=== PATIENT | female | born 1940 | race Caucasian/White ===

== ENCOUNTER 2018-05-01 15:13 | Inpatient (IN) ==
[2018-05-01] MEDS: Sod Chloride 0.9% Inj 1,000 ML IV.SIG SCH ×2 (16:08→16:53)
[2018-05-01] MEDS ORDERED: Acetaminophen 325 MG Tablet PO ONE (16:22)
[2018-05-01] MEDS ORDERED: Piperacil/Tazo 3.375 GM Premix 50 ML IV.SIG ONE (16:22)
[2018-05-01] MEDS ORDERED: Vancomycin Inj 1,000 MG in Sodium Chlor 0.9% Inj 250 ML IV.SIG ONE (16:22)
--- NOTE | 2018-05-01 16:23 | XR ---
EXAM DATE: 05/01/2018 4:20 PM EST AGE/SEX: 77 years / Female INDICATIONS: Fever. CLINICAL DATA: This is the patient's initial encounter. Patient reports that signs and symptoms have been present for 3 days and indicates a pain score of 0/10. MEDICAL/SURGICAL HISTORY: Hypertension. Diabetes. None. COMPARISON: No prior exams available for comparison. FINDINGS: A single AP view of the chest demonstrates the lungs to be symmetrically aerated without evidence of mass, infiltrate or effusion. The cardiomediastinal contours are unremarkable. Osseous structures a re intact. CONCLUSION: No acute intrathoracic disease. Electronically signed by: Sam Simmons MD 05/01/2018 4:21 PM EST
--- NOTE | 2018-05-01 16:25 | ED ---
HPI General Chief complaint: Diabetic Stated complaint: Right Foot Pain/Poss Infection Complaint Time Seen by Provider: 05/01/18 16:15 Source: patient and RN notes reviewed Mode of arrival: ambulatory Limitations: no limitations History of Present Illness HPI narrative: 77-year-old female presents to the emergency department for evaluation of right great toe infection. She states it started about a week ago , but has been worsening. She reports fevers that started today. She has history of diabetes, hypertension. She denies any cough, congestion, other symptoms. 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 Current pain is 7/10. Moderate severity. Patient also reports pain to the right knee since a fall 1 week ago. She states the pain to her knee is improving. Onset (ago): week(s) Location: right and lower extremity Radiation: non-radiation Severity: moderate Severity scale (1-10): 7 Quality: aching Pain Consistency: constant Relieving factors: none Exacerbating factors: none Associated symptoms: Reports fever/chills; Denies confusion, chest pain, cough, diaphoresis, headaches, loss of appetite, malaise, nausea/vomiting, rash, seizure, shortness of breath, syncope and weakness Related Data Home Medications Medication Instructions Recorded Confirmed chlorthalidone 25 mg PO DAILY 05/01/18 05/01/18 insulin aspart U-100 [Novolog 1 - 10 sliding scale dose SUBCUT 05/01/18 05/01/18 U-100 Insulin aspart] TIDAC insulin detemir U-100 [Levemir 30 unit SUBCUT QPM 05/01/18 05/01/18 U-100 Insulin] insulin detemir U-100 [Levemir 45 unit SUBCUT QAM 05/01/18 05/01/18 U-100 Insulin] metoprolol tartrate 12.5 mg PO BID 05/01/18 05/01/18 rosuvastatin [Crestor] 5 mg PO DAILY 05/01/18 05/01/18 Allergies Allergy/AdvReac Type Severity Reaction Status Date / Time adhesive Allergy Unknown Rash Unverified 05/01/18 15:33 Sulfa (Sulfonamide Allergy Unknown Hives Unverified 05/01/18 15:33 Antibiotics) acetaminophen [From Lortab] Allergy Hives Verified 05/01/18 15:33 hydrocodone [From Lortab] Allergy Hives Verified 05/01/18 15:33 lovastatin, amlodipine Allergy Intermediate Hives Uncoded 05/01/18 15:33 besylate, alcohol (drinking) PEPPERS Allergy Unknown Anaphylaxis Uncoded 05/01/18 15:33 Review of Systems ROS: all other systems reviewed are negative PMFSH Medical History Medical History Aneurysm (Acute) Diabetes (Acute) Hypertension (Acute) Social History Social History Substance History: No History of Abuse Second Hand Smoke Exposure: No Smoking Status: Never smoker How Often Do You Have a Drink Containing Alcohol: Never Recent Travel in [facility] within the Last 8 Weeks: No Recent Out of Country Travel within the Last 8 Weeks: No Exam Narrative Exam Narrative: GENERAL: Well-nourished, well-developed female patient, temp of 101.4 SKIN: Focused skin assessment warm/dry. Patient has ulcer to the dorsal aspect of the right great toe with erythema to the entire great toe and the distal foot HEAD: Normocephalic. Atraumatic EYES: No scleral icterus. No injection or drainage. NECK: Supple, trachea midline. No JVD or lymphadenopathy. CARDIOVASCULAR: Regular rate and rhythm without murmurs, gallops, or rubs. Right pedal pulse is 2+ RESPIRATORY: Breath sounds equal bilaterally. No accessory muscle use. Lung sounds are clear to auscultation GASTROINTESTINAL: Abdomen soft, non-tender, nondistended. MUSCULOSKELETAL: No cyanosis, or edema. Patient has full flexion-extension of the right knee BACK: Nontender without obvious deformity. No CVA tenderness. Course Initial Documented Vital Signs Temperature 101.4 F H 05/01/18 15:25 Pulse Rate 101 H 05/01/18 15:25 Respiratory Rate 22 05/01/18 15:25 Blood Pressure 179/79 H 05/01/18 15:25 Last Documented Vital Signs Temperature 101.4 F H 05/01/18 15:25 Pulse Rate 89 05/01/18 17:14 Respiratory Rate 23 05/01/18 16:57 Blood Pressure 162/72 H 05/01/18 16:57 Pulse Oximetry 98 05/01/18 16:57 Medical Decision Making MDM Narrative Medical decision making narrative: 77-year-old female, afebrile temperature 101.4, presents to the emergency department for right great toe infection. Patient is diabetic. Sepsis workup is initiated. IV is obtained. CBC, CMP, CRP, lactic acid, blood cultures x2, UA, chest x-ray, x-ray of the right foot, x-ray of the right knee are ordered and pending. Patient is given normal saline 2 L IV bolus, vancomycin 1 g IV, Zosyn 3.375 g IV. Patient states she is not allergic to Tylenol. She is given Tylenol 650 mg p.o. for fever. CBC shows leukocytosis 19.8. CMP shows slight hyponatremia 130, BUN 25, creatinine 1.48, hyperglycemia 357. CRP is 12. Lactic acid is 2.9. Magnesium is 2.1. UA is negative. Chest x-ray shows no acute intrathoracic disease. X- ray of the right foot shows no acute fracture or joint dislocation. X-ray of the right knee shows no acute fracture. Dr. Cabral accepted admission. Medical Screen Exam Complete: Yes Emergency Medical Condition: Yes Lab Data Result diagrams: 05/01/18 16:25 05/01/18 16:25 Lab Results 05/01/18 05/01/18 05/01/18 Range/Units 16:20 16:20 16:25 WBC 19.8 H (4.0-11.0) th/mm3 RBC 4.10 (4.00-5.30) mil/mm3 Hgb 13.7 (11.6-15.3) gm/dL Hct 38.4 (35.0-46.0) % MCV 93.5 (80.0-100.0) fL MCH 33.5 (27.0-34.0) pg MCHC 35.9 (32.0-36.0) % RDW 13.5 (11.6-17.2) % Plt Count 251 (150-450) th/mm3 MPV 7.5 (7.0-11.0) fL Neut % (Auto) 85.8 H (16.0-70.0) % Lymph % (Auto) 6.0 L (9.0-44.0) % Todd % (Auto) 7.7 (0.0-8.0) % Eos % (Auto) 0.2 (0.0-4.0) % Baso % (Auto) 0.3 (0.0-2.0) % Neut # (Auto) 17.0 H (1.8-7.7) th/mm3 Lymph # (Auto) 1.2 (1.0-4.8) th/mm3 Todd # (Auto) 1.5 H (0.0-0.9) th/mm3 Eos # (Auto) 0.0 (0.0-0.4) th/mm3 Baso # (Auto) 0.1 (0.0-0.2) th/mm3 WBC Differential . Differential Comment Auto diff final Sodium (136-145) meq/L Potassium (3.5-5.1) meq/L Chloride (98-107) meq/L Carbon Dioxide (21.0-32.0) meq/L Anion Gap (5-15) meq/L BUN (7-18) mg/dL Creatinine (0.50-1.00) mg/dL Estimated GFR (>89) mL/min Random Glucose (74-106) mg/dL Lactic Acid 2.9 H (0.4-2.0) mmol/L Calcium (8.5-10.1) mg/dL Magnesium (1.5-2.5) mg/dL Total Bilirubin (0.2-1.0) mg/dL AST (15-37) U/L ALT (10-53) U/L Alkaline Phosphatase (45-117) U/L C-Reactive Protein (0.00-0.30) mg/dL Total Protein (6.4-8.2) g/dL Albumin (3.4-5.0) g/dL Urine Color Yellow (Yellw/Straw) Urine Clarity Clear (Clear) Urine pH 5.0 (5.0-8.5) Ur Specific Whipple 1.032 (1.002-1.035) Urine Protein Negative (Neg-Trace) mg/dL Urine Glucose (UA) 500 or greater (Negative) mg/dL Urine Ketones Trace H (Negative) mg/dL Urine Occult Blood Negative (Negative) Urine Nitrate Negative (Negative) Urine Bilirubin Negative (Negative) Urine Urobilinogen Less than 2 (Less than 2) mg/dL Ur Leukocyte Esterase Negative (Negative) Urine Mucus Few H (Occasional) /lpf Micro UA Comment Cath-culture not ind Ur Microscopic Review Not Reportable Urine Culture Comments Cath-cult not ind 05/01/18 05/01/18 Range/Units 16:25 16:25 WBC (4.0-11.0) th/mm3 RBC (4.00-5.30) mil/mm3 Hgb (11.6-15.3) gm/dL Hct (35.0-46.0) % MCV (80.0-100.0) fL MCH (27.0-34.0) pg MCHC (32.0-36.0) % RDW (11.6-17.2) % Plt Count (150-450) th/mm3 MPV (7.0-11.0) fL Neut % (Auto) (16.0-70.0) % Lymph % (Auto) (9.0-44.0) % Todd % (Auto) (0.0-8.0) % Eos % (Auto) (0.0-4.0) % Baso % (Auto) (0.0-2.0) % Neut # (Auto) (1.8-7.7) th/mm3 Lymph # (Auto) (1.0-4.8) th/mm3 Todd # (Auto) (0.0-0.9) th/mm3 Eos # (Auto) (0.0-0.4) th/mm3 Baso # (Auto) (0.0-0.2) th/mm3 WBC Differential Differential Comment Sodium 130 L (136-145) meq/L Potassium 4.1 (3.5-5.1) meq/L Chloride 95 L (98-107) meq/L Carbon Dioxide 25.0 (21.0-32.0) meq/L Anion Gap 10 (5-15) meq/L BUN 25 H (7-18) mg/dL Creatinine 1.48 H (0.50-1.00) mg/dL Estimated GFR 34 L (>89) mL/min Random Glucose 357 H (74-106) mg/dL Lactic Acid (0.4-2.0) mmol/L Calcium 9.4 (8.5-10.1) mg/dL Magnesium 2.1 (1.5-2.5) mg/dL Total Bilirubin 1.1 H (0.2-1.0) mg/dL AST 11 L (15-37) U/L ALT 18 (10-53) U/L Alkaline Phosphatase 100 (45-117) U/L C-Reactive Protein 12.00 H (0.00-0.30) mg/dL Total Protein 8.2 (6.4-8.2) g/dL Albumin 3.6 (3.4-5.0) g/dL Urine Color (Yellw/Straw) Urine Clarity (Clear) Urine pH (5.0-8.5) Ur Specific Whipple (1.002-1.035) Urine Protein (Neg-Trace) mg/dL Urine Glucose (UA) (Negative) mg/dL Urine Ketones (Negative) mg/dL Urine Occult Blood (Negative) Urine Nitrate (Negative) Urine Bilirubin (Negative) Urine Urobilinogen (Less than 2) mg/dL Ur Leukocyte Esterase (Negative) Urine Mucus (Occasional) /lpf Micro UA Comment Ur Microscopic Review Urine Culture Comments Imaging Data Radiologist's impression: Chest X-Ray 05/01/18 15:48 CONCLUSION: No acute intrathoracic disease. Foot X-Ray 05/01/18 15:48 CONCLUSION: No acute fracture or joint dislocation. Primary degenerative changes are noted throughout the foot. Knee X-Ray 05/01/18 16:22 CONCLUSION: Advanced arthropathy with moderate joint effusion No evidence of acute fracture. Discharge Plan Discharge Disposition Patient Disposition: 30 Still Patient Discharge Details Diagnosis: Diabetic foot infection, Sepsis Physicians Team ED Provider: Ang Booker ED Midlevel Provider: Aiyana Patterson Primary Care Provider: Jose Manuel Doyle Other Providers: Marisel Marley Rxs /Orders / Referrals /Forms Prescriptions: No Action chlorthalidone 25 mg Tablet 25 mg PO DAILY RF: 0 insulin aspart U-100 [Novolog U-100 Insulin aspart] 100 unit/mL Solution 1 - 10 sliding scale dose SUBCUT TIDAC RF: 0 rosuvastatin [Crestor] 5 mg Tablet 5 mg PO DAILY RF: 0 metoprolol tartrate 25 mg Tablet 12.5 mg PO BID RF: 0 insulin detemir U-100 [Levemir U-100 Insulin] 100 unit/mL Solution 45 unit SUBCUT QAM RF: 0 insulin detemir U-100 [Levemir U-100 Insulin] 100 unit/mL Solution 30 unit SUBCUT QPM RF: 0 Discharge Interventions Interventions: Vital Signs Last Done: 05/01/18 15:25 Status ED Status: With Doctor
[2018-05-01] MEDS ORDERED: Bisacodyl 10 MG Supp RECTAL PRN (16:42)
--- NOTE | 2018-05-01 16:43 | XR ---
EXAM DATE: 05/01/2018 4:40 PM EST AGE/SEX: 77 years / Female INDICATIONS: Right foot pain, fall. CLINICAL DATA: This is the patient's initial encounter. Patient reports that signs and symptoms have been present for 1 day and indicates a pain score of 10/10. MEDICAL/SURGICAL HISTORY: Hypertension. Diabetes. None. COMPARISON: No prior exams available for comparison. FINDINGS: Bony structures are intact and in normal alignment. There are primary degenerative changes noted thro ughout the foot including the PIP and DIP joints. There are degenerative changes involving the tarsal bones. There is a prominent heel spur. There are vascular calcifications in the soft tissues. Osseou s density is normal. Soft tissues are unremarkable. No radiopaque foreign bodies seen. CONCLUSION: No acute fracture or joint dislocation. Primary degenerative changes are noted throughout the foot. Electronically signed by: Sam Simmons MD 05/01/2018 4:41 PM EST
[2018-05-01 16:46] LABS: Baso # (Auto) 0.1 th/mm3 (0.0-0.2); Baso % (Auto) 0.3 % (0.0-2.0); Eos % (Auto) 0.2 % (0.0-4.0); Hematocrit 38.4 % (35.0-46.0); Hemoglobin 13.7 gm/dL (11.6-15.3); Lymph # (Auto) 1.2 th/mm3 (1.0-4.8); Mean Corpuscular HGB Conc 35.9 % (32.0-36.0); Mean Corpuscular Hemoglobin 33.5 pg (27.0-34.0); Mean Corpuscular Volume 93.5 fL (80.0-100.0); Mean Platelet Volume 7.5 fL (7.0-11.0); Mono # (Auto) 1.5 th/mm3 (0.0-0.9); Mono % (Auto) 7.7 % (0.0-8.0); Neut % (Auto) 85.8 % (16.0-70.0); Platelet Count 251 th/mm3 (150-450); Red Cell Distribution Width 13.5 % (11.6-17.2); White Blood Count 19.8 th/mm3 (4.0-11.0)
[2018-05-01] MEDS ORDERED: Dextrose 50% in Water 50 ML Vial IV.PUSH PRN (16:47)
[2018-05-01 16:51] LABS: Bilirubin,Urine Negative (Negative); Clarity,Urine Clear (Clear); Color,Urine Yellow (Yellw/Straw); Glucose,Urine (UA) 500 or Greater mg/dL (Negative); Leukocyte Esterase,Urine Negative (Negative); Mucus,Urine Few /lpf (Occasional); Nitrite,Urine Negative (Negative); Specific Gravity,Urine 1.032 (1.002-1.035)
[2018-05-01 16:56] LABS: Albumin 3.6 g/dL (3.4-5.0); Anion Gap 10 meq/L (5-15); Aspartate Aminotransferase 11 U/L (15-37); Blood Urea Nitrogen 25 mg/dL (7-18); Calcium 9.4 mg/dL (8.5-10.1); Chloride 95 meq/L (98-107); Glomerular Filtration Rate 34 mL/min (>89); Glucose,Random 357 mg/dL (74-106); Magnesium 2.1 mg/dL (1.5-2.5); Potassium 4.1 meq/L (3.5-5.1); Sodium 130 meq/L (136-145)
[2018-05-01 16:57] LABS: Alanine Aminotransferase 18 U/L (10-53)
[2018-05-01 17:00] LABS: Alkaline Phosphatase 100 U/L (45-117); Total Protein 8.2 g/dL (6.4-8.2)
--- NOTE | 2018-05-01 17:01 | XR ---
EXAM DATE: 05/01/2018 4:58 PM EST AGE/SEX: 77 years / Female INDICATIONS: Right knee pain, fall. CLINICAL DATA: This is the patient's initial encounter. Patient reports that signs and symptoms have been present for 4 - 6 days and indicates a pain score of 5/10. MEDICAL/SURGICAL HISTORY: Hypertension. Diabetes. None. COMPARISON: No prior exams available for comparison. FINDINGS: 3 compartment arthropathy is noted. Advanced degenerative disease is identified involving the medial joint compartment and patellofemoral joint. There is marked joint space narrowing with [id number] apposition, subchondral sclerosis, re modeling of the articulating surface and marginal spurring. Moderate sized joint effusion is noted. Bony structures are intact. CONCLUSION: Advanced arthropathy with moderate joint effusion No evidence of acute fracture. Electronically signed by: Ez Jaeger MD 05/01/2018 5:00 PM EST
[2018-05-01] MEDS: Insulin NovoLOG Aspart Correctional Sugar Inj SQ SCH ×2 (17:22→21:34)
[2018-05-01] MEDS: KCL 20 mEq/NACL 0.45% Inj 1,000 ML IV.CONT SCH (18:20)
[2018-05-01] MEDS ORDERED: Gadobutrol PF 10 MMOL/10 ML Vial (for RAD) IV.SIG ONE (20:24)
--- NOTE | 2018-05-01 20:43 | MR ---
EXAM DATE: 05/01/2018 8:29 PM EST AGE/SEX: 77 years / Female INDICATIONS: . Great toe infection. CLINICAL DATA: This is the patient's initial encounter. Patient reports that signs and symptoms have been present for 1 day and indicates a pain score of 0/10. MEDICAL/SURGICAL HISTORY: Diabetes mellitus type II. Diabetes mellitus type II. Cholecystectom y. COMPARISON: [facility] – [place], FOOT COMPLETE RIGHT 3V, 05/01/2018. . TECHNIQUE: Multiplanar, multisequence MRI examination was performed without contrast and after th e intravenous administration of 8 ml Gadavist (gadobutrol) single exam dose. FINDINGS: There is soft tissue swelling and ulceration distally of the great toe. There is marrow edema, cortic al indistinctness and patchy T1 signal abnormality essentially throughout the distal phalanx most pro nounced in the distal half of the bone. There is mild marrow edema without corresponding T1 signal ab normality of the proximal phalanx. 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 Mild osteoarthritis seen of the metatarsophalangeal and interphalangeal joints of the lesser toes. Reactive-appearing soft tissue and bony enhancement of the great toe. No drainable abscess demonstrat ed. CONCLUSION: 1. Soft tissue swelling and ulceration distally of the great toe. There is suspected osteomyelitis o f the distal phalanx, mostly the distal half of the bone. No osteomyelitis of the great toe proximal phalanx or other bones of the right foot. 2. No abscess. Electronically signed by: Siddhartha Jones MD 05/01/2018 8:42 PM EST
[2018-05-01] MEDS: Senna/Docusate Sodium 8.6/50 MG Tablet PO SCH ×2 (21:23→21:26)
[2018-05-01] MEDS: Piperacil/Tazo 3.375 GM Premix 50 ML IV.SIG SCH (21:24)
[2018-05-02] MEDS: Piperacil/Tazo 3.375 GM Premix 50 ML IV.SIG SCH ×5 (04:18→22:22)
[2018-05-02] MEDS: KCL 20 mEq/NACL 0.45% Inj 1,000 ML IV.CONT SCH ×2 (04:19→17:25)
[2018-05-02] MEDS: Vancomycin Inj 1,000 MG in Sodium Chlor 0.9% Inj 250 ML IV.SIG SCH ×2 (05:52→17:34)
[2018-05-02 06:07] LABS: Baso % (Auto) 0.3 % (0.0-2.0); Eos # (Auto) 0.3 th/mm3 (0.0-0.4); Eos % (Auto) 2.1 % (0.0-4.0); Hematocrit 32.8 % (35.0-46.0); Hemoglobin 11.7 gm/dL (11.6-15.3); Lymph # (Auto) 1.3 th/mm3 (1.0-4.8); Lymph % (Auto) 10.5 % (9.0-44.0); Mean Corpuscular HGB Conc 35.6 % (32.0-36.0); Mean Corpuscular Hemoglobin 32.9 pg (27.0-34.0); Mean Corpuscular Volume 92.3 fL (80.0-100.0); Mean Platelet Volume 7.3 fL (7.0-11.0); Mono # (Auto) 1.1 th/mm3 (0.0-0.9); Mono % (Auto) 8.9 % (0.0-8.0); Neut % (Auto) 78.2 % (16.0-70.0); Platelet Count 202 th/mm3 (150-450); Red Blood Count 3.56 mil/mm3 (4.00-5.30); Red Cell Distribution Width 13.2 % (11.6-17.2); White Blood Count 12.8 th/mm3 (4.0-11.0)
[2018-05-02] MEDS ORDERED: Metoprolol Tartrate 25 MG Tablet PO ONE (06:25)
[2018-05-02] MEDS ORDERED: Chlorhexidine Gluconate 2% 1 Pack (2 Cloths) TOPICAL ONE (06:25)
[2018-05-02 06:45] LABS: Carbon Dioxide 22.9 meq/L (21.0-32.0)
[2018-05-02] MEDS ORDERED: Sodium Chlor 0.9% Inj 500 ML IV.SIG SCH (07:00)
[2018-05-02] MEDS: Insulin NovoLOG Aspart Correctional Sugar Inj SQ SCH ×4 (09:06→20:36)
--- NOTE | 2018-05-02 10:07 | ECG ---
Date Performed: 05/02/2018 Time Performed: 09:27:26 PTAGE: 77 years EKG: Sinus rhythm NORMAL ECG Compared to prior electrocardiogram, rate has increased . PREVIOUS TRACING : 07/27/2001 17.19 DOCTOR: Martin Temple Interpretating Date/Time 05/02/2018 10:06:06
--- NOTE | 2018-05-02 10:26 | P.CONPOD ---
History of Present Illness Service: podiatry Consult date: 05/02/18 Reason for Consult: right hallux infection Primary Care Provider: Jose Manuel Doyle History of Present Illness: Patient states 3 week history of issue with right hallux. She says it has become more red, swollen, and painful over the past week. Redness began traveling up the foot and ankle from that area. She became very sick with a fever and other constitutional symptoms and came in for admission. MRI showed findings consistent with osteomyelitis to distal phalanx of hallux. She does not see a senior solutions consultant as outpatient currently. Review of Systems All other systems reviewed negative except as stated in HPI PMFSH - History History Provided By: Patient - Medical History Medical History: Medical History (Last Updated 05/01/18 @ 15:33 by Henny Carpenter) Aneurysm Diabetes Hypertension - Tobacco History Second Hand Smoke Exposure: No Tobacco Use In Past 30 Days: No Smoking Status: Never smoker - Alcohol History How Often Do You Have a Drink Containing Alcohol: Never - Substance Use History Substance History: No History of Abuse - Travel History Recent Travel in the [place] Within the Last 8 Weeks: No Recent Travel Out of the Country Within the Last 8 Weeks: No - Immunization History Tetanus Immunization: Unsure Hx Influenza Vaccine This Season: Yes Medications and Allergies Active Medications: Active Medications Al Hydroxide/Mg Hydroxide (Milk Of Magnesia Liq) 30 ml PO Q12H PRN PRN Reason: Mild Constipation Al Hydroxide/Mg Hydroxide (Milk Of Magnesia Liq) 30 ml PO Q12H PRN PRN Reason: Mild Constipation Bisacodyl (Dulcolax Supp) 10 mg RECTAL DAILY PRN PRN Reason: SEVERE CONSITIPATION Clonidine HCl (Catapres) 0.2 mg PO Q6H PRN PRN Reason: SBP>160, DBP>90 Dextrose (D50w Vial) 50 ml IV.PUSH UNSCH PRN PRN Reason: PER HYPOGLYCEMIA PROTOCOL Enalaprilat (Vasotec Inj) 1.5 mg IV.PUSH Q6H PRN PRN Reason: SYS BP GREATER THAN 160 MMHG Glucagon (Glucagon Inj) 1 mg OTHER PRN PRN PRN Reason: for Hypoglycemia Protocol Piperacillin/Tazobactam/Dextrose (Zosyn 3.375 Gm Premix) 50 mls @ 100 mls/hr IV.SIG Q6H [facility] Last Admin: 05/02/18 09:11 Dose: 100 mls/hr Vancomycin HCl 1,000 mg/ (Sodium Chloride) 250 mls @ 250 mls/hr IV.SIG Q12H [facility] Last Infusion: 05/02/18 07:58 Dose: Infused Potassium Chloride/Sodium Chloride (Potassium Chlor 20 Meq/Nacl 0.45% Inj) 1, 000 mls @ 84 mls/hr IV.CONT .[id number] [facility] Last Admin: 05/02/18 04:19 Dose: 84 mls/hr Sodium Chloride (Ns Inj) 500 mls @ 30 mls/hr IV.SIG .Q10H [facility] Lactated Ringer's (Lr 1000 Ml Inj) 1,000 mls @ 30 mls/hr IV.SIG .Q24H [facility] Stop: 05/03/18 06:29 Ibuprofen (Motrin) 600 mg PO Q6HR PRN PRN Reason: temp above 100f Insulin Aspart (Novolog Insulin Correctional Sugar Inj) 0 unit SQ ACHS [facility]; Protocol Last Admin: 05/02/18 09:06 Dose: 100 unit Lactulose (Lactulose Liq) 30 ml PO DAILY PRN PRN Reason: SEVERE CONSITIPATION Ondansetron HCl (Zofran Inj) 4 mg IV.PUSH Q6H PRN PRN Reason: NAUSEA OR VOMITING Senna/Docusate Sodium (Maribel-Colace) 1 tab PO BID [facility] Last Admin: 05/01/18 21:23 Dose: 1 tab Senna/Docusate Sodium (Maribel-Colace) 1 tab PO BID [facility] Last Admin: 05/01/18 21:26 Dose: Not Given Sennosides (Senokot) 17.2 mg PO Q12H PRN PRN Reason: Moderate Constipation Allergies Allergy/AdvReac Type Severity Reaction Status Date / Time adhesive Allergy Unknown Rash Unverified 05/01/18 15:33 Sulfa (Sulfonamide Allergy Unknown Hives Unverified 05/01/18 15:33 Antibiotics) acetaminophen [From Lortab] Allergy Hives Verified 05/01/18 15:33 hydrocodone [From Lortab] Allergy Hives Verified 05/01/18 15:33 lovastatin, amlodipine Allergy Intermediate Hives Uncoded 05/01/18 15:33 besylate, alcohol (drinking) PEPPERS Allergy Unknown Anaphylaxis Uncoded 05/01/18 15:33 Home Medications Medication Instructions Recorded Confirmed Type chlorthalidone 25 mg PO DAILY 05/01/18 05/01/18 History insulin aspart U-100 [Novolog 1 - 10 sliding scale dose SUBCUT 05/01/18 History U-100 Insulin aspart] TIDAC insulin detemir U-100 [Levemir 30 unit SUBCUT QPM 05/01/18 05/01/18 History U-100 Insulin] insulin detemir U-100 [Levemir 45 unit SUBCUT QAM 05/01/18 05/01/18 History U-100 Insulin] metoprolol tartrate 12.5 mg PO BID 05/01/18 05/01/18 History rosuvastatin [Crestor] 5 mg PO DAILY 05/01/18 05/01/18 History Physical Exam Vital signs: Vital Signs 05/01/18 15:25 05/01/18 15:33 05/01/18 16:57 Temperature 101.4 F H Pulse Rate 101 H 93 H Respiratory Rate 22 23 Blood Pressure 179/79 H 162/72 H Pulse Oximetry 98 98 05/01/18 17:14 05/01/18 18:11 05/01/18 18:46 Temperature 98.5 F 98.8 F Pulse Rate 89 85 86 Respiratory Rate 18 16 Blood Pressure 148/62 H 160/67 H Pulse Oximetry 97 05/01/18 20:00 05/02/18 00:00 05/02/18 08:00 Temperature 97.7 F 98.1 F 97.8 F Pulse Rate 85 80 79 Respiratory Rate 17 18 20 Blood Pressure 138/75 128/66 144/65 H Pulse Oximetry 96 96 96 Intake & Output 05/01/18 05/02/18 05/02/18 18:59 06:59 18:59 Intake Total 2300 / 2300 1100 / 1100 250 / 250 Output Total 2 / 2 Balance 2300 / 2300 1100 / 1100 248 / 248 Weight 82 kg 84.2 kg Intake: IV 2300 / 2300 1100 / 1100 250 / 250 Potassium Chlor 20 mEq/NACL 0. 1000 / 1000 45% Inj 1,000 ML @ 84 mls/hr IV .CONT .[id number] [facility] Rx#:[id number] Zosyn 3.375 GM Premix 50 ML @ 50 / 50 100 / 100 100 mls/hr IV.SIG Q6H [facility] Rx#: [id number] NS Inj 1,000 ML @ 2000 mls/hr 1999 / 1999 IV.SIG Q30M [facility] Rx#:[id number] Vancomycin Inj 1,000 MG In NS 250 / 250 250 / 250 Inj 250 ML @ 250 mls/hr IV.SIG Q12H [facility] Rx#:[id number] Output: Urine 2 / 2 Narrative: Right distal medial hallux with necrotic ulceration and erythema extending to dorsal foot today. Mild edema. No stefanie purulence noted coming from wound area at this time. I do not palpate pedal pulses. Skin temperature is warm bilaterally, however. Sensation absent to light touch. Results - Labs CBC & Chem 7: 05/02/18 05:47 05/02/18 05:47 Laboratory Results - last 24 hr 05/01/18 05/01/18 05/01/18 16:20 16:20 16:25 WBC 19.8 H RBC 4.10 Hgb 13.7 Hct 38.4 MCV 93.5 MCH 33.5 MCHC 35.9 RDW 13.5 Plt Count 251 MPV 7.5 Neut % (Auto) 85.8 H Lymph % (Auto) 6.0 L [place] % (Auto) 7.7 Eos % (Auto) 0.2 Baso % (Auto) 0.3 Neut # (Auto) 17.0 H Lymph # (Auto) 1.2 [place] # (Auto) 1.5 H Eos # (Auto) 0.0 Baso # (Auto) 0.1 WBC Differential . Differential Comment Auto diff final Sodium Potassium Chloride Carbon Dioxide Anion Gap BUN Creatinine Estimated GFR POC Glucose Random Glucose Lactic Acid 2.9 H Calcium Magnesium Total Bilirubin AST ALT Alkaline Phosphatase C-Reactive Protein Total Protein Albumin Urine Color Yellow Urine Clarity Clear Urine pH 5.0 Ur Specific [place] 1.032 Urine Protein Negative Urine Glucose (UA) 500 or greater Urine Ketones Trace H Urine Occult Blood Negative Urine Nitrate Negative Urine Bilirubin Negative Urine Urobilinogen Less than 2 Ur Leukocyte Esterase Negative Urine Mucus Few H Micro UA Comment Cath-culture not ind Ur Microscopic Review Not Reportable Urine Culture Comments Cath-cult not ind 05/01/18 05/01/18 05/01/18 16:25 16:25 21:25 WBC RBC Hgb Hct MCV MCH MCHC RDW Plt Count MPV Neut % (Auto) Lymph % (Auto) [place] % (Auto) Eos % (Auto) Baso % (Auto) Neut # (Auto) Lymph # (Auto) [place] # (Auto) Eos # (Auto) Baso # (Auto) WBC Differential Differential Comment Sodium 130 L Potassium 4.1 Chloride 95 L Carbon Dioxide 25.0 Anion Gap 10 BUN 25 H Creatinine 1.48 H Estimated GFR 34 L POC Glucose 243 H Random Glucose 357 H Lactic Acid Calcium 9.4 Magnesium 2.1 Total Bilirubin 1.1 H AST 11 L ALT 18 Alkaline Phosphatase 100 C-Reactive Protein 12.00 H Total Protein 8.2 Albumin 3.6 Urine Color Urine Clarity Urine pH Ur Specific [place] Urine Protein Urine Glucose (UA) Urine Ketones Urine Occult Blood Urine Nitrate Urine Bilirubin Urine Urobilinogen Ur Leukocyte Esterase Urine Mucus Micro UA Comment Ur Microscopic Review Urine Culture Comments 05/01/18 05/02/18 05/02/18 21:27 00:39 05:47 WBC 12.8 H RBC 3.56 L Hgb 11.7 D Hct 32.8 L MCV 92.3 MCH 32.9 MCHC 35.6 RDW 13.2 Plt Count 202 MPV 7.3 Neut % (Auto) 78.2 H Lymph % (Auto) 10.5 [place] % (Auto) 8.9 H Eos % (Auto) 2.1 Baso % (Auto) 0.3 Neut # (Auto) 10.0 H Lymph # (Auto) 1.3 [place] # (Auto) 1.1 H Eos # (Auto) 0.3 Baso # (Auto) 0.0 WBC Differential . Differential Comment Auto diff final Sodium Potassium Chloride Carbon Dioxide Anion Gap BUN Creatinine Estimated GFR POC Glucose 238 H Random Glucose Lactic Acid 1.5 Calcium Magnesium Total Bilirubin AST ALT Alkaline Phosphatase C-Reactive Protein Total Protein Albumin Urine Color Urine Clarity Urine pH Ur Specific [place] Urine Protein Urine Glucose (UA) Urine Ketones Urine Occult Blood Urine Nitrate Urine Bilirubin Urine Urobilinogen Ur Leukocyte Esterase Urine Mucus Micro UA Comment Ur Microscopic Review Urine Culture Comments 05/02/18 05:47 WBC RBC Hgb Hct MCV MCH MCHC RDW Plt Count MPV Neut % (Auto) Lymph % (Auto) [place] % (Auto) Eos % (Auto) Baso % (Auto) Neut # (Auto) Lymph # (Auto) [place] # (Auto) Eos # (Auto) Baso # (Auto) WBC Differential Differential Comment Sodium 138 Potassium 4.0 Chloride 105 D Carbon Dioxide 22.9 Anion Gap 10 BUN 18 Creatinine 0.96 Estimated GFR 57 L POC Glucose Random Glucose 240 H D Lactic Acid Calcium 8.0 L D Magnesium Total Bilirubin AST ALT Alkaline Phosphatase C-Reactive Protein Total Protein Albumin Urine Color Urine Clarity Urine pH Ur Specific [place] Urine Protein Urine Glucose (UA) Urine Ketones Urine Occult Blood Urine Nitrate Urine Bilirubin Urine Urobilinogen Ur Leukocyte Esterase Urine Mucus Micro UA Comment Ur Microscopic Review Urine Culture Comments Microbiology 05/01/18 16:25 Blood - Peripheral Aerobic Blood Culture - Preliminary gram positive cocci 05/01/18 16:25 Blood - Peripheral Anaerobic Blood Culture - Preliminary gram positive cocci 05/01/18 16:20 Blood - Peripheral Aerobic Blood Culture - Preliminary gram positive cocci 05/01/18 16:20 Blood - Peripheral Anaerobic Blood Culture - Preliminary gram positive cocci - Imaging Impressions Chest X-Ray 05/01/18 15:48 CONCLUSION: No acute intrathoracic disease. Foot X-Ray 05/01/18 15:48 CONCLUSION: No acute fracture or joint dislocation. Primary degenerative changes are noted throughout the foot. Knee X-Ray 05/01/18 16:22 CONCLUSION: Advanced arthropathy with moderate joint effusion No evidence of acute fracture. Foot MRI 05/01/18 18:30 CONCLUSION: 1. Soft tissue swelling and ulceration distally of the great toe. There is suspected osteomyelitis of the distal phalanx, mostly the distal half of the bone. No osteomyelitis of the great toe proximal phalanx or other bones of the right foot. 2. No abscess. Assessment and Plan - Assessment (1) Diabetic foot infection Code(s): E11.628 - Type 2 diabetes mellitus with other skin complications; L08.9 - Local infection of the skin and subcutaneous tissue, unspecified Status: Acute (2) Sepsis Code(s): A41.9 - Sepsis, unspecified organism Status: Acute - Plan Due to severity of infection with patient arriving septic, patient will be taken to OR today for I&D vs amputation right great toe NPO Discussed risks, benefits, potential complications with patient, and that I will try to salvage as much of the hallux as possible, but whether the surgical incision will heal is to be determined, and if it fails to heal, she may require revision amputation of remainder of hallux. Vascular consulted to evaluate/treat DULCE ordered (2) Sepsis Qualifiers: Sepsis type: sepsis due to unspecified organism Qualified Code(s): A41.9 - Sepsis, unspecified organism
[2018-05-02] MEDS ORDERED: Bupivacaine PF 0.25% Inj 30 ML Vial ONE (11:07)
--- NOTE | 2018-05-02 11:39 | P.HPIM ---
History of Present Illness Primary Care Physician: Jose Manuel Doyle History of Present Illness: This a 77-year-old female patient with past medical history which includes chronic kidney disease stage II, diabetes mellitus type 2 , diabetic retinopathy, depression, and hypertension. Patient presented to the ER yesterday due to nonhealing wound right great toe, with fevers and generally feeling unwell. Patient reports that she has had a nonhealing wound on the right great toe for approximately 3 weeks. She reports stepped on a piece of glass. Patient reports for the past week it is been getting progressively worse. Patient states that it has become more red, swollen, and painful over the past week. Redness began traveling up the foot and ankle from that area. She running a fever and generally feeling unwell yesterday therefore she proceeded to the emergency department for further evaluation and treatment. Patient reports she has not yet seen outpatient podiatry or PCP for treatment of the wound. Patient denies nausea vomiting diarrhea constipation shortness of breath or chest pain. MRI showed findings consistent with osteomyelitis to distal phalanx of hallux. She does not see a real estate investment analyst as outpatient currently. PMH: chronic kidney disease stage II, diabetes mellitus type 2, diabetic retinopathy , depression, and hypertension PSxH: Cataract surgery, left scopic cholecystectomy, colonoscopy, foot surgery, Iridotomy by YAG laser FMH: CAD, thyroid disorder, breast cancer, colon cancer, diabetes mellitus and hypertension Social history: patient has been approximately 5 years ago she now lives alone in Denies EtOH use Denies tobacco use now or in the past Diagnosis (1) Diabetic foot infection: Inpatient Certification Inpatient Certification: I certify that the inpatient services were ordered in accordance with Medicare regulations governing the order. This includes certification that hospital inpatient services are reasonable and necessary and in the case of services not specified as inpatient-only under 42 CFR 419.22(n), that they are appropriately provided as inpatient services in accordance to with the 2-midnight benchmark under 43 CFR 412.3(e) Estimated Total Length of Stay (Days): 3 Plans for Post Hospital Care: Not yet determined Medications and Allergies Allergies Allergy/AdvReac Type Severity Reaction Status Date / Time adhesive Allergy Unknown Rash Verified 05/05/18 12:26 Sulfa (Sulfonamide Allergy Unknown Hives Verified 05/05/18 12:26 Antibiotics) acetaminophen [From Lortab] Allergy Hives Verified 05/01/18 15:33 hydrocodone [From Lortab] Allergy Hives Verified 05/01/18 15:33 lovastatin, amlodipine Allergy Intermediate Hives Uncoded 05/01/18 15:33 besylate, alcohol (drinking) PEPPERS Allergy Unknown Anaphylaxis Uncoded 05/01/18 15:33 Home Medications Medication Instructions Recorded Confirmed Type chlorthalidone 25 mg PO DAILY 05/01/18 05/01/18 History insulin aspart U-100 [Novolog 1 - 10 sliding scale dose SUBCUT 05/01/18 History U-100 Insulin aspart] TIDAC insulin detemir U-100 [Levemir 30 unit SUBCUT QPM 05/01/18 05/01/18 History U-100 Insulin] insulin detemir U-100 [Levemir 45 unit SUBCUT QAM 05/01/18 05/01/18 History U-100 Insulin] metoprolol tartrate 12.5 mg PO BID 05/01/18 05/01/18 History rosuvastatin [Crestor] 5 mg PO DAILY 05/01/18 05/01/18 History Active Medications: Active Medications Al Hydroxide/Mg Hydroxide (Milk Of Magnesia Liq) 30 ml PO Q12H PRN PRN Reason: Mild Constipation Al Hydroxide/Mg Hydroxide (Milk Of Magnesia Liq) 30 ml PO Q12H PRN PRN Reason: Mild Constipation Bisacodyl (Dulcolax Supp) 10 mg RECTAL DAILY PRN PRN Reason: SEVERE CONSITIPATION Clonidine HCl (Catapres) 0.2 mg PO Q6H PRN PRN Reason: SBP>160, DBP>90 Dextrose (D50w Vial) 50 ml IV.PUSH UNSCH PRN PRN Reason: PER HYPOGLYCEMIA PROTOCOL Enalaprilat (Vasotec Inj) 1.5 mg IV.PUSH Q6H PRN PRN Reason: SYS BP GREATER THAN 160 MMHG Glucagon (Glucagon Inj) 1 mg OTHER PRN PRN PRN Reason: for Hypoglycemia Protocol Piperacillin/Tazobactam/Dextrose (Zosyn 3.375 Gm Premix) 50 mls @ 100 mls/hr IV.SIG Q6H [facility] Last Admin: 05/02/18 09:11 Dose: 100 mls/hr Vancomycin HCl 1,000 mg/ (Sodium Chloride) 250 mls @ 250 mls/hr IV.SIG Q12H [facility] Last Infusion: 05/02/18 07:58 Dose: Infused Potassium Chloride/Sodium Chloride (Potassium Chlor 20 Meq/Nacl 0.45% Inj) 1, 000 mls @ 84 mls/hr IV.CONT .[id number] [facility] Last Admin: 05/02/18 04:19 Dose: 84 mls/hr Sodium Chloride (Ns Inj) 500 mls @ 30 mls/hr IV.SIG .Q10H [facility] Lactated Ringer's (Lr 1000 Ml Inj) 1,000 mls @ 30 mls/hr IV.SIG .Q24H [facility] Stop: 05/03/18 06:29 Ibuprofen (Motrin) 600 mg PO Q6HR PRN PRN Reason: temp above 100f Insulin Aspart (Novolog Insulin Correctional Sugar Inj) 0 unit SQ ACHS [facility]; Protocol Last Admin: 05/02/18 09:06 Dose: 100 unit Lactulose (Lactulose Liq) 30 ml PO DAILY PRN PRN Reason: SEVERE CONSITIPATION Ondansetron HCl (Zofran Inj) 4 mg IV.PUSH Q6H PRN PRN Reason: NAUSEA OR VOMITING Senna/Docusate Sodium (Maribel-Colace) 1 tab PO BID [facility] Last Admin: 05/01/18 21:23 Dose: 1 tab Senna/Docusate Sodium (Maribel-Colace) 1 tab PO BID [facility] Last Admin: 05/01/18 21:26 Dose: Not Given Sennosides (Senokot) 17.2 mg PO Q12H PRN PRN Reason: Moderate Constipation Physical Exam Vital signs: Last Vital Signs Temp 97.8 F 05/02/18 08:00 Pulse 79 05/02/18 08:00 Resp 20 05/02/18 08:00 BP 144/65 H 05/02/18 08:00 Pulse Ox 96 05/02/18 08:00 Narrative: GENERAL: This is a obese 77-year-old female, well-developed patient, in no apparent distress. CARDIOVASCULAR: Regular rate and rhythm RESPIRATORY: Clear to auscultation. Breath sounds equal bilaterally. GASTROINTESTINAL: Abdomen soft, non-tender, nondistended. Normal active bowel sounds MUSCULOSKELETAL: Postop dressing dry and intact NEURO: Alert & Oriented. Moves all ext x4 Results Labs CBC & Chem 7: 05/06/18 06:43 05/06/18 06:43 Caprini VTE Risk Assessment Caprini VTE Risk Assessment: Moderate/High Risk (score >= 2) Caprini Risk Assessment Model: Point Value = 1 Point Value = 2 Point Value = 3 Point Value = 5 Age 41-60 Minor surgery BMI > 25 kg/m2 Swollen legs Varicose veins or History of unexplained or recurrent spontaneous Oral contraceptives or hormone replacement Sepsis (< 1 month) Serious lung disease, including pneumonia (< 1 month) Abnormal pulmonary function Acute myocardial infarction Congestive heart failure (< 1 month) History of inflammatory bowel disease Medical patient at bed rest Age 61-74 Arthroscopic surgery Major open surgery (> 45 min) Laparoscopic surgery (> 45 min) Malignancy Confined to bed (> 72 hours) Immobilizing plaster cast Central venous access Age >= 75 History of VTE Family history of VTE Factor V Leiden Prothrombin [id number] Lupus anticoagulant Anticardiolipin antibodies Elevated serum homocysteine Heparin-induced thrombocytopenia Other congenital or acquired thrombophilia Stroke (< 1 month) Elective arthroplasty Hip, pelvis, or leg fracture Acute spinal cord injury (< 1 month) Prophylaxis Regimen: Total Risk Factor Score Risk Level Prophylaxis Regimen 0-1 Low Early ambulation 2 Moderate Order ONE of the following: *Sequential Compression Device (SCD) *Heparin 5000 units SQ BID 3-4 Higher Order ONE of the following medications: *Heparin 5000 units SQ TID *Enoxaparin/Lovenox 40 mg SQ daily (WT < 150 kg, CrCl > 30 mL/min) *Enoxaparin/Lovenox 30 mg SQ daily (WT < 150 kg, CrCl > 10-29 mL/min) *Enoxaparin/Lovenox 30 mg SQ BID (WT < 150 kg, CrCl > 30 mL/min) AND/OR *Sequential Compression Device (SCD) 5 or more Highest Order ONE of the following medications: *Heparin 5000 units SQ TID (Preferred with Epidurals) *Enoxaparin/Lovenox 40 mg SQ daily (WT < 150 kg, CrCl > 30 mL/min) *Enoxaparin/Lovenox 30 mg SQ daily (WT < 150 kg, CrCl > 10-29 mL/min) *Enoxaparin/Lovenox 30 mg SQ BID (WT < 150 kg, CrCl > 30 mL/min) AND *Sequential Compression Device (SCD) Assessment and Plan Assessment (1) Diabetic foot infection: Code(s): E11.628 - Type 2 diabetes mellitus with other skin complications; L08.9 - Local infection of the skin and subcutaneous tissue, unspecified Status: Acute Plan This a 77-year-old female patient with past medical history which includes chronic kidney disease stage II, diabetes mellitus type 2, diabetic retinopathy , depression, and hypertension. Patient presented to the ER yesterday due to nonhealing wound right great toe, with fevers and generally feeling unwell. Patient reports that she has had a nonhealing wound on the right great toe for approximately 3 weeks. She stepped on a piece of glass. Patient reports for the past week it is been getting progressively worse. Patient states that it has become more red, swollen, and painful over the past week. Redness began traveling up the foot and ankle from that area. She running a fever and generally feeling unwell yesterday therefore she proceeded to the emergency department for further evaluation and treatment. Patient reports she has not yet seen outpatient podiatry or PCP for treatment of the wound. Patient denies nausea vomiting diarrhea constipation shortness of breath or chest pain. MRI showed findings consistent with osteomyelitis to distal phalanx of hallux. She does not see a real estate investment analyst as outpatient currently. Diabetic foot infection Osteomyelitis Chest X-Ray 05/01/18No acute intrathoracic disease. Foot X-Ray 05/01/18No acute fracture or joint dislocation. Primary degenerative changes are noted throughout the foot. Knee X-Ray 05/01/18 Advanced arthropathy with moderate joint effusion No evidence of acute fracture. Foot MRI 05/01/18 1. Soft tissue swelling and ulceration distally of the great toe. There is suspected osteomyelitis of the distal phalanx, mostly the distal half of the bone. No osteomyelitis of the great toe proximal phalanx or other bones of the right foot. 2. No abscess. -blood cultures growing gram positive cocci -consult ID -Patient started on Zosyn and vancomycin - patient allergic to acetomorphine - ibuprofen and Roxicodone as needed for pain -Consultation to podiatry, appreciate input Patient is status post Amputation distal right hallux with debridement of necrotic bone and soft tissue 05/02/[address] Agee Diabetes mellitus type 2 At home patient takes Levemir 45 mg subcu every morning and Levemir 30 mg subcu every afternoon Accu-Cheks AC at bedtime with sliding scale insulin coverage Start diabetic diet postoperatively Start Levemir 15 units BID Hypertension Continue patient's home metoprolol 12.5 mg p.o. twice daily Hyperlipidemia Continue patient's home Crestor 5 mg p.o. daily Chronic kidney disease stage II Avoid nephrotoxic agents monitor renal function DVT prophylaxis with SCDs Attending Attestation The exam, history, and the medical decision-making described in the above note were completed with the assistance of the mid-level provider. I reviewed and agree with the findings presented. I attest that I had a [id number] encounter with the patient on the same day, and personally performed and documented my assessment and findings in the medical record. Patient examined. Assessment and plan formulated with Marge Choudhary PA-C. I agree with the above. H&P: Quality VTE Deep Vein Thrombosis/Pulmonary Embolism Present on Admission: No
[2018-05-02] MEDS ORDERED: fentaNYL Citrate Inj 100 MCG/2 ML Ampul ONE (11:44)
--- NOTE | 2018-05-02 11:50 | P.BOP ---
- Preoperative Diagnosis (1) Osteomyelitis of toe of right foot (2) Diabetic foot infection - Postoperative Diagnosis (1) Diabetic foot infection (2) Osteomyelitis of toe of right foot Date of procedure: 05/02/18 Procedure: 1. Amputation distal right hallux with debridement of necrotic bone and soft tissue Right distal medial hallux with necrotic tissue plantar medial aspect. No stefanie purulence, but necrotic tissue did communicate directly to bone of distal phalanx with necrosis noted of bone in the area. plantar fat pad necrosis to digit noted and debrided excisionally with #15 blade and rongeur down to bleeding tissue and minimal bleeding noted. Culture taken. Distal right hallux sent to pathology. Irrigation with normal saline and attempt at primary closure with 2-0 nylon suture. No tourniquet utilized. 10mL 0.25% marcaine plain No complications. Disposition: Await culture results. Vascular consult pending. Continue IV antibiotics. Will continue to monitor to see if more proximal amputation/debridement required. At this time, appears as though all infectious tissue was removed entirely, but viability of toe still in question due to minimal bleeding intraoperatively. Weightbearing as tolerated in surgical shoe right foot. Anesthesia: MAC, local (10mL 0.25% marcaine plain) Surgeon: Marisel Marley DPM Kayak Maker: staff Estimated blood loss (mL): 5 Pathology: other (1. culture right hallux, 2. right distal hallux to pathology) Condition: stable Disposition: PACU
--- NOTE | 2018-05-02 12:19 | XR ---
EXAM DATE: 05/02/2018 12:14 PM EST AGE/SEX: 77 years / Female INDICATIONS: Post op distal 1st digit amputation. CLINICAL DATA: This is the patient's initial encounter. Patient reports that signs and symptoms have been present for 1 day and indicates a pain score of 0/10. MEDICAL/SURGICAL HISTORY: . Hypertension. Diabetes. None. COMPARISON: [facility] [place], MR FOOT RIGHT W & W/O CONTRAST, 05/01/2018. . FINDINGS: The patient is status post amputation of the first digit distal to the proximal phalanx. There is sub cutaneous air and soft tissue swelling at the stump. There is osteoarthritis of the first MTP joint. Vascular calcifications are seen. Plantar and posterior calcaneal enthesophytes.. CONCLUSION: Post surgical changes are identified first digit. Electronically signed by: Toby Gordon MD 05/02/2018 12:18 PM EST
[2018-05-02] MEDS: Senna/Docusate Sodium 8.6/50 MG Tablet PO SCH ×4 (13:38→20:36)
[2018-05-02] MEDS: Ibuprofen 600 MG Tablet PO PRN (15:21)
[2018-05-02] MEDS ORDERED: ALPRAZolam 0.25 MG Tablet PO PRN (16:23)
[2018-05-02] MEDS ORDERED: Ibuprofen 200 MG Tablet PO PRN (16:29)
[2018-05-02] MEDS: Ibuprofen 600 MG Tablet PO SCH ×2 (18:05→23:23)
[2018-05-02] MEDS: Metoprolol Tartrate 25 MG Tablet PO SCH (20:26)
[2018-05-02] MEDS: Insulin Detemir Inj 1,000 UNIT/10 ML Vial SQ SCH (20:36)
[2018-05-03] MEDS: KCL 20 mEq/NACL 0.45% Inj 1,000 ML IV.CONT SCH ×2 (03:11→04:28)
[2018-05-03] MEDS: Piperacil/Tazo 3.375 GM Premix 50 ML IV.SIG SCH ×5 (04:27→21:56)
[2018-05-03] MEDS: Ibuprofen 600 MG Tablet PO SCH ×4 (05:29→23:24)
[2018-05-03] MEDS: Vancomycin Inj 1,000 MG in Sodium Chlor 0.9% Inj 250 ML IV.SIG SCH ×2 (06:16→17:48)
[2018-05-03] MEDS: Senna/Docusate Sodium 8.6/50 MG Tablet PO SCH ×4 (08:25→20:40)
[2018-05-03] MEDS: Metoprolol Tartrate 25 MG Tablet PO SCH ×2 (08:25→20:37)
[2018-05-03] MEDS: Insulin Detemir Inj 1,000 UNIT/10 ML Vial SQ SCH ×2 (08:26→20:39)
[2018-05-03] MEDS: Insulin NovoLOG Aspart Correctional Sugar Inj SQ SCH ×4 (08:26→20:39)
--- NOTE | 2018-05-03 08:57 | P.CONVS ---
History of Present Illness Service: Vascular Surgery Consult date: 05/03/18 Requesting Physician: Marisel Marley Reason for Consult: PAD Primary Care Provider: Jose Manuel Doyle Chief Complaint: 77 yo female with R hallux osteo, s/p amputation History of Present Illness: 77 yo female with DM and R foot TL, POD#1 s/p amputation for acute osteo with streaking erythema and leukocytosis, resolving. Pt notes wound on foot started weeks ago and worsened over past 10 days, presented with acute osteo + hyperglycemia, + chills Review of Systems Constitutional: Reports chills PMFSH - History History Provided By: Patient - Medical History Medical History: Medical History (Last Reviewed 05/03/18 @ 08:53 by Bhargav Ames MD) Amputated toe of right foot Aneurysm Diabetes Hypertension - Social History I have reviewed the patient's Social History: Yes - Tobacco History Second Hand Smoke Exposure: No Tobacco Use In Past 30 Days: No Smoking Status: Never smoker - Alcohol History How Often Do You Have a Drink Containing Alcohol: Never - Substance Use History Substance History: No History of Abuse - Travel History Recent Travel in the [place] Within the Last 8 Weeks: No Recent Travel Out of the Country Within the Last 8 Weeks: No - Immunization History Tetanus Immunization: Unsure Hx Influenza Vaccine This Season: Yes Medications and Allergies Active Medications: Active Medications Al Hydroxide/Mg Hydroxide (Milk Of Magnesia Liq) 30 ml PO Q12H PRN PRN Reason: Mild Constipation Al Hydroxide/Mg Hydroxide (Milk Of Magnesia Liq) 30 ml PO Q12H PRN PRN Reason: Mild Constipation Alprazolam (Xanax) 0.25 mg PO Q8H PRN PRN Reason: ANXIETY AND/OR AGITATION Atorvastatin Calcium (Lipitor) 10 mg PO DAILY [facility] Last Admin: 05/03/18 08:25 Dose: 10 mg Bisacodyl (Dulcolax Supp) 10 mg RECTAL DAILY PRN PRN Reason: SEVERE CONSITIPATION Clonidine HCl (Catapres) 0.2 mg PO Q6H PRN PRN Reason: SBP>160, DBP>90 Dextrose (D50w Vial) 50 ml IV.PUSH UNSCH PRN PRN Reason: PER HYPOGLYCEMIA PROTOCOL Enalaprilat (Vasotec Inj) 1.5 mg IV.PUSH Q6H PRN PRN Reason: SYS BP GREATER THAN 160 MMHG Glucagon (Glucagon Inj) 1 mg OTHER PRN PRN PRN Reason: for Hypoglycemia Protocol Piperacillin/Tazobactam/Dextrose (Zosyn 3.375 Gm Premix) 50 mls @ 100 mls/hr IV.SIG Q6H [facility] Last Infusion: 05/03/18 05:00 Dose: Infused Vancomycin HCl 1,000 mg/ (Sodium Chloride) 250 mls @ 250 mls/hr IV.SIG Q12H [facility] Last Infusion: 05/03/18 07:28 Dose: Infused Sodium Chloride (Ns Inj) 500 mls @ 30 mls/hr IV.SIG .Q10H [facility] Last Admin: 05/02/18 13:38 Dose: Not Given Ibuprofen (Motrin) 600 mg PO Q6HR PRN PRN Reason: temp above 100f Last Admin: 05/02/18 15:21 Dose: 600 mg Ibuprofen (Motrin) 600 mg PO Q6HR [facility] Last Admin: 05/03/18 05:29 Dose: 600 mg Insulin Aspart (Novolog Insulin Correctional Sugar Inj) 0 unit SQ ACHS [facility]; Protocol Last Admin: 05/03/18 08:26 Dose: 7 unit Insulin Detemir (Levemir Inj) 15 unit SQ BID [facility] Last Admin: 05/03/18 08:26 Dose: 15 unit Lactulose (Lactulose Liq) 30 ml PO DAILY PRN PRN Reason: SEVERE CONSITIPATION Metoprolol Tartrate (Lopressor) 12.5 mg PO BID [facility] Last Admin: 05/03/18 08:25 Dose: 12.5 mg Miscellaneous Information (Misc Nursing Information) 0 each OTHER UNSCH PRN PRN Reason: SEE LABEL COMMENTS Stop: 05/03/18 11:37 Ondansetron HCl (Zofran Inj) 4 mg IV.PUSH Q6H PRN PRN Reason: NAUSEA OR VOMITING Oxycodone HCl (Roxicodone) 5 mg PO Q6H PRN PRN Reason: pain scale 6-10, (Chlorthalidone [ Chlorthalidone] 25 Mg) 1 each PO DAILY [facility] Senna/Docusate Sodium (Maribel-Colace) 1 tab PO BID [facility] Last Admin: 05/03/18 08:25 Dose: 1 tab Senna/Docusate Sodium (Maribel-Colace) 1 tab PO BID [facility] Last Admin: 05/03/18 08:26 Dose: Not Given Sennosides (Senokot) 17.2 mg PO Q12H PRN PRN Reason: Moderate Constipation Allergies Allergy/AdvReac Type Severity Reaction Status Date / Time adhesive Allergy Unknown Rash Unverified 05/01/18 15:33 Sulfa (Sulfonamide Allergy Unknown Hives Unverified 05/01/18 15:33 Antibiotics) acetaminophen [From Lortab] Allergy Hives Verified 05/01/18 15:33 hydrocodone [From Lortab] Allergy Hives Verified 05/01/18 15:33 lovastatin, amlodipine Allergy Intermediate Hives Uncoded 05/01/18 15:33 besylate, alcohol (drinking) PEPPERS Allergy Unknown Anaphylaxis Uncoded 05/01/18 15:33 Home Medications Medication Instructions Recorded Confirmed Type chlorthalidone 25 mg PO DAILY 05/01/18 05/01/18 History insulin aspart U-100 [Novolog 1 - 10 sliding scale dose SUBCUT 05/01/18 History U-100 Insulin aspart] TIDAC insulin detemir U-100 [Levemir 30 unit SUBCUT QPM 05/01/18 05/01/18 History U-100 Insulin] insulin detemir U-100 [Levemir 45 unit SUBCUT QAM 05/01/18 05/01/18 History U-100 Insulin] metoprolol tartrate 12.5 mg PO BID 05/01/18 05/01/18 History rosuvastatin [Crestor] 5 mg PO DAILY 05/01/18 05/01/18 History Physical Exam Vital Signs / I&O: Vital Signs 05/02/18 11:35 05/02/18 11:45 05/02/18 12:00 Temperature 97.6 F 97.7 F Pulse Rate 77 74 80 Respiratory Rate 14 15 20 Blood Pressure 117/53 L 111/60 138/65 Pulse Oximetry 94 L 100 97 05/02/18 12:38 05/02/18 16:00 05/02/18 20:00 Temperature 97.8 F 98.1 F 98.3 F Pulse Rate 83 89 81 Respiratory Rate 20 20 18 Blood Pressure 161/73 H 148/67 H 120/58 L Pulse Oximetry 97 98 95 05/02/18 23:59 05/03/18 00:00 05/03/18 04:00 Temperature 97.9 F 98.2 F Pulse Rate 73 64 Respiratory Rate 20 17 16 Blood Pressure 111/59 L 122/60 Pulse Oximetry 97 96 05/03/18 06:16 Temperature Pulse Rate Respiratory Rate 20 Blood Pressure Pulse Oximetry Intake & Output 05/02/18 05/03/18 05/03/18 18:59 06:59 18:59 Intake Total 350 / 350 650 / 650 250 / 250 Output Total 3 / 3 Balance 347 / 347 650 / 650 250 / 250 Weight 82.6 kg Intake: IV 350 / 350 350 / 350 250 / 250 Zosyn 3.375 GM Premix 50 ML @ 100 / 100 100 / 100 100 mls/hr IV.SIG Q6H [facility] Rx#: [id number] Vancomycin Inj 1,000 MG In NS 250 / 250 250 / 250 250 / 250 Inj 250 ML @ 250 mls/hr IV.SIG Q12H [facility]ACHEL[facility] Rx#:[id number] Oral 300 / 300 Output: Urine 3 / 3 Other: # Voids 2 # Bowel Movements 1 Neuro: alert, acts younger than stated age SEPULVEDA HEENT: NC/AT Neck: no JVD Heart: reg rate Lungs: nonlabored breathing Vascular: nonpalpable femoral , popliteal R pedal pulses Laboratory Results - last 24 hr 05/02/18 05/02/18 05/02/18 11:46 17:28 20:34 POC Glucose 235 H 354 H 269 H 05/03/18 05/03/18 03:17 08:21 POC Glucose 246 H 231 H Microbiology 05/01/18 16:20 Aerobic Blood Culture - Preliminary Blood - Peripheral Group B beta Strep Anaerobic Blood Culture - Preliminary gram positive cocci 05/01/18 16:25 Aerobic Blood Culture - Preliminary Blood - Peripheral gram positive cocci Anaerobic Blood Culture - Preliminary gram positive cocci Impressions Chest X-Ray 05/01/18 15:48 CONCLUSION: No acute intrathoracic disease. Foot X-Ray 05/01/18 15:48 CONCLUSION: No acute fracture or joint dislocation. Primary degenerative changes are noted throughout the foot. Knee X-Ray 05/01/18 16:22 CONCLUSION: Advanced arthropathy with moderate joint effusion No evidence of acute fracture. Foot MRI 05/01/18 18:30 CONCLUSION: 1. Soft tissue swelling and ulceration distally of the great toe. There is suspected osteomyelitis of the distal phalanx, mostly the distal half of the bone. No osteomyelitis of the great toe proximal phalanx or other bones of the right foot. 2. No abscess. Foot X-Ray 05/02/18 00:00 CONCLUSION: Post surgical changes are identified first digit. Assessment and Plan - Assessment (1) Osteomyelitis of toe of right foot Code(s): M86.9 - Osteomyelitis, unspecified Status: Acute - Plan R LE PAD and tissue loss, now s/p toe amputation 1. Because of lack of appreciated femoral pulses, I suspect aorto-iliac disease and have ordered CTA runoff 2. ABIs pending 3. Needs ASA if ok from medical service - no contraindication from vascular standpoint even w anticipated procedures 4. On statin 5. A1c pending will follow closely. Bhargav Ames MD FASC FSVS RPVI welfare interviewer [facility] - Heart and Vascular Surgery at [facility] [phone]
[2018-05-03] MEDS ORDERED: CHLORTHALIDONE 25 MG PO SCH (09:00)
[2018-05-03 13:15] LABS: Hemoglobin A1c 10.2 % (4.3-6.0)
--- NOTE | 2018-05-03 13:18 | CT ---
EXAM DATE: 05/03/2018 1:01 PM EST AGE/SEX: 77 years / Female INDICATIONS: Peripheral artery disease CLINICAL DATA: This is the patient's initial encounter. Patient reports that signs and symptoms have been present for 2 days and indicates a pain score of 3/10. MEDICAL/SURGICAL HISTORY: Hypertension. Diabetes. . Amputated Right Toe RADIATION DOSE: 5.15 CTDI (mGy) COMPARISON: No prior exams available for comparison. TECHNIQUE: Volumetric scanning was performed using a multi-row detector CT scanner during bolus infu apurva of 100ML ml Omnipaque 350 (iohexol) nonionic water-soluble contrast as a single exam dose. Th e data was post processed with a variety of visualization algorithms including full volume maximum in tensity projection, multi-planar sliding thin slab reformation, curved planar reformation, and surfac e rendering techniques. Using automated exposure control and adjustment of the mA and/or kV accordin g to patient size, radiation dose was kept as low as reasonably achievable to obtain optimal diagnost ic quality images. DICOM format image data is available electronically for review and comparison. FINDINGS: Lung bases demonstrate minimal atelectasis and scarring. Mild fatty liver. Spleen, adrenals, kidneys unremarkable. Fatty pancreas. Previous cholecystectomy. N o bowel obstruction or free air. Markedly atherosclerotic abdominal aorta without aneurysm or dissection. Celiac, superior mesenteric and renal arteries appear patent. On the left side the external and internal iliac arteries are patent proximally. There is previous st ent placement in the proximal superficial femoral artery. Multiple mild stenoses present in the popliteal artery and irregular atherosclerotic narrowing presen t below the trifurcation with relatively poor 1-2 vessel runoff on the left side. On the right side the external and internal iliac artery are patent and common femoral artery is biggs nt. There is previous stent placement in the proximal superficial femoral artery on the right. Poplit eal artery is irregularly atherosclerotic with multiple mild stenoses. There is atherosclerotic disea se below the trifurcation multiple mild irregular stenoses and relatively poor 1-2 vessel runoff on t he right as well. CONCLUSION: 1. Previous stent placement in the proximal superficial femoral arteries bilaterally. No focal discr ete high-grade stenosis. Poor to moderate 1-2 vessel runoff bilaterally. See above discussion. No ane urysm or dissection. Electronically signed by: Brandon Parson MD 05/03/2018 1:16 PM EST
--- NOTE | 2018-05-03 14:09 | P.PNIM ---
Subjective Interval history: Pt with NO new clinical complaints. Pain is controlled. Pt is tolerating PO intake without n/v/d. Physical Exam Vital signs: Last Vital Signs Temp 97.6 F 05/03/18 12:00 Pulse 66 05/03/18 12:00 Resp 20 05/03/18 12:00 BP 117/61 05/03/18 12:00 Pulse Ox 93 L 05/03/18 12:00 Narrative: GENERAL: This is a obese 77-year-old female, well-developed patient, in no apparent distress. CARDIOVASCULAR: Regular rate and rhythm RESPIRATORY: Clear to auscultation. Breath sounds equal bilaterally. GASTROINTESTINAL: Abdomen soft, non-tender, nondistended. Normal active bowel sounds MUSCULOSKELETAL: Postop dressing dry and intact NEURO: Alert & Oriented. Moves all ext x4 EXT: RLE is bandaged, C/D/I Results Labs CBC & Chem 7: 05/06/18 06:43 05/06/18 06:43 Assessment and Plan Assessment (1) Osteomyelitis of toe of right foot: Code(s): M86.9 - Osteomyelitis, unspecified Status: Acute Plan This a 77-year-old female patient with past medical history which includes chronic kidney disease stage II, diabetes mellitus type 2, diabetic retinopathy , depression, and hypertension. Patient presented to the ER yesterday due to nonhealing wound right great toe, with fevers and generally feeling unwell. Patient reports that she has had a nonhealing wound on the right great toe for approximately 3 weeks. She stepped on a piece of glass. Patient reports for the past week it is been getting progressively worse. Patient states that it has become more red, swollen, and painful over the past week. Redness began traveling up the foot and ankle from that area. She running a fever and generally feeling unwell yesterday therefore she proceeded to the emergency department for further evaluation and treatment. Patient reports she has not yet seen outpatient podiatry or PCP for treatment of the wound. Patient denies nausea vomiting diarrhea constipation shortness of breath or chest pain. MRI showed findings consistent with osteomyelitis to distal phalanx of hallux. She does not see a jig box operator as outpatient currently. Diabetic foot infection Osteomyelitis Chest X-Ray 05/01/18No acute intrathoracic disease. Foot X-Ray 05/01/18No acute fracture or joint dislocation. Primary degenerative changes are noted throughout the foot. Knee X-Ray 05/01/18 Advanced arthropathy with moderate joint effusion No evidence of acute fracture. Foot MRI 05/01/18 1. Soft tissue swelling and ulceration distally of the great toe. There is suspected osteomyelitis of the distal phalanx, mostly the distal half of the bone. No osteomyelitis of the great toe proximal phalanx or other bones of the right foot. 2. No abscess. CTA with runoff (05/03/18) Previous stent placement in the proximal superficial femoral arteries bilaterally. No focal discrete high-grade stenosis. Poor to moderate 1-2 vessel runoff bilaterally. See above discussion. No aneurysm or dissection.Electronically signed by: Brandon Parson MD 05/03/2018 1:16 PM EST - Case d/w Vascular Surgery, Dr. Ames (05/03). Likely angioplasty 05/05/18 - Pt underwent Amputation distal right hallux with debridement of necrotic bone and soft tissue performed by Dr. Wooten (05/02/18) - pathology (05/02) pending - blood cultures (05/01/18) --> group B strep - intraoperative culture (05/02) --> group B strep, Gram negative rods - await ID consult - Zosyn (05/01 - present) - Vancomycin (05/02 - present) - ibuprofen and Roxicodone as needed for pain. Pt allergic to tylenol(?) - DVT prophylaxis - supportive care Diabetes mellitus type 2 At home patient takes Levemir 45 mg subcu every morning and Levemir 30 mg subcu every afternoon Accu-Cheks AC at bedtime with sliding scale insulin coverage - HgA1C 10.2 (05/02) which is c/w prior outpt measurements - start amaryl 2mg BID - start metformin 500mg soon & titrate. Pt had contrast study 05/02 and now with likely angioplasty. - continue Levemir 15 units BID Hypertension Continue patient's home metoprolol 12.5 mg p.o. twice daily Hyperlipidemia Continue patient's home Crestor 5 mg p.o. daily Chronic kidney disease stage II Avoid nephrotoxic agents monitor renal function Ds Progress Note: Quality VTE Deep Vein Thrombosis/Pulmonary Embolism Present on Admission: No
[2018-05-03] MEDS: Aspirin 325 MG Tablet PO SCH (15:26)
--- NOTE | 2018-05-03 17:28 | P.CONID ---
History of Present Illness Service: Infectious Disease Consult date: 05/03/18 Requesting Physician: Dario Cabral Reason for Consult: Evaluation and Mment of Right great toe osteomyelitis Primary Care Provider: Jose Manuel Doyle Chief Complaint: 77 yo female with R hallux osteo, s/p amputation History of Present Illness: Ms. Cisneros is a 77-year-old female with past medical history significant for chronic kidney disease stage II, diabetes type 2, diabetic retinopathy, depression and hypertension. Patient reports that she is fairly independent of activities of daily living and lives by herself at home. It was very difficult to obtain proper chronological history from the patient as she kept interrupting every sentence I spoke. I was able to confirm facts when patient would let me. Patient presented to the emergency room yesterday due to a nonhealing wound in the right great toe with fevers and generalized feeling of unwellness. Patient reports that she has a non-healing wound on the great toe for approximately 3 weeks when she initially stepped on a piece of glass. Patient reports that she loves to decorate her inside and outside of her home and may have stepped on a piece of glass. Patient reports that this became more red swollen and painful over the past week. The redness began to travel up the foot and ankle from that area. This a 77-year-old female patient with past medical history which includes chronic kidney disease stage II, diabetes mellitus type 2, diabetic retinopathy , depression, and hypertension. Patient presented to the ER yesterday due to nonhealing wound right great toe, with fevers and generally feeling unwell. Patient reports that she has had a nonhealing wound on the right great toe for approximately 3 weeks. She reports stepped on a piece of glass. Patient reports for the past week it is been getting progressively worse. Patient states that it has become more red, swollen, and painful over the past week. Redness began traveling up the foot and ankle from that area. She running a fever and generally feeling unwell yesterday therefore she proceeded to the emergency department for further evaluation and treatment. Patient reports she has not yet seen outpatient podiatry or PCP for treatment of the wound. Patient denies nausea vomiting diarrhea constipation shortness of breath or chest pain. MRI showed findings consistent with osteomyelitis to distal phalanx of hallux. She does not see a patient care associate as outpatient currently. PMH: chronic kidney disease stage II, diabetes mellitus type 2, diabetic retinopathy , depression, and hypertension PSxH: Cataract surgery, left scopic cholecystectomy, colonoscopy, foot surgery, Iridotomy by YAG laser FMH: CAD, thyroid disorder, breast cancer, colon cancer, diabetes mellitus and hypertension Social history: patient has been approximately 5 years ago she now lives alone in Denies EtOH use Denies tobacco use now or in the past [facility] - History History Provided By: Patient - Medical History Medical History: Medical History (Last Reviewed 05/03/18 @ 08:53 by Bhargav Ames MD) Amputated toe of right foot Aneurysm Diabetes Hypertension - Tobacco History Second Hand Smoke Exposure: No Tobacco Use In Past 30 Days: No Smoking Status: Never smoker - Alcohol History How Often Do You Have a Drink Containing Alcohol: Never - Substance Use History Substance History: No History of Abuse - Travel History Recent Travel in the [place] Within the Last 8 Weeks: No Recent Travel Out of the Country Within the Last 8 Weeks: No - Immunization History Tetanus Immunization: Unsure Hx Influenza Vaccine This Season: Yes Medications and Allergies Active Medications: Active Medications Al Hydroxide/Mg Hydroxide (Milk Of Magnesia Liq) 30 ml PO Q12H PRN PRN Reason: Mild Constipation Al Hydroxide/Mg Hydroxide (Milk Of Magnesia Liq) 30 ml PO Q12H PRN PRN Reason: Mild Constipation Alprazolam (Xanax) 0.25 mg PO Q8H PRN PRN Reason: ANXIETY AND/OR AGITATION Aspirin (Aspirin) 325 mg PO DAILY [facility] Last Admin: 05/03/18 15:26 Dose: 325 mg Atorvastatin Calcium (Lipitor) 10 mg PO DAILY [facility] Last Admin: 05/03/18 08:25 Dose: 10 mg Bisacodyl (Dulcolax Supp) 10 mg RECTAL DAILY PRN PRN Reason: SEVERE CONSITIPATION Clonidine HCl (Catapres) 0.2 mg PO Q6H PRN PRN Reason: SBP>160, DBP>90 Dextrose (D50w Vial) 50 ml IV.PUSH UNSCH PRN PRN Reason: PER HYPOGLYCEMIA PROTOCOL Enalaprilat (Vasotec Inj) 1.5 mg IV.PUSH Q6H PRN PRN Reason: SYS BP GREATER THAN 160 MMHG Glimepiride (Amaryl) 2 mg PO BIDAC [facility] Glucagon (Glucagon Inj) 1 mg OTHER PRN PRN PRN Reason: for Hypoglycemia Protocol Piperacillin/Tazobactam/Dextrose (Zosyn 3.375 Gm Premix) 50 mls @ 100 mls/hr IV.SIG Q6H [facility] Last Admin: 05/03/18 15:26 Dose: 100 mls/hr Vancomycin HCl 1,000 mg/ (Sodium Chloride) 250 mls @ 250 mls/hr IV.SIG Q12H [facility] Last Infusion: 05/03/18 07:28 Dose: Infused Sodium Chloride (Ns Inj) 500 mls @ 30 mls/hr IV.SIG .Q10H [facility] Last Admin: 05/02/18 13:38 Dose: Not Given Ibuprofen (Motrin) 600 mg PO Q6HR PRN PRN Reason: temp above 100f Last Admin: 05/02/18 15:21 Dose: 600 mg Ibuprofen (Motrin) 600 mg PO Q6HR [facility] Last Admin: 05/03/18 11:07 Dose: 600 mg Insulin Aspart (Novolog Insulin Correctional Sugar Inj) 0 unit SQ ACHS [facility]; Protocol Last Admin: 05/03/18 11:55 Dose: Not Given Insulin Detemir (Levemir Inj) 15 unit SQ BID [facility] Last Admin: 05/03/18 08:26 Dose: 15 unit Lactulose (Lactulose Liq) 30 ml PO DAILY PRN PRN Reason: SEVERE CONSITIPATION Metoprolol Tartrate (Lopressor) 12.5 mg PO BID [facility] Last Admin: 05/03/18 08:25 Dose: 12.5 mg Ondansetron HCl (Zofran Inj) 4 mg IV.PUSH Q6H PRN PRN Reason: NAUSEA OR VOMITING Oxycodone HCl (Roxicodone) 5 mg PO Q6H PRN PRN Reason: pain scale 6-10, (Chlorthalidone [ Chlorthalidone] 25 Mg) 1 each PO DAILY [facility] Senna/Docusate Sodium (Maribel-Colace) 1 tab PO BID [facility] Last Admin: 05/03/18 08:25 Dose: 1 tab Senna/Docusate Sodium (Maribel-Colace) 1 tab PO BID [facility] Last Admin: 05/03/18 08:26 Dose: Not Given Sennosides (Senokot) 17.2 mg PO Q12H PRN PRN Reason: Moderate Constipation Allergies Allergy/AdvReac Type Severity Reaction Status Date / Time adhesive Allergy Unknown Rash Unverified 05/01/18 15:33 Sulfa (Sulfonamide Allergy Unknown Hives Unverified 05/01/18 15:33 Antibiotics) acetaminophen [From Lortab] Allergy Hives Verified 05/01/18 15:33 hydrocodone [From Lortab] Allergy Hives Verified 05/01/18 15:33 lovastatin, amlodipine Allergy Intermediate Hives Uncoded 05/01/18 15:33 besylate, alcohol (drinking) PEPPERS Allergy Unknown Anaphylaxis Uncoded 05/01/18 15:33 Home Medications Medication Instructions Recorded Confirmed Type chlorthalidone 25 mg PO DAILY 05/01/18 05/01/18 History insulin aspart U-100 [Novolog 1 - 10 sliding scale dose SUBCUT 05/01/18 History U-100 Insulin aspart] TIDAC insulin detemir U-100 [Levemir 30 unit SUBCUT QPM 05/01/18 05/01/18 History U-100 Insulin] insulin detemir U-100 [Levemir 45 unit SUBCUT QAM 05/01/18 05/01/18 History U-100 Insulin] metoprolol tartrate 12.5 mg PO BID 05/01/18 05/01/18 History rosuvastatin [Crestor] 5 mg PO DAILY 05/01/18 05/01/18 History Exam Vital signs: Vital Signs 05/02/18 20:00 05/02/18 23:59 05/03/18 00:00 Temperature 98.3 F 97.9 F Pulse Rate 81 73 Respiratory Rate 18 20 17 Blood Pressure 120/58 L 111/59 L Pulse Oximetry 95 97 05/03/18 04:00 05/03/18 06:16 05/03/18 08:00 Temperature 98.2 F 97.6 F Pulse Rate 64 66 Respiratory Rate 16 20 20 Blood Pressure 122/60 152/66 H Pulse Oximetry 96 98 05/03/18 12:00 05/03/18 15:51 Temperature 97.6 F 97.8 F Pulse Rate 66 75 Respiratory Rate 20 20 Blood Pressure 117/61 139/71 Pulse Oximetry 93 L 99 Intake & Output 05/02/18 05/03/18 05/03/18 18:59 06:59 18:59 Intake Total 350 / 350 650 / 650 1006 / 1006 Output Total 3 / 3 Balance 347 / 347 650 / 650 1006 / 1006 Weight 82.6 kg Intake: IV 350 / 350 350 / 350 1006 / 1006 Potassium Chlor 20 mEq/NACL 0. 706 / 706 45% Inj 1,000 ML @ 84 mls/hr IV .CONT .[id number] [facility] Rx#:[id number] Zosyn 3.375 GM Premix 50 ML @ 100 / 100 100 / 100 50 / 50 100 mls/hr IV.SIG Q6H [facility] Rx#: [id number] Vancomycin Inj 1,000 MG In NS 250 / 250 250 / 250 250 / 250 Inj 250 ML @ 250 mls/hr IV.SIG Q12H [facility] Rx#:[id number] Oral 300 / 300 Output: Urine 3 / 3 Other: # Voids 2 Date of Last Bowel Movement 05/02/18 # Bowel Movements 1 Narrative: GENERAL: Well-nourished well-developed, not in acute distress SKIN: Cool and dry, no generalized rash HEAD: Atraumatic. Normocephalic. No temporal or scalp tenderness. EYES: Pupils equal round and reactive. Scleral icterus. No injection or drainage. No petechia ENT: Nothing abnormal detected NECK: Trachea midline. Supple, nontender, no meningeal signs. CARDIOVASCULAR: HS audible. RESPIRATORY: Clear to auscultation bilaterally. GASTROINTESTINAL: Abdomen soft nontender. MUSCULOSKELETAL: Right foot in post op dressing. NEUROLOGICAL: Alert oriented 3. Nonfocal. Psych cooperative IV line sites ok. Results - Labs CBC & Chem 7: 05/02/18 05:47 05/02/18 05:47 Labs: Laboratory Results - last 24 hr 05/02/18 05/02/18 05/03/18 17:28 20:34 03:17 POC Glucose 354 H 269 H 246 H Hemoglobin A1c 05/03/18 05/03/18 08:21 11:43 POC Glucose 231 H Hemoglobin A1c 10.2 H - Imaging Impressions Aorta w/Runoff CTA 05/03/18 00:00 CONCLUSION: 1. Previous stent placement in the proximal superficial femoral arteries bilaterally. No focal discrete high-grade stenosis. Poor to moderate 1-2 vessel runoff bilaterally. See above discussion. No aneurysm or dissection. Assessment and Plan - Plan Sepsis present on admission (fever, leucocytosis and foot infection) Gram positive bacteremia (Strep Grp B) likely secondary to foot infection. Right great toe osteomyelitis atleast 3 weeks duration. DM2 with DM retinopathy. PVD Recs: Continue Zosyn IV Continue Vanco IV (target 15-20) to cover possible resistant strep. Follow cultures Follow clinical course Would recommend repeating blood culture if negative at 72 hours ok to proceed with Vascular procedure. saul Kirby. saul patient.
[2018-05-03] MEDS ORDERED: Vancomycin Consult Pharmacy OTHER PRN (17:42)
[2018-05-03] MEDS ORDERED: Vancomycin Consult Pharmacy 1 EACH OTHER SCH (17:45)
[2018-05-03] MEDS: Glimepiride 2 MG Tablet PO SCH (18:51)
--- NOTE | 2018-05-03 20:35 | P.PNPOD ---
Subjective Interval history: s/p distal amputation/debridement of bone right distal hallux 05/02/18 Dr Marley Physical Exam Vital signs: Vital Signs 05/02/18 23:59 05/03/18 00:00 05/03/18 04:00 Temperature 97.9 F 98.2 F Pulse Rate 73 64 Respiratory Rate 20 17 16 Blood Pressure 111/59 L 122/60 Pulse Oximetry 97 96 05/03/18 06:16 05/03/18 08:00 05/03/18 12:00 Temperature 97.6 F 97.6 F Pulse Rate 66 66 Respiratory Rate 20 20 20 Blood Pressure 152/66 H 117/61 Pulse Oximetry 98 93 L 05/03/18 15:51 05/03/18 20:00 Temperature 97.8 F 98.2 F Pulse Rate 75 80 Respiratory Rate 20 18 Blood Pressure 139/71 143/64 H Pulse Oximetry 99 96 Intake & Output 05/03/18 05/03/18 05/04/18 06:59 18:59 06:59 Intake Total 650 / 650 1306 / 1306 Balance 650 / 650 1306 / 1306 Weight 82.6 kg Intake: IV 350 / 350 1306 / 1306 Potassium Chlor 20 mEq/NACL 0. 706 / 706 45% Inj 1,000 ML @ 84 mls/hr IV .CONT .[id number] [facility] Rx#:[id number] Zosyn 3.375 GM Premix 50 ML @ 100 / 100 100 / 100 100 mls/hr IV.SIG Q6H [facility] Rx#: [id number] Vancomycin Inj 1,000 MG In NS 250 / 250 500 / 500 Inj 250 ML @ 250 mls/hr IV.SIG Q12H [facility] Rx#:[id number] Oral 300 / 300 Other: # Voids 2 Date of Last Bowel Movement 05/02/18 # Bowel Movements 1 Narrative: dressing clean, dry, intact right foot. surgical shoe is bedside. pain controlled Medications and Allergies Active Medications: Active Medications Al Hydroxide/Mg Hydroxide (Milk Of Magnesia Liq) 30 ml PO Q12H PRN PRN Reason: Mild Constipation Al Hydroxide/Mg Hydroxide (Milk Of Magnesia Liq) 30 ml PO Q12H PRN PRN Reason: Mild Constipation Alprazolam (Xanax) 0.25 mg PO Q8H PRN PRN Reason: ANXIETY AND/OR AGITATION Aspirin (Aspirin) 325 mg PO DAILY [facility] Last Admin: 05/03/18 15:26 Dose: 325 mg Atorvastatin Calcium (Lipitor) 10 mg PO DAILY [facility] Last Admin: 05/03/18 08:25 Dose: 10 mg Bisacodyl (Dulcolax Supp) 10 mg RECTAL DAILY PRN PRN Reason: SEVERE CONSITIPATION Clonidine HCl (Catapres) 0.2 mg PO Q6H PRN PRN Reason: SBP>160, DBP>90 Dextrose (D50w Vial) 50 ml IV.PUSH UNSCH PRN PRN Reason: PER HYPOGLYCEMIA PROTOCOL Enalaprilat (Vasotec Inj) 1.5 mg IV.PUSH Q6H PRN PRN Reason: SYS BP GREATER THAN 160 MMHG Glimepiride (Amaryl) 2 mg PO BIDAC [facility] Last Admin: 05/03/18 18:51 Dose: Not Given Glucagon (Glucagon Inj) 1 mg OTHER PRN PRN PRN Reason: for Hypoglycemia Protocol Piperacillin/Tazobactam/Dextrose (Zosyn 3.375 Gm Premix) 50 mls @ 100 mls/hr IV.SIG Q6H [facility] Last Infusion: 05/03/18 18:52 Dose: Infused Vancomycin HCl 1,000 mg/ (Sodium Chloride) 250 mls @ 250 mls/hr IV.SIG Q12H [facility] Last Infusion: 05/03/18 18:52 Dose: Infused Sodium Chloride (Ns Inj) 500 mls @ 30 mls/hr IV.SIG .Q10H [facility] Last Admin: 05/02/18 13:38 Dose: Not Given Pharmacy Profile Note (Vancomycin Consult Pharmacy) 0 mls @ 0 mls/hr OTHER UNSCH [facility] Ibuprofen (Motrin) 600 mg PO Q6HR PRN PRN Reason: temp above 100f Last Admin: 05/02/18 15:21 Dose: 600 mg Ibuprofen (Motrin) 600 mg PO Q6HR [facility] Last Admin: 05/03/18 17:56 Dose: 600 mg Insulin Aspart (Novolog Insulin Correctional Sugar Inj) 0 unit SQ ACHS [facility]; Protocol Last Admin: 05/03/18 17:56 Dose: 4 unit Insulin Detemir (Levemir Inj) 15 unit SQ BID [facility] Last Admin: 05/03/18 08:26 Dose: 15 unit Lactulose (Lactulose Liq) 30 ml PO DAILY PRN PRN Reason: SEVERE CONSITIPATION Metoprolol Tartrate (Lopressor) 12.5 mg PO BID [facility] Last Admin: 05/03/18 08:25 Dose: 12.5 mg Miscellaneous Information ([facility] Ordered Lab Info) 1 each OTHER ONCE [facility] Ondansetron HCl (Zofran Inj) 4 mg IV.PUSH Q6H PRN PRN Reason: NAUSEA OR VOMITING Oxycodone HCl (Roxicodone) 5 mg PO Q6H PRN PRN Reason: pain scale 6-10, (Chlorthalidone [ Chlorthalidone] 25 Mg) 1 each PO DAILY [facility] Senna/Docusate Sodium (Maribel-Colace) 1 tab PO BID [facility] Last Admin: 05/03/18 08:25 Dose: 1 tab Senna/Docusate Sodium (Maribel-Colace) 1 tab PO BID [facility] Last Admin: 05/03/18 08:26 Dose: Not Given Sennosides (Senokot) 17.2 mg PO Q12H PRN PRN Reason: Moderate Constipation Allergies Allergy/AdvReac Type Severity Reaction Status Date / Time adhesive Allergy Unknown Rash Unverified 05/01/18 15:33 Sulfa (Sulfonamide Allergy Unknown Hives Unverified 05/01/18 15:33 Antibiotics) acetaminophen [From Lortab] Allergy Hives Verified 05/01/18 15:33 hydrocodone [From Lortab] Allergy Hives Verified 05/01/18 15:33 lovastatin, amlodipine Allergy Intermediate Hives Uncoded 05/01/18 15:33 besylate, alcohol (drinking) [place]PP[place] Allergy Unknown Anaphylaxis Uncoded 05/01/18 15:33 Home Medications Medication Instructions Recorded Confirmed Type chlorthalidone 25 mg PO DAILY 05/01/18 05/01/18 History insulin aspart U-100 [Novolog 1 - 10 sliding scale dose SUBCUT 05/01/18 History U-100 Insulin aspart] TIDAC insulin detemir U-100 [Levemir 30 unit SUBCUT QPM 05/01/18 05/01/18 History U-100 Insulin] insulin detemir U-100 [Levemir 45 unit SUBCUT QAM 05/01/18 05/01/18 History U-100 Insulin] metoprolol tartrate 12.5 mg PO BID 05/01/18 05/01/18 History rosuvastatin [Crestor] 5 mg PO DAILY 05/01/18 05/01/18 History Results - Labs CBC & Chem 7: 05/02/18 05:47 05/02/18 05:47 Laboratory Results - last 24 hr 05/02/18 05/03/18 05/03/18 20:34 03:17 08:21 POC Glucose 269 H 246 H 231 H Hemoglobin A1c 05/03/18 05/03/18 11:43 17:44 POC Glucose 245 H Hemoglobin A1c 10.2 H Microbiology 05/02/18 11:15 Tissue - Toe Gram Stain - Final 05/02/18 11:15 Tissue - Toe Wound Culture - Preliminary Group B beta Strep gram negative rods 05/01/18 16:25 Blood - Peripheral Aerobic Blood Culture - Preliminary Group B beta Strep 05/01/18 16:25 Blood - Peripheral Anaerobic Blood Culture - Preliminary Group B beta Strep 05/01/18 16:20 Blood - Peripheral Aerobic Blood Culture - Preliminary Group B beta Strep 05/01/18 16:20 Blood - Peripheral Anaerobic Blood Culture - Preliminary Group B beta Strep 05/02/18 11:15 Tissue - Toe Fungal Smear - Final No fungal elements seen - Imaging Impressions Aorta w/Runoff CTA 05/03/18 00:00 CONCLUSION: 1. Previous stent placement in the proximal superficial femoral arteries bilaterally. No focal discrete high-grade stenosis. Poor to moderate 1-2 vessel runoff bilaterally. See above discussion. No aneurysm or dissection. Assessment and Plan - Assessment (1) Diabetic foot infection Code(s): E11.628 - Type 2 diabetes mellitus with other skin complications; L08.9 - Local infection of the skin and subcutaneous tissue, unspecified Status: Acute (2) Sepsis Code(s): A41.9 - Sepsis, unspecified organism Status: Acute - Plan Continue weightbearing as tolerated in surgical shoe. Will change bandage in the next few days. Await culture results. I feel like all infected tissue was removed intraoperatively, but due to the severity of her presentation when she arrived to hospital, I would prefer patient be on 2 weeks IV antibiotics at least, to assist with healing Continue with vascular workup/plan per Dr Ames (2) Sepsis Qualifiers: Sepsis type: sepsis due to unspecified organism Qualified Code(s): A41.9 - Sepsis, unspecified organism
[2018-05-04] MEDS: Piperacil/Tazo 3.375 GM Premix 50 ML IV.SIG SCH ×4 (04:50→21:32)
[2018-05-04] MEDS ORDERED: Pharmacy Ordered Lab Info OTHER SCH (05:30)
[2018-05-04] MEDS: Vancomycin Inj 1,000 MG in Sodium Chlor 0.9% Inj 250 ML IV.SIG SCH (05:35)
[2018-05-04] MEDS: Ibuprofen 600 MG Tablet PO SCH ×3 (05:35→17:43)
[2018-05-04] MEDS: Insulin NovoLOG Aspart Correctional Sugar Inj SQ SCH ×4 (07:42→21:42)
[2018-05-04] MEDS: Insulin Detemir Inj 1,000 UNIT/10 ML Vial SQ SCH ×2 (08:49→21:42)
[2018-05-04] MEDS: Metoprolol Tartrate 25 MG Tablet PO SCH ×2 (08:49→21:27)
[2018-05-04] MEDS: Aspirin 325 MG Tablet PO SCH (08:50)
[2018-05-04] MEDS: Glimepiride 2 MG Tablet PO SCH ×2 (08:50→16:17)
[2018-05-04] MEDS: Senna/Docusate Sodium 8.6/50 MG Tablet PO SCH ×4 (08:53→21:29)
--- NOTE | 2018-05-04 10:40 | P.PNVS ---
- Pre-operative Note Planned Procedure: R LE angiogram and potential endovascular intervention Interval History: Pt has been feeling well, understands surgery and ready to proceed. Labs: WBC 12.8 th/mm3 (4.0-11.0) H 05/02/18 05:47 RBC 3.56 mil/mm3 (4.00-5.30) L 05/02/18 05:47 Hgb 11.7 gm/dL (11.6-15.3) D 05/02/18 05:47 Hct 32.8 % (35.0-46.0) L 05/02/18 05:47 MCV 92.3 fL (80.0-100.0) 05/02/18 05:47 MCH 32.9 pg (27.0-34.0) 05/02/18 05:47 MCHC 35.6 % (32.0-36.0) 05/02/18 05:47 RDW 13.2 % (11.6-17.2) 05/02/18 05:47 Plt Count 202 th/mm3 (150-450) 05/02/18 05:47 MPV 7.3 fL (7.0-11.0) 05/02/18 05:47 Sodium 138 meq/L (136-145) 05/02/18 05:47 Potassium 4.0 meq/L (3.5-5.1) 05/02/18 05:47 Chloride 105 meq/L (98-107) D 05/02/18 05:47 Carbon Dioxide 22.9 meq/L (21.0-32.0) 05/02/18 05:47 Anion Gap 10 meq/L (5-15) 05/02/18 05:47 BUN 18 mg/dL (7-18) 05/02/18 05:47 Random Glucose 240 mg/dL (74-106) H D 05/02/18 05:47 Calcium 8.0 mg/dL (8.5-10.1) L D 05/02/18 05:47 Blood: none needed Imaging: ITS Impressions Chest X-Ray 05/01/18 15:48 CONCLUSION: No acute intrathoracic disease. Knee X-Ray 05/01/18 16:22 CONCLUSION: Advanced arthropathy with moderate joint effusion No evidence of acute fracture. Foot MRI 05/01/18 18:30 CONCLUSION: 1. Soft tissue swelling and ulceration distally of the great toe. There is suspected osteomyelitis of the distal phalanx, mostly the distal half of the bone. No osteomyelitis of the great toe proximal phalanx or other bones of the right foot. 2. No abscess. Foot X-Ray 05/02/18 00:00 CONCLUSION: Post surgical changes are identified first digit. Aorta w/Runoff CTA 05/03/18 00:00 CONCLUSION: 1. Previous stent placement in the proximal superficial femoral arteries bilaterally. No focal discrete high-grade stenosis. Poor to moderate 1-2 vessel runoff bilaterally. See above discussion. No aneurysm or dissection. Orders: NPO after MN Post-operative Destination: DOCU then back to 1723 Operative site marked: No Consent: Informed consent has been obtained from Margarita Cisenros. I have explained the procedure in detail and discussed the risks, benefits, and potential complications. All questions have been answered.
--- NOTE | 2018-05-04 11:08 | ECHRPT ---
EXAM DATE: 05/04/2018 11:01 AM EST AGE/SEX: 77 years / Female INDICATIONS: right diabetic foot infection CLINICAL DATA: This is the patient's initial encounter. Patient reports that signs and symptoms have been present for 2 weeks and indicates a pain score of 10/10. MEDICAL/SURGICAL HISTORY: . aneurysm, diabetes, hypertension . amputated toe right foot COMPARISON: No prior exams available for comparison. TECHNIQUE: Four-cuff ankle and brachial pressures were obtained. Pulse cuff waveform tracings of the ankles were recorded, and ankle-brachial indices were calculated. PRESSURES (mmHg): Brachial (arm) : RIGHT: IV SITE, LEFT: 106 Ankle : RIGHT: 57, LEFT: 182 DULCE : RIGHT: 0.54, LEFT: 1.72 TBI : RIGHT: 0.00, LEFT: 0.51 FINDINGS: Pulsed-Cuff Waveform: Biphasic wave forms the ankles bilaterally.. Other: None. CONCLUSION: 1. Significantly reduced DULCE on the right with super normal DULCE on the left. The elevation of the le ft DULCE likely relates to a heavily calcified atherosclerotic plaque involving the left lower leg whic h artifactually elevates the DULCE. Electronically signed by: Alton Rowan MD 05/04/2018 11:07 AM EST
--- NOTE | 2018-05-04 15:50 | P.PNPOD ---
Subjective Interval history: 77-year-old female seen bedside. States she is having little bit of a sore throat which concerns her since she is having surgery with Dr. Ames tomorrow. Denies any calf pain at this time. Denies any nausea vomiting fevers or chills. Physical Exam Vital signs: Vital Signs 05/03/18 15:51 05/03/18 20:00 05/04/18 00:00 Temperature 97.8 F 98.2 F 98.5 F Pulse Rate 75 80 67 Respiratory Rate 20 18 20 Blood Pressure 139/71 143/64 H 116/68 Pulse Oximetry 99 96 94 L 05/04/18 03:47 05/04/18 08:00 05/04/18 11:00 Temperature 97.7 F 98 F Pulse Rate 76 73 Respiratory Rate 20 19 19 Blood Pressure 156/70 H 154/69 H Pulse Oximetry 99 97 Intake & Output 05/03/18 05/04/18 05/04/18 18:59 06:59 18:59 Intake Total 2306 / 2306 680 / 680 300 / 300 Balance 2306 / 2306 680 / 680 300 / 300 Weight 82.6 kg Intake: IV 2306 / 2306 100 / 100 300 / 300 Potassium Chlor 20 mEq/NACL 0. 706 / 706 45% Inj 1,000 ML @ 84 mls/hr IV .CONT .[id number] [facility]AC[facility] Rx#:[id number] Zosyn 3.375 GM Premix 50 ML @ 100 / 100 100 / 100 50 / 50 100 mls/hr IV.SIG Q6H RACHELLE Rx#: [id number] Vancomycin Inj 1,000 MG In NS 500 / 500 250 / 250 Inj 250 ML @ 250 mls/hr IV.SIG Q12H [facility]HEL[facility] Rx#:[id number] Oral 580 / 580 Other: # Voids 4 1 Date of Last Bowel Movement 05/02/18 05/04/18 # Bowel Movements 1 1 Narrative: Sutures intact with skin well coapted to right hallux amputation stump. Erythema noted. Nonpalpable DP PT pulses. Capillary refill time within normal limits to digits present and hallux amputation stump. Edema noted to right foot. Sanguinous drainage noted to amputation site. Medications and Allergies Active Medications: Active Medications Al Hydroxide/Mg Hydroxide (Milk Of Magnesia Liq) 30 ml PO Q12H PRN PRN Reason: Mild Constipation Al Hydroxide/Mg Hydroxide (Milk Of Izzy Proctor) 30 ml PO Q12H PRN PRN Reason: Mild Constipation Alprazolam (Xanax) 0.25 mg PO Q8H PRN PRN Reason: ANXIETY AND/OR AGITATION Aspirin (Aspirin) 325 mg PO DAILY [facility] Last Admin: 05/04/18 08:50 Dose: 325 mg Atorvastatin Calcium (Lipitor) 10 mg PO DAILY [facility] Last Admin: 05/04/18 08:50 Dose: 10 mg Bisacodyl (Dulcolax Supp) 10 mg RECTAL DAILY PRN PRN Reason: SEVERE CONSITIPATION Clonidine HCl (Catapres) 0.2 mg PO Q6H PRN PRN Reason: SBP>160, DBP>90 Dextrose (D50w Vial) 50 ml IV.PUSH UNSCH PRN PRN Reason: PER HYPOGLYCEMIA PROTOCOL Enalaprilat (Vasotec Inj) 1.5 mg IV.PUSH Q6H PRN PRN Reason: SYS BP GREATER THAN 160 MMHG Glimepiride (Amaryl) 2 mg PO BIDAC [facility] Last Admin: 05/04/18 08:50 Dose: Not Given Glucagon (Glucagon Inj) 1 mg OTHER PRN PRN PRN Reason: for Hypoglycemia Protocol Piperacillin/Tazobactam/Dextrose (Zosyn 3.375 Gm Premix) 50 mls @ 100 mls/hr IV.SIG Q6H [facility] Last Infusion: 05/04/18 11:08 Dose: Infused Sodium Chloride (Ns Inj) 500 mls @ 30 mls/hr IV.SIG .Q10H [facility] Last Admin: 05/02/18 13:38 Dose: Not Given Pharmacy Profile Note (Vancomycin Consult Pharmacy) 0 mls @ 0 mls/hr OTHER UNSCH [facility] Vancomycin HCl 1,500 mg/ (Sodium Chloride) 515 mls @ 257.5 mls/hr IV.SIG Q24H [facility] Ibuprofen (Motrin) 600 mg PO Q6HR PRN PRN Reason: temp above 100f Last Admin: 05/02/18 15:21 Dose: 600 mg Ibuprofen (Motrin) 600 mg PO Q6HR [facility] Last Admin: 05/04/18 12:41 Dose: 600 mg Insulin Aspart (Novolog Insulin Correctional Sugar Inj) 0 unit SQ ACHS [facility]; Protocol Last Admin: 05/04/18 12:41 Dose: 10 unit Insulin Detemir (Levemir Inj) 15 unit SQ BID [facility] Last Admin: 05/04/18 08:49 Dose: 15 unit Lactulose (Lactulose Liq) 30 ml PO DAILY PRN PRN Reason: SEVERE CONSITIPATION Metoprolol Tartrate (Lopressor) 12.5 mg PO BID [facility] Last Admin: 05/04/18 08:49 Dose: 12.5 mg Miscellaneous Information ([facility] Ordered Lab Info) 0 each OTHER ONCE ONE Stop: 05/06/18 20:46 Ondansetron HCl (Zofran Inj) 4 mg IV.PUSH Q6H PRN PRN Reason: NAUSEA OR VOMITING Oxycodone HCl (Roxicodone) 5 mg PO Q6H PRN PRN Reason: pain scale 6-10, (Chlorthalidone [ Chlorthalidone] 25 Mg) 1 each PO DAILY [facility] Senna/Docusate Sodium (Maribel-Colace) 1 tab PO BID [facility] Last Admin: 05/04/18 08:53 Dose: Not Given Senna/Docusate Sodium (Maribel-Colace) 1 tab PO BID [facility] Last Admin: 05/04/18 08:53 Dose: Not Given Sennosides (Senokot) 17.2 mg PO Q12H PRN PRN Reason: Moderate Constipation Allergies Allergy/AdvReac Type Severity Reaction Status Date / Time adhesive Allergy Unknown Rash Unverified 05/01/18 15:33 Sulfa (Sulfonamide Allergy Unknown Hives Unverified 05/01/18 15:33 Antibiotics) acetaminophen [From Lortab] Allergy Hives Verified 05/01/18 15:33 hydrocodone [From Lortab] Allergy Hives Verified 05/01/18 15:33 lovastatin, amlodipine Allergy Intermediate Hives Uncoded 05/01/18 15:33 besylate, alcohol (drinking) PEPPERS Allergy Unknown Anaphylaxis Uncoded 05/01/18 15:33 Home Medications Medication Instructions Recorded Confirmed Type chlorthalidone 25 mg PO DAILY 05/01/18 05/01/18 History insulin aspart U-100 [Novolog 1 - 10 sliding scale dose SUBCUT 05/01/18 History U-100 Insulin aspart] TIDAC insulin detemir U-100 [Levemir 30 unit SUBCUT QPM 05/01/18 05/01/18 History U-100 Insulin] insulin detemir U-100 [Levemir 45 unit SUBCUT QAM 05/01/18 05/01/18 History U-100 Insulin] metoprolol tartrate 12.5 mg PO BID 05/01/18 05/01/18 History rosuvastatin [Crestor] 5 mg PO DAILY 05/01/18 05/01/18 History Results - Labs CBC & Chem 7: 05/02/18 05:47 05/02/18 05:47 Laboratory Results - last 24 hr 05/03/18 05/03/18 05/04/18 17:44 20:37 04:30 POC Glucose 245 H 276 H Vancomycin Trough 11.1 H 05/04/18 05/04/18 07:37 12:21 POC Glucose 140 H 323 H Vancomycin Trough Microbiology 05/02/18 11:15 Tissue - Toe Gram Stain - Final 05/02/18 11:15 Tissue - Toe Wound Culture - Final Group B beta Strep Proteus mirabilis 05/01/18 16:25 Blood - Peripheral Aerobic Blood Culture - Final Group B beta Strep 05/01/18 16:25 Blood - Peripheral Anaerobic Blood Culture - Final Group B beta Strep 05/01/18 16:20 Blood - Peripheral Aerobic Blood Culture - Final Group B beta Strep 05/01/18 16:20 Blood - Peripheral Anaerobic Blood Culture - Final Group B beta Strep - Imaging Impressions Extremity Arterial Study 05/02/18 00:00 CONCLUSION: 1. Significantly reduced DULCE on the right with super normal DULCE on the left. The elevation of the left DULCE likely relates to a heavily calcified atherosclerotic plaque involving the left lower leg which artifactually elevates the DULCE. Assessment and Plan - Assessment (1) Diabetic foot infection Code(s): E11.628 - Type 2 diabetes mellitus with other skin complications; L08.9 - Local infection of the skin and subcutaneous tissue, unspecified Status: Acute Plan: 77-year-old female status post distal amputation/debridement of bone right distal hallux 05/02/18 Dr Marley Continue weightbearing as tolerated in surgical shoe. Dressing to right lower extremity change Per Dr. Marley; await culture results. I feel like all infected tissue was removed intraoperatively, but due to the severity of her presentation when she arrived to hospital, I would prefer patient be on 2 weeks IV antibiotics at least, to assist with healing Continue with vascular workup/plan per Dr Ames To OR with Dr. Ames tomorrow We will reevaluate patient prior to discharge (2) Sepsis Code(s): A41.9 - Sepsis, unspecified organism Status: Acute (2) Sepsis Qualifiers: Sepsis type: sepsis due to unspecified organism Qualified Code(s): A41.9 - Sepsis, unspecified organism
--- NOTE | 2018-05-04 16:27 | P.PNIM ---
Subjective Interval history: Follow up: OM right great toe patient c/o sinus drainage/post nasal drip requesting singular Physical Exam Vital signs: Last Vital Signs Temp 98 F 05/04/18 11:00 Pulse 73 05/04/18 11:00 Resp 19 05/04/18 11:00 BP 154/69 H 05/04/18 11:00 Pulse Ox 97 05/04/18 11:00 Narrative: GENERAL: This is a obese 77-year-old female, well-developed patient, in no apparent distress. SKIN: RLE is bandaged, C/D/I CARDIOVASCULAR: Regular rate and rhythm RESPIRATORY: Clear to auscultation. Breath sounds equal bilaterally. GASTROINTESTINAL: Abdomen soft, non-tender, nondistended. Normal active bowel sounds MUSCULOSKELETAL: Postop dressing dry and intact NEURO: Alert & Oriented. Moves all ext x4 Results Labs CBC & Chem 7: 05/06/18 06:43 05/06/18 06:43 Assessment and Plan Assessment (1) Diabetic foot infection: Code(s): E11.628 - Type 2 diabetes mellitus with other skin complications; L08.9 - Local infection of the skin and subcutaneous tissue, unspecified Status: Acute (2) Sepsis: Code(s): A41.9 - Sepsis, unspecified organism Status: Acute Plan This a 77-year-old female patient with past medical history which includes chronic kidney disease stage II, diabetes mellitus type 2, diabetic retinopathy , depression, and hypertension. Patient presented to the ER yesterday due to nonhealing wound right great toe, with fevers and generally feeling unwell. Patient reports that she has had a nonhealing wound on the right great toe for approximately 3 weeks. She stepped on a piece of glass. Patient reports for the past week it is been getting progressively worse. Patient states that it has become more red, swollen, and painful over the past week. Redness began traveling up the foot and ankle from that area. She running a fever and generally feeling unwell yesterday therefore she proceeded to the emergency department for further evaluation and treatment. Patient reports she has not yet seen outpatient podiatry or PCP for treatment of the wound. Patient denies nausea vomiting diarrhea constipation shortness of breath or chest pain. MRI showed findings consistent with osteomyelitis to distal phalanx of hallux. She does not see a fulfillment mail clerk as outpatient currently. Diabetic foot infection Osteomyelitis Chest X-Ray 05/01/18No acute intrathoracic disease. Foot X-Ray 05/01/18No acute fracture or joint dislocation. Primary degenerative changes are noted throughout the foot. Knee X-Ray 05/01/18 Advanced arthropathy with moderate joint effusion No evidence of acute fracture. Foot MRI 05/01/18 1. Soft tissue swelling and ulceration distally of the great toe. There is suspected osteomyelitis of the distal phalanx, mostly the distal half of the bone. No osteomyelitis of the great toe proximal phalanx or other bones of the right foot. 2. No abscess. CTA with runoff (05/03/18) Previous stent placement in the proximal superficial femoral arteries bilaterally. No focal discrete high-grade stenosis. Poor to moderate 1-2 vessel runoff bilaterally. See above discussion. No aneurysm or dissection.Electronically signed by: Brandon Parson MD 05/03/2018 1:16 PM EST - Case d/w Vascular Surgery 05/02, Dr. Ames (05/03). Likely angioplasty - aspirin started - Pt underwent Amputation distal right hallux with debridement of necrotic bone and soft tissue performed by Dr. Wooten (05/02/18) - pathology (05/02) pending - blood cultures (05/01/18) --> group B strep - intraoperative culture (05/02) --> group B strep, Gram negative rods - consult ID, appreciate assistacnce - ID recommendations: Continue Zosyn IV Continue Vanco IV (target 15-20) to cover possible resistant strep. Follow cultures Follow clinical course Would recommend repeating blood culture if negative at 72 hours ok to proceed with Vascular procedure. - Zosyn (05/01 - present) - Vancomycin (05/02 - present) - ibuprofen and Roxicodone as needed for pain. Pt allergic to tylenol(?) - DVT prophylaxis - supportive care - Vascular surgery Dr. Ames planning R LE angiogram and potential endovascular intervention tomorrow - podiatry Dr. Mckeon: 05/04 Continue weightbearing as tolerated in surgical shoe. Diabetes mellitus type 2 At home patient takes Levemir 45 mg subcu every morning and Levemir 30 mg subcu every afternoon Accu-Cheks AC at bedtime with sliding scale insulin coverage - HgA1C 10.2 (05/02) which is c/w prior outpt measurements - C peptide pending - start amaryl 2mg BID- patient refusing - start metformin 500mg soon & titrate. Pt had contrast study 05/02 and now with likely angioplasty. - continue Levemir 15 units BID - 05/04 blood glucose ranging from 140-323, patient will be NPO after midnight for procedure in AM Hypertension Continue patient's home metoprolol 12.5 mg p.o. twice daily Hyperlipidemia Continue patient's home Crestor 5 mg p.o. daily Chronic kidney disease stage II Avoid nephrotoxic agents monitor renal function Post nasal drip/congestion start singular Attending Attestation The exam, history, and the medical decision-making described in the above note were completed with the assistance of the mid-level provider. I reviewed and agree with the findings presented. I attest that I had a [id number] encounter with the patient on the same day, and personally performed and documented my assessment and findings in the medical record. Patient examined. Assessment and plan formulated with Marge Choudhary PA-C. I agree with the above. Progress Note: Quality VTE Deep Vein Thrombosis/Pulmonary Embolism Present on Admission: No _ (1) Sepsis Qualifiers: Sepsis type: sepsis due to unspecified organism Qualified Code(s): A41.9 - Sepsis, unspecified organism
[2018-05-04] MEDS: Montelukast 10 MG Tablet PO SCH (21:27)
[2018-05-04] MEDS: Vancomycin Inj 1,500 MG in Sodium Chlor 0.9% Inj 500 ML IV.SIG SCH (21:32)
[2018-05-04] MEDS: Phenol 1.4% 180 ML Spray Bottle OROPHARYNG PRN (21:41)
[2018-05-05] MEDS: Ibuprofen 600 MG Tablet PO SCH ×5 (00:14→23:31)
[2018-05-05] MEDS: Phenol 1.4% 180 ML Spray Bottle OROPHARYNG PRN ×2 (00:15→05:28)
[2018-05-05] MEDS: Piperacil/Tazo 3.375 GM Premix 50 ML IV.SIG SCH ×4 (05:28→23:31)
[2018-05-05] MEDS ORDERED: Chlorhexidine Gluconate 2% 1 Pack (2 Cloths) TOPICAL ONE (07:17)
[2018-05-05] MEDS: Glimepiride 2 MG Tablet PO SCH ×2 (09:58→18:04)
[2018-05-05] MEDS: Insulin NovoLOG Aspart Correctional Sugar Inj SQ SCH ×4 (09:58→21:12)
[2018-05-05] MEDS: Insulin Detemir Inj 1,000 UNIT/10 ML Vial SQ SCH ×2 (10:00→21:13)
[2018-05-05] MEDS: Aspirin 325 MG Tablet PO SCH (10:35)
[2018-05-05] MEDS: Metoprolol Tartrate 25 MG Tablet PO SCH ×2 (10:36→21:13)
[2018-05-05] MEDS ORDERED: fentaNYL Citrate Inj 100 MCG/2 ML Ampul ONE (10:59)
[2018-05-05] MEDS ORDERED: Heparin/NS PF Inj 1,000 ML ONE (10:59)
[2018-05-05] MEDS ORDERED: Heparin 10,000 UNITS/10 ML Vial (for IV use) ONE (10:59)
[2018-05-05] MEDS ORDERED: Lidocaine PF 1% Inj 30 ML Vial ONE (11:05)
--- NOTE | 2018-05-05 12:01 | P.OP ---
- Preoperative Diagnosis (1) PAD (peripheral artery disease) - Postoperative Diagnosis (1) PAD (peripheral artery disease) Date of procedure: 05/05/18 Procedure: 1. Aortogram w/ R LE angiogram 2. R TPT and peroneal CORPSMAN (2.5-3.0 taperered balloon) 3. L [employer]GER Angioseal Implants: L [employer] SALES MANAGER Angioseal Anesthesia: [facility] [place] Surgeon: Bhargav Ames MD Estimated blood loss (mL): 5 Pathology: none sent Operation and Findings: 1. Patent aorto-iliac disease; patent [employer] SALES MANAGER/PFA and SFA 2. Patent popliteal artery with BK pop stenosis 3. Occluded AT and PT 4. Proximal peroneal occlusion, able to recanalize and CORPSMAN with good runoff to ankle, then collaterals to foot
--- NOTE | 2018-05-05 12:02 | CATHPROC ---
[employer] HIS Report Study Information Study Number Admission Scheduled Start Study Start [id number] May 01 2018 5:38PM 05/05/2018 May 05 2018 10:43AM [place] [facility] Cath Endovascular Study Admit Source Facility Department Emergency department [facility] Physician and Clinical Staff Initial MD Ames, Bhargav Pony Cylinder Press Operator Jemima Rucker RN Recorder Sonya Davidson,LORRAINE TECH2 Scrub Hosterman, Otis,RT(R) Procedures Performed Procedure Location (Site) Vessel Name Abdominal Angiogram PELVIS Angiogram (manual) Fem Sup. (right) Femoral Art Angiogram (manual) Peroneal (right) Popliteal Angiogram (manual) Popliteal R (R10) Popliteal Angiogram (manual) Tib, Ant. (right) Popliteal Angiogram (manual) Tib, Post (right) Popliteal LICENSED PSYCHOLOGIST Peroneal (right) Popliteal Wire insertion Fem Art (left) Femoral Art Wire insertion Fem Art (right) Femoral Art Equipment Time Control And Recovery Combat Rescue Description Size Mfg Part Number Used/Scraped [id number] 11:07 ANGIO-DYNAMICS OMNI FLUSH 65CM CATHETER FR 5 Used *[id number] INTRODUCER SET, 10:45 [employer]. FR 5 [id number] *[id number] Used MICROPUNCTURE STIFF CXI-4.0-35-135- 11:28 COOK/BETSEY CATHETER, FR4 CXI SUPPORT FR 4 Used P-NS-0 *[id number] CATHETER, CXI SUPPORT 2.6FR 11:42 COOK/BETSEY [id number] Used 0.18 KCFW-6.0-38-90- 11:27 COOK/BETSEY SHEATH, FR6 RAABE 90CM FR 6 Used RB *[id number] WIRE, GUIDE APPROACH PLUNGER MACHINE OPERATOR [id number] 11:28 COOK/BETSEY 300CM Used MICROWIRE *[id number] WIRE, STORQ STANDARD MOD J [id number] 11:36 CORDIS/ BETSEY 300CM Used 300CM *[id number] 11:36 DAIG/[employer] MEDICAL ANGIOSEAL, FR6 VIP FR 6 Used *[id number] ENDOVASCULAR BALLOON, NANOCROSS 3.0 X [id number] 11:45 3 X 210 Used COMPANY 210MM 150CM *[id number] 10:45 [employer]craft BLANKET,WARM AIR CCL * Used *[id number] 10:45 MEDLINE [employer] PACK, CCL CUSTOM * Used *[id number] 11:43 LinPrim 30 JULIEN INDEFLATOR Used *[id number] 9095-33 11:28 LinPrim WIRE, BARNES 260CM .035 260CM Used *[id number] TUBING, 72" PRESSURE [id number] 11:05 NAM Used INJECTION (HYDROMETEOROLOGIST) 0476 TUBING, 72" PRESSURE [id number] 10:45 NAMIC Used INJECTION (HYDROMETEOROLOGIST) 0476 10:45 NYCOMED OMNIPAQUE, 300 MG, 150ML 150ML [id number] Used 10:45 NYCOMED OMNIPAQUE, 300 MG, 50ML 50ML [id number] Used 10:57 NYCOMED OMNIPAQUE, 300 MG, 50ML 50ML [id number] Used 10:57 NYCOMED OMNIPAQUE, 300 MG, 50ML 50ML [id number] Used [id number] 11:18 TERUMO MEDICAL SHEATH, FR5 TERUMO (10CM) FR 5 Used *[id number] 11:22 TERUMO MEDICAL/BETSEY CATHETER, FR5 ANGLED 100CM FR 5 [id number] *[id number] Used WIRE, ANGLED GLIDE .035 [id number] 10:45 TERUMO MEDICAL/BETSEY 260CM Used 260CM *[id number] Equipment Model, Serial, Lot Number and Expiration Data Description Model Number Serial Number Lot Number Expiration Date ANGIOSEAL, FR6 VIP [id number] 10-20-2018 CATHETER, FR4 CXI SUPPORT [id number] 10-28-2020 SHEATH, FR6 RAABE 90CM [id number] 02-06-2021 WIRE, GUIDE APPROACH PLUNGER MACHINE OPERATOR [id number] 02-19-2022 MICROWIRE History: Current Medications Medication Dosage/Unit Route Frequency Last Date/Time Taken ASA LIPITOR Xanax VASOTEC CLONIDINE Insulin LOPRESSOR CRESTOR History: Allergies Allergy Reaction Sulfa (Sulfonamide Antibiotics) Hives hydrocodone Hives acetaminophen Hives adhesive Rash PEPPERS Anaphylaxis lovastatin, amlodipine besylate, Hives alcohol (drinking) History: Risk Factors Hypertension Yes Peripheral Artery On Dialysis Diabetes Disease History: Other Disease Selection Items Depression Renal Failure/Insufficiency Labs Hgb (g/dl) Hct (%) WBC (l/cumm) Platelets (thousands) 11.60-17.00 35.00-51.00 4.00-11.00 150.00-450.00 11.7 32.8 12.8 202 Glucose (mg/dl) BUN (mg/dl) Creatinine (mg/dl) BUN:Creatinine (1:x) 74.00-106.00 7.00-18.00 0.50-1.30 10.00-20.00 204 18 0.9 20 Na (meq/l) K (meq/l) 136.00-145.00 3.50-5.10 138 4 Medication Medication Total Dose (Bolus/Oral) Medication Total Dosage/Unit 1% XYLOCAINE 20 mL FENTANYL 50 mcg HEPARIN 5000 units OXYGEN 2 l/min VERSED 2 mg Medications (Bolus/Oral) Medication Time Given Dosage/Unit Administered By Reason 05/05/2018 11:13:03 VERSED 1 mg Jemima Rucker AM 1 mg VERSED given in lab by Jemima Rucker RN in Left Hand via Peripheral IV. Ordered by Mary Ames. 05/05/2018 11:14:46 FENTANYL 25 mcg Jemima Rucker AM 25 mcg FENTANYL given in lab by Jemima Rucker RN in Left Hand via Peripheral IV. Ordered by Bhargav Ames. 05/05/2018 11:14:52 1% XYLOCAINE 20 mL Bhargav Ames AM 20 mL 1% XYLOCAINE given in lab by Bhargav Ames in Left Groin via Subcutaneous. Ordered by Bhargav Ames. 05/05/2018 11:28:24 HEPARIN 5000 units Bhargav Ames AM 5000 units HEPARIN given in lab by Bhargav Ames in Left Hand via Peripheral IV. Ordered by Bhargav Ames. 05/05/2018 11:38:14 VERSED 1 mg Jemima Rucker AM 1 mg VERSED given in lab by Jemima Rucker RN in Left Hand via Peripheral IV. Ordered by Mary Ames. 05/05/2018 11:39:33 FENTANYL 25 mcg Jemima Rucker AM 25 mcg FENTANYL given in lab by Jemima Rucker RN in Left Hand via Peripheral IV. Ordered by Bhargav Ames. 05/05/2018 11:43:03 OXYGEN 2 l/min Jemima Rucker AM 2 l/min OXYGEN given in lab by Jemima Rucker RN via Nasal. Ordered by Bhargav Ames. Medication (Drip) Medication Time Given Dosage/Unit Concentration/Unit Diluent (ml) Solution 05/05/2018 11:03:25 IV Solutions 0 mL (IV) 500 NaCl .9 AM Patient arrived on IV Solutions in Left Hand via Peripheral IV. Pump/Drip Flow = 20 ml/hr using NaCl .9. Initial Case Assessment Cardiovascular HR Rhythm NIBP Chest Pain 84 sr 153/74 0 Circulatory - Right Pulses Femoral 1 Scale (0,1,2,3,4,d) Circulatory - Left Pulses Femoral 1 Scale (0,1,2,3,4,d) Neurological State Oriented to time-place- Alert Moves all extremities person Respiration - General Respiration Rate SpO2 (%) (B/min) 10 98 Final Case Assessment Cardiovascular HR Rhythm NIBP Chest Pain 68 sr 138/70 0 Neurological State Oriented to time-place- Alert Moves all extremities person Respiration - General Respiration Rate SpO2 (%) (B/min) 20 96 Chronological Log Time Study Chronological Log 10:50:17 Patient arrived via Bed. 10:50:17 Patient Name, D.O.B, / Armband Verified By R.N. 10:53:29 MD arrived. Vitals capture started with the following parameters, Patient=Adult, Interval=5 min, Initial Pr kqdwue=583 mmHg, 10:55:12 Deflation Rate=5 mmHg, Cuff placed on Left Arm 10:56:31 JOGW=727/97 mmhg, SpO2=99.0 % 11:00:58 HR=84 bpm, XQTF=201/73 mmhg, SpO2=98.0 %, Resp=9 B/min, Pain=0, Osborn=2 Assessment: Initial Case, HR=84 BPM, Rhythm=sr, WSXM=820/74 mmhg, Chest Pain=0 Right Pulses: Femoral=1 11:01:28 Left Pulses: Femoral=1 Neurological: State=Alert, Ox3, SEPULVEDA Respiration: Resp=10 B/min, SpO2=98 % 11:03:00 Consent signed by the physician and the patient and verified by the [facility] staff. 11:03:01 Pre-op and post- op instructions given; patient acknowledges understanding of instructions. 11:03:02 Verbal Stimulation=2 Physical Stimulation=2 Airway=2 Respiration=2 TOTAL=8. (0=absent, 1=li mited, 2=present) 11:03:16 Presedation assessment performed by [facility] RN. 11:03:18 Patient has been NPO for More than 6Hrs. 11:03:19 Skin Breakdown-bandage to right foot post right toe amputation. 11:03:23 [place] Prominences Protected 11:03:24 A # 20 IV was noted in the Hand (left). Grade = 0 11:03:25 Patient arrived on IV Solutions in Left Hand via Peripheral IV. Pump/Drip Flow = 20 ml/hr u sing NaCl .9. 11:03:26 History and physical on the chart or being dictated. Time Out. Correct patient, correct procedure, correct physician, labs, allergies, and equipment verified with warehouse laborer 11:05:36 team present. Fire risk assesment completed (see hard stop sheet for coding). Time Out Conc urred by MD and individual staff in procedure. 11:05:57 HR=69 bpm, HDZN=851/72 mmhg, SpO2=99.0 %, Resp=11 B/min 11:07:32 Bilateral groins prepped with 2% chlorhexidine, and draped after a 3 minute waiting time. 11:10:54 HR=66 bpm, KIJD=786/78 mmhg, SpO2=97.0 %, Resp=11 B/min 11:13:03 1 mg VERSED given in lab by Jemima Rucker RN in Left Hand via Peripheral IV. Ordered by Bhargav Ames. 11:14:46 25 mcg FENTANYL given in lab by Jemima Rucker RN in Left Hand via Peripheral IV. Ordered by Bhargav Ames. 11:14:51 Case Start 11:14:52 20 mL 1% XYLOCAINE given in lab by Bhargav Ames in Left Groin via Subcutaneous. Ordered b Bhargav Damon. 11:15:57 HR=81 bpm, IAMA=215/72 mmhg, SpO2=94.0 %, Resp=18 B/min 11:16:58 Access site was Left Femoral Artery. A INTRODUCER SET, MICROPUNCTURE STIFF FR 5 was advanced into the Fem Art (left) using the Juan Carlos tom 11:17:06 technique. 11:17:22 A WIRE, ANGLED GLIDE .035 260CM 260CM was inserted via Fem Art (right). A SHEATH, FR5 TERUMO (10CM) FR 5 was exchanged in the Fem Art (left). This was necessary in ord er to 11:17:38 accomodate a larger catheter. A OMNI FLUSH 65CM CATHETER FR 5 was advanced over a wire. OMNIPAQUE, 300 MG, 50ML 50ML was used for 11:18:28 injections. 11:18:30 Wire removed 11:19:47 Through a OMNI FLUSH 65CM CATHETER FR 5, The Abdominal Aorta was injected with 20 cc's of c ontrast. 11:20:30 A WIRE, ANGLED GLIDE .035 260CM 260CM was inserted via Fem Art (left). Advanced up and over to the right iliac 11:20:56 HR=63 bpm, FXWJ=742/62 mmhg, SpO2=93.0 %, Resp=15 B/min After removing the current catheter a CATHETER, FR5 ANGLED 100CM FR 5 was advanced over a WIRE, ANGLED 11:21:30 GLIDE .035 260CM 260CM. 11:22:37 Fem Sup. (right) angiogram, manually injected. 11:23:44 Popliteal R (R10) angiogram, manually injected. 11:23:50 Peroneal (right) angiogram, manually injected. 11:23:57 Tib, Post (right) angiogram, manually injected. 11:25:34 Tib, Ant. (right) angiogram, manually injected. 11:25:55 HR=61 bpm, DKUH=839/58 mmhg, SpO2=92.0 %, Resp=14 B/min 11:28:24 5000 units HEPARIN given in lab by Bhargav Ames in Left Hand via Peripheral IV. Ordered b Bhargav Dmaon. 11:30:54 HR=64 bpm, IUZR=142/62 mmhg, SpO2=95.0 %, Resp=19 B/min 11:32:40 Reference ECG taken After removing the current catheter a OMNI FLUSH 65CM CATHETER FR 5 was advanced over a WIRE, A NGLED GLIDE 11:33:17 .035 260CM 260CM. 11:34:21 Omni flush Catheter was removed w/o difficulty A CATHETER, FR5 ANGLED 100CM FR 5 was advanced over a wire. OMNIPAQUE, 300 MG, 150ML 150ML was used for 11:34:42 injections. 11:35:03 [place] Wire removed 11:35:26 A WIRE, STORQ STANDARD MOD J 300CM 300CM was inserted via Fem Art (left). 11:35:47 [place] Catheter was removed w/o difficulty 11:35:53 HR=66 bpm, FRQP=353/66 mmhg, SpO2=98.0 %, Resp=20 B/min A SHEATH, FR6 RAABE 90CM FR 6 was exchanged in the Fem Art (left). This was necessary in order to accomodate a 11:36:09 larger catheter. Advanced up and over to the right A CATHETER, FR4 CXI SUPPORT FR 4 was advanced over a wire. OMNIPAQUE, 300 MG, 150ML 150ML was u sed for 11:37:29 injections. 11:38:14 1 mg VERSED given in lab by Jemima Rucker, PRINCESS in Left Hand via Peripheral IV. Ordered by Bhargav Ames. 11:38:39 The previous wire was exchanged for a WIRE, GUIDE APPROACH PLUNGER MACHINE OPERATOR MICROWIRE 300CM. 11:39:33 25 mcg FENTANYL given in lab by Jemima Rucker, PRINCESS in Left Hand via Peripheral IV. Ordered by Bhargav Ames. 11:40:54 HR=68 bpm, BMOP=455/67 mmhg, SpO2=95.0 %, Resp=13 B/min A CATHETER, CXI SUPPORT 2.6FR 0.18 was advanced over a wire. OMNIPAQUE, 300 MG, 150ML 150ML was used for 11:41:12 injections. 11:43:03 2 l/min OXYGEN given in lab by Jemima Rucker, PRINCESS via Nasal. Ordered by Bhargav Ames. 11:44:37 CXI Catheters removed w/o difficulty A BALLOON, NANOCROSS 3.0 X 210MM 150CM 3 X 210 was inserted over WIRE, GUIDE APPROACH PLUNGER MACHINE OPERATOR MICRO WIRE 11:44:55 300CM via the Fem Art (left). 11:45:59 HR=67 bpm, DQRE=344/58 mmhg, SpO2=97.0 %, Resp=15 B/min 11:46:41 In the Peroneal (right) a BALLOON, NANOCROSS 3.0 X 210MM 150CM 3 X 210 was inflated to 8 at ms for 120 seconds. 11:48:23 Balloon Removed. 11:49:21 Peroneal (right) angiogram, manually injected. 11:49:49 Tib, Post (right) angiogram, manually injected. 11:50:03 Tib, Post (right) angiogram, manually injected. 11:50:56 HR=68 bpm, KSFV=767/59 mmhg, SpO2=98.0 %, Resp=13 B/min 11:51:07 Wire removed 11:51:09 A WIRE, BARNES 260CM .035 260CM was inserted via Fem Art (left). 11:51:47 6FR sheath pulled back to abdominal AO. 11:52:36 ANGIOSEAL, FR6 VIP FR 6 placement in the Fem Art (left) 11:53:24 Case End (Physician broke scrub) 11:56:32 HR=69 bpm, NDUC=628/70 mmhg, SpO2=99.0 %, Resp=15 B/min 11:58:20 Sterile dressing applied to site 11:58:21 No case complications noted. 11:58:22 Cine recording checked. 11:58:24 Bedside Report will be given. 11:58:27 Implantable Device card placed in patient's chart. Assessment: Final Case, HR=68 BPM, Rhythm=sr, HCQC=850/70 mmhg, Chest Pain=0 11:58:29 Neurological: State=Alert, Ox3, SEPULVEDA Respiration: Resp=20 B/min, SpO2=96 % 11:59:17 Vitals capture stopped. 12:02:25 Patient moved to bed 12:03:33 Patient transported to DOCU. End Study - Contrast Media Used In Study Contrast Total Opened (mL) Total Used (mL) Total Wasted (mL) Omnipaque 300 60 60 0 End Study - Maximum Contrast Load Max Contrast Load (mL) 1011.1 End Study - Radiation Exposure Fluoro Time Fluoro Dose (mGy) Cine Dose (uGym2) (minutes) 12.9 259 5700 End Study - Sheaths Sheaths Pulled By Sheath Hold Time (min) Bhargav Aems End Study - Patient Disposition Complications Transferred To Interventional Outcome No Telemetry Bed successful
--- NOTE | 2018-05-05 12:45 | MP ---
cc: Bhargav Ames MD DATE OF OPERATION: 05/05/2018 PREOPERATIVE DIAGNOSIS: Right lower extremity tissue loss, PAD. POSTOPERATIVE DIAGNOSIS: Right lower extremity tissue loss, PAD. PROCEDURE PERFORMED: 1. Aortogram with right lower extremity angiogram. 2. Right TP trunk and peroneal artery angioplasty with a 2.5-3 mm tapered balloon. 3. Left common femoral to Angio-Seal. ATTENDING SURGEON: Bhargav Ames MD ANESTHESIA: Local with sedation. INDICATIONS FOR PROCEDURE: The patient is a 77-year-old lady with right lower extremity tissue loss. She has a nonpalpable pedal pulse and she was taken to the operating room for angiographic evaluation and potential treatment. There was no prior catheter based imaging for my review. DESCRIPTION OF PROCEDURE: Informed consent was obtained from the patient. She was taken to the operating room and placed supine on the operating table. An appropriate timeout was taken to ensure the patient's identity, the operative site and the procedure. Antibiotics are not necessary since this is a clean procedure without planned implantation of the foreign object. Everyone in the room agreed with the timeout and we proceeded. Her bilateral groins were prepped and draped. The left groin was anesthetized with 1% lidocaine. A 21-gauge micropuncture needle was used to access the left common femoral artery. This was exchanged using Seldinger technique for a micropuncture sheath through which a 0.05 Glidewire was introduced and the micropuncture sheath were exchanged for a 5-Lao sheath. A VCF catheter was placed over the wire and through the sheath and an aortogram and pelvic arteriogram was obtained. The Glidewire was navigated in through the right common femoral artery and the VCF catheter exchanged for a glide catheter, which was navigated down to the right common femoral artery and right lower extremity arteriogram was obtained. The patient was heparinized with 5000 units of IV heparin. A 0.035 Glidewire was advanced through the glide catheter down to the mid SFA and a glide catheter was advanced, and then the Glidewire was exchanged for a STORQ wire. The glide catheter and 5-Lao sheath were removed, and a 6-Lao 90 cm sheath was then advanced to the distal SFA. A CXI catheter was placed over the STORQ, the STORQ was exchanged for a COMBATANT DIVER QUALIFIED wire. The COMBATANT DIVER QUALIFIED was used to recanalize the proximal peroneal artery, and then an 0.18 CXI was placed through the 0.35 CXI and a curve on the COMBATANT DIVER QUALIFIED wire was used to navigate into the peroneal artery and the entire area was angioplastied with a tapered 2.5 and 3 mm balloon. The completion angiogram showed excellent result without extravasation. The wire, catheter and sheath were removed and the groin was closed with an Angioseal. There were no complications. I was present and scrubbed for the entire procedure. INTERPRETATION IMAGES: The patient has a patent terminal aorta, common iliac arteries, external carotid and hypogastric arteries bilaterally. The right common femoral artery is patent. The SFA and profunda are patent. The popliteal artery was patent, below-knee popliteal artery had the stenosis and the anterior tibial and posterior tibial artery are occluded. Collaterals give rise to the peroneal artery in the midcalf. After recanalizing and angioplasty, there was inline flow to the peroneal artery and all the way down to the ankle, at which point collaterals give rise to the pedal vessels. MD SNOW Jackson/jalen , 12:05 PM , 12:13 PM MTDD
--- NOTE | 2018-05-05 13:45 | P.PNIM ---
Subjective Interval history: Pt has NO new clinical complaints. ] Pain is controlled. Physical Exam Vital signs: Last Vital Signs Temp 97.8 F 05/05/18 08:00 Pulse 77 05/05/18 09:22 Resp 18 05/05/18 08:00 BP 160/70 H 05/05/18 09:22 Pulse Ox 99 05/05/18 12:18 Narrative: GENERAL: This is a obese 77-year-old female, well-developed patient, in no apparent distress. SKIN: RLE is bandaged, C/D/I CARDIOVASCULAR: Regular rate and rhythm RESPIRATORY: Clear to auscultation. Breath sounds equal bilaterally. GASTROINTESTINAL: Abdomen soft, non-tender, nondistended. Normal active bowel sounds MUSCULOSKELETAL: Postop dressing dry and intact NEURO: Alert & Oriented. Moves all ext x4 Results Labs CBC & Chem 7: 05/06/18 06:43 05/06/18 06:43 Assessment and Plan Assessment (1) Diabetic foot infection: Code(s): E11.628 - Type 2 diabetes mellitus with other skin complications; L08.9 - Local infection of the skin and subcutaneous tissue, unspecified Status: Acute (2) Sepsis: Code(s): A41.9 - Sepsis, unspecified organism Status: Acute Plan This a 77-year-old female patient with past medical history which includes chronic kidney disease stage II, diabetes mellitus type 2, diabetic retinopathy , depression, and hypertension. Patient presented to the ER yesterday due to nonhealing wound right great toe, with fevers and generally feeling unwell. Patient reports that she has had a nonhealing wound on the right great toe for approximately 3 weeks. She stepped on a piece of glass. Patient reports for the past week it is been getting progressively worse. Patient states that it has become more red, swollen, and painful over the past week. Redness began traveling up the foot and ankle from that area. She running a fever and generally feeling unwell yesterday therefore she proceeded to the emergency department for further evaluation and treatment. Patient reports she has not yet seen outpatient podiatry or PCP for treatment of the wound. Patient denies nausea vomiting diarrhea constipation shortness of breath or chest pain. MRI showed findings consistent with osteomyelitis to distal phalanx of hallux. She does not see a scourer as outpatient currently. Diabetic foot infection Osteomyelitis Chest X-Ray 05/01/18No acute intrathoracic disease. Foot X-Ray 05/01/18No acute fracture or joint dislocation. Primary degenerative changes are noted throughout the foot. Knee X-Ray 05/01/18 Advanced arthropathy with moderate joint effusion No evidence of acute fracture. Foot MRI 05/01/18 1. Soft tissue swelling and ulceration distally of the great toe. There is suspected osteomyelitis of the distal phalanx, mostly the distal half of the bone. No osteomyelitis of the great toe proximal phalanx or other bones of the right foot. 2. No abscess. CTA with runoff (05/03/18) Previous stent placement in the proximal superficial femoral arteries bilaterally. No focal discrete high-grade stenosis. Poor to moderate 1-2 vessel runoff bilaterally. See above discussion. No aneurysm or dissection.Electronically signed by: Brandon Parson MD 05/03/2018 1:16 PM EST - Case d/w Vascular Surgery 05/02, Dr. Ames (05/03). Likely angioplasty - aspirin started - Pt underwent Amputation distal right hallux with debridement of necrotic bone and soft tissue performed by Dr. Wooten (05/02/18) - pathology (05/02) pending - blood cultures (05/01/18) --> group B strep - intraoperative culture (05/02) --> group B strep, Gram negative rods - consult ID, appreciate assistacnce - Zosyn (05/01 - present) - Vancomycin (05/02 - present) - ibuprofen and Roxicodone as needed for pain. Pt allergic to tylenol(?) - Pt underwent RLE revascularization with Dr. Ames (05/05/18) 1. Aortogram w/ R LE angiogram 2. R TPT and peroneal CEMENT HANDLER (2.5-3.0 taperered balloon) 3. L CLINIC OFFICE MANAGER Angioseal - DVT prophylaxis - supportive care - podiatry Dr. Mckeon: 05/04 Continue weightbearing as tolerated in surgical shoe. Diabetes mellitus type 2 At home patient takes Levemir 45 mg subcu every morning and Levemir 30 mg subcu every afternoon Accu-Cheks AC at bedtime with sliding scale insulin coverage - HgA1C 10.2 (05/02) which is c/w prior outpt measurements - C peptide pending - start amaryl 2mg BID- patient refusing - start metformin 500mg soon & titrate. Pt had contrast study 05/02 and now with likely angioplasty. - continue Levemir 15 units BID - 05/04 blood glucose ranging from 140-323, patient will be NPO after midnight for procedure in AM Hypertension Continue patient's home metoprolol 12.5 mg p.o. twice daily Hyperlipidemia Continue patient's home Crestor 5 mg p.o. daily Chronic kidney disease stage II Avoid nephrotoxic agents monitor renal function Post nasal drip/congestion start singular Progress Note: Quality VTE Deep Vein Thrombosis/Pulmonary Embolism Present on Admission: No _ (1) Sepsis Qualifiers: Sepsis type: sepsis due to unspecified organism Qualified Code(s): A41.9 - Sepsis, unspecified organism
[2018-05-05] MEDS: Senna/Docusate Sodium 8.6/50 MG Tablet PO SCH ×4 (13:55→21:14)
[2018-05-05] MEDS ORDERED: Iohexol 350 MG/ML 100 ML Vial (for Cath Lab) IVCONTRAST ONE (17:02)
[2018-05-05] MEDS: Montelukast 10 MG Tablet PO SCH (21:15)
[2018-05-05] MEDS: Vancomycin Inj 1,500 MG in Sodium Chlor 0.9% Inj 500 ML IV.SIG SCH (21:15)
[2018-05-06] MEDS: Piperacil/Tazo 3.375 GM Premix 50 ML IV.SIG SCH ×4 (05:45→21:05)
[2018-05-06] MEDS: Ibuprofen 600 MG Tablet PO SCH ×3 (05:45→18:04)
[2018-05-06 07:17] LABS: Baso # (Auto) 0.1 th/mm3 (0.0-0.2); Baso % (Auto) 0.7 % (0.0-2.0); Eos # (Auto) 0.4 th/mm3 (0.0-0.4); Eos % (Auto) 4.5 % (0.0-4.0); Hemoglobin 11.7 gm/dL (11.6-15.3); Lymph # (Auto) 1.5 th/mm3 (1.0-4.8); Mean Corpuscular HGB Conc 35.6 % (32.0-36.0); Mean Corpuscular Hemoglobin 32.8 pg (27.0-34.0); Mean Corpuscular Volume 92.3 fL (80.0-100.0); Mean Platelet Volume 6.9 fL (7.0-11.0); Mono # (Auto) 0.8 th/mm3 (0.0-0.9); Neut # (Auto) 6.2 th/mm3 (1.8-7.7); Neut % (Auto) 68.8 % (16.0-70.0); Platelet Count 257 th/mm3 (150-450); Red Blood Count 3.58 mil/mm3 (4.00-5.30); Red Cell Distribution Width 13.1 % (11.6-17.2)
[2018-05-06 07:36] LABS: Calcium 8.3 mg/dL (8.5-10.1); Carbon Dioxide 22.6 meq/L (21.0-32.0); Magnesium 2.1 mg/dL (1.5-2.5); Potassium 3.6 meq/L (3.5-5.1)
--- NOTE | 2018-05-06 07:55 | P.PNVS ---
Subjective Subjective/Hospital Course: POD#1 s/p R TPT IN [employer] looks great; foot warm no LEFT groin pain Objective Vital Signs / I&O: Vital Signs 05/05/18 08:00 05/05/18 09:22 05/05/18 12:18 Temperature 97.8 F Pulse Rate 77 77 Respiratory Rate 18 Blood Pressure 176/78 H 160/70 H Pulse Oximetry 97 99 05/05/18 16:00 05/05/18 20:00 05/06/18 00:00 Temperature 97.9 F 98.1 F 98 F Pulse Rate 63 71 67 Respiratory Rate 18 17 17 Blood Pressure 133/71 167/67 H 167/69 H Pulse Oximetry 98 97 99 05/06/18 04:12 Temperature 97.8 F Pulse Rate 71 Respiratory Rate 17 Blood Pressure 162/72 H Pulse Oximetry 99 Intake & Output 05/05/18 05/06/18 05/06/18 18:59 06:59 18:59 Intake Total 100 / 100 1095 / 1095 Balance 100 / 100 1095 / 1095 Weight 83.8 kg Intake: IV 100 / 100 615 / 615 Zosyn 3.375 GM Premix 50 ML @ 100 / 100 100 / 100 100 mls/hr IV.SIG Q6H RACHELLE Rx#: [id number] Vancomycin Inj 1,500 MG In NS 515 / 515 Inj 500 ML @ 257.5 mls/hr IV. SIG Q24H RACHELLE Rx#:[id number] Oral 480 / 480 Other: # Voids 2 3 Date of Last Bowel Movement 05/04/18 # Bowel Movements 1 2 Physical Exam: L groin soft R foot wrapped per podiatry Laboratory Results - last 24 hr 05/05/18 05/05/18 05/06/18 17:34 21:08 06:43 WBC RBC Hgb Hct MCV MCH MCHC RDW Plt Count MPV Neut % (Auto) Lymph % (Auto) Dixie % (Auto) Eos % (Auto) Baso % (Auto) Neut # (Auto) Lymph # (Auto) Dixie # (Auto) Eos # (Auto) Baso # (Auto) WBC Differential Differential Comment Sodium 143 Potassium 3.6 Chloride 111 H Carbon Dioxide 22.6 Anion Gap 9 BUN 8 Creatinine 0.86 Estimated GFR 64 L POC Glucose 276 H 297 H Random Glucose 95 Calcium 8.3 L Magnesium 2.1 05/06/18 05/06/18 06:43 07:31 WBC 9.0 RBC 3.58 L Hgb 11.7 Hct 33.0 L MCV 92.3 MCH 32.8 MCHC 35.6 RDW 13.1 Plt Count 257 MPV 6.9 L Neut % (Auto) 68.8 Lymph % (Auto) 17.0 Dixie % (Auto) 9.0 H Eos % (Auto) 4.5 H Baso % (Auto) 0.7 Neut # (Auto) 6.2 Lymph # (Auto) 1.5 Dixie # (Auto) 0.8 Eos # (Auto) 0.4 Baso # (Auto) 0.1 WBC Differential . Differential Comment Auto diff final Sodium Potassium Chloride Carbon Dioxide Anion Gap BUN Creatinine Estimated GFR POC Glucose 107 Random Glucose Calcium Magnesium Microbiology 05/04/18 04:09 Aerobic Blood Culture - Preliminary Blood - Peripheral No growth in 1 day Anaerobic Blood Culture - Preliminary No growth in 1 day 05/04/18 04:00 Aerobic Blood Culture - Preliminary Blood - Peripheral No growth in 1 day Anaerobic Blood Culture - Preliminary No growth in 1 day Impressions Extremity Arterial Study 05/02/18 00:00 CONCLUSION: 1. Significantly reduced DULCE on the right with super normal DULCE on the left. The elevation of the left DULCE likely relates to a heavily calcified atherosclerotic plaque involving the left lower leg which artifactually elevates the DULCE. Assessment and Plan - Assessment (1) Osteomyelitis of toe of right foot Code(s): M86.9 - Osteomyelitis, unspecified Status: Acute - Plan POD#1 s/p R infrapopliteal IN [employer] 1. Plavix daily 2. Wound care per podiatry 3. Clear for discharge from vascular surgery standpoint 4. Will arrange f/u in 1 week with [facility] Discharge Planning: anytime from a vascular surgery standpoint
[2018-05-06] MEDS: Insulin Detemir Inj 1,000 UNIT/10 ML Vial SQ SCH ×2 (08:45→21:03)
[2018-05-06] MEDS: Aspirin 325 MG Tablet PO SCH (08:47)
[2018-05-06] MEDS: Metoprolol Tartrate 25 MG Tablet PO SCH ×2 (08:48→21:04)
[2018-05-06] MEDS: Insulin NovoLOG Aspart Correctional Sugar Inj SQ SCH ×4 (10:57→21:02)
[2018-05-06] MEDS: Glimepiride 2 MG Tablet PO SCH ×2 (10:57→17:20)
[2018-05-06] MEDS: Senna/Docusate Sodium 8.6/50 MG Tablet PO SCH ×4 (10:58→21:04)
--- NOTE | 2018-05-06 17:14 | P.PNIM ---
Subjective Interval history: No new complaints. Physical Exam Vital signs: Last Vital Signs Temp 97.3 F L 05/06/18 16:00 Pulse 71 05/06/18 16:00 Resp 18 05/06/18 16:00 BP 157/82 H 05/06/18 16:00 Pulse Ox 97 05/06/18 16:00 Narrative: GENERAL: This is a obese 77-year-old female, well-developed patient, in no apparent distress. SKIN: RLE is bandaged, C/D/I CARDIOVASCULAR: Regular rate and rhythm RESPIRATORY: Clear to auscultation. Breath sounds equal bilaterally. GASTROINTESTINAL: Abdomen soft, non-tender, nondistended. Normal active bowel sounds MUSCULOSKELETAL: Postop dressing dry and intact NEURO: Alert & Oriented. Moves all ext x4 Results Labs CBC & Chem 7: 05/06/18 06:43 05/06/18 06:43 Assessment and Plan Assessment (1) Diabetic foot infection: Code(s): E11.628 - Type 2 diabetes mellitus with other skin complications; L08.9 - Local infection of the skin and subcutaneous tissue, unspecified Status: Acute (2) Sepsis: Code(s): A41.9 - Sepsis, unspecified organism Status: Acute Plan This a 77-year-old female patient with past medical history which includes chronic kidney disease stage II, diabetes mellitus type 2, diabetic retinopathy , depression, and hypertension. Patient presented to the ER yesterday due to nonhealing wound right great toe, with fevers and generally feeling unwell. Patient reports that she has had a nonhealing wound on the right great toe for approximately 3 weeks. She stepped on a piece of glass. Patient reports for the past week it is been getting progressively worse. Patient states that it has become more red, swollen, and painful over the past week. Redness began traveling up the foot and ankle from that area. She running a fever and generally feeling unwell yesterday therefore she proceeded to the emergency department for further evaluation and treatment. Patient reports she has not yet seen outpatient podiatry or PCP for treatment of the wound. Patient denies nausea vomiting diarrhea constipation shortness of breath or chest pain. MRI showed findings consistent with osteomyelitis to distal phalanx of hallux. She does not see a engineering surveyor as outpatient currently. Diabetic foot infection Osteomyelitis Chest X-Ray 05/01/18No acute intrathoracic disease. Foot X-Ray 05/01/18No acute fracture or joint dislocation. Primary degenerative changes are noted throughout the foot. Knee X-Ray 05/01/18 Advanced arthropathy with moderate joint effusion No evidence of acute fracture. Foot MRI 05/01/18 1. Soft tissue swelling and ulceration distally of the great toe. There is suspected osteomyelitis of the distal phalanx, mostly the distal half of the bone. No osteomyelitis of the great toe proximal phalanx or other bones of the right foot. 2. No abscess. CTA with runoff (05/03/18) Previous stent placement in the proximal superficial femoral arteries bilaterally. No focal discrete high-grade stenosis. Poor to moderate 1-2 vessel runoff bilaterally. See above discussion. No aneurysm or dissection.Electronically signed by: Brandon Parson MD 05/03/2018 1:16 PM EST - Case d/w Vascular Surgery 05/02, Dr. Ames (05/03). Likely angioplasty - aspirin started - Pt underwent Amputation distal right hallux with debridement of necrotic bone and soft tissue performed by Dr. Wooten (05/02/18) - pathology (05/02) pending - blood cultures (05/01/18) --> group B strep - intraoperative culture (05/02) --> group B strep, Gram negative rods - consult ID, appreciate assistacnce - Zosyn (05/01 - present) - Vancomycin (05/02 - present) - ibuprofen and Roxicodone as needed for pain. Pt allergic to tylenol(?) - Pt underwent RLE revascularization with Dr. Ames (05/05/18) 1. Aortogram w/ R LE angiogram 2. R TPT and peroneal NEUROPSYCHIATRIST (2.5-3.0 taperered balloon) 3. L CREMATOR Angioseal - DVT prophylaxis - supportive care - podiatry Dr. Mckeon: 05/04 Continue weightbearing as tolerated in surgical shoe. - pathology pending - case d/w ID, Dr. Benz (05/06/18). Await pathology for final antibiotic recommendations. - DVT prophylaxis - supporitve care Diabetes mellitus type 2 At home patient takes Levemir 45 mg subcu every morning and Levemir 30 mg subcu every afternoon Accu-Cheks AC at bedtime with sliding scale insulin coverage - HgA1C 10.2 (05/02) which is c/w prior outpt measurements - C peptide pending - start amaryl 2mg BID- patient refusing - continue Levemir - increase to 20units qAM - continue 15 units qPM - observe Hypertension Continue patient's home metoprolol 12.5 mg p.o. twice daily Hyperlipidemia Continue patient's home Crestor 5 mg p.o. daily Chronic kidney disease stage II Avoid nephrotoxic agents monitor renal function Post nasal drip/congestion start singular Progress Note: Quality VTE Deep Vein Thrombosis/Pulmonary Embolism Present on Admission: No _ (1) Sepsis Qualifiers: Sepsis type: sepsis due to unspecified organism Qualified Code(s): A41.9 - Sepsis, unspecified organism
--- NOTE | 2018-05-06 19:13 | MP ---
cc: Marisel Marley ROMA DATE OF OPERATION: 05/02/2018 INDICATIONS: The patient presented initially with a chronic ulceration to the right plantar medial aspect of the great toe. She was noted to have an ulceration with necrotic tissue to that area with no real purulence, but some erythema that was extending to the first metatarsophalangeal joint area. I discussed with the patient, after her MRI findings were consistent with osteomyelitis, that she would benefit from a distal amputation of the right hallux. She agreed to move forward with surgery. She was seen in preop holding by myself, nursing staff and anesthesia, where the correct patient, side, and site were all confirmed to be correct in the right foot. Also discussed with the patient that since she had criteria for sepsis that she would benefit from undergoing the surgery first and then a vascular consultation following the surgery, in order to get a handle on the infection and so she could improve clinically sooner. She was taken to surgical suite in supine position. The right foot was prepped and draped in normal sterile fashion. Following timeout as per facility protocol, the right foot was addressed and the distal medial hallux was noted to have necrotic tissue to the plantar medial aspects. There was no stefanie purulence noted, but the necrotic tissue did communicate directly to the bone of the distal phalanx in that area with noted necrosis of bone just under that area of necrotic tissue. There was also noted to be plantar fat pad necrosis in the digit to the surrounding area, which was noted and excisionally debrided with a #15 blade and rongeur down to bleeding tissue and minimal bleeding was noted within the surgical site. Two semi-elliptical incisions were made in order to remove the distal phalanx and distal aspect of the digit and was sent to pathology. A culture was taken prior to irrigation with normal saline and an attempt at primary closure with 2-0 nylon suture. The patient tolerated the procedure and anesthesia well without complications and was taken back to PACU with vital signs stable and vascular status intact to the remainder of the right foot. She will be weightbearing as tolerated to the right foot in surgical shoe. No tourniquet was utilized. We will await the culture results and will order a vascular consultation for further evaluation and treatment. Continue IV antibiotics and we will continue to monitor the soft tissues to see if more proximal debridement will be required at that time. It appeared as though all infectious material was removed, but the viability of the toe is still in question, to be determined by vascular surgery. SHORT OPERATIVE NOTE SURGEON: Marisel Marley DPM GRADUATE NURSE: Staff. PREOPERATIVE DIAGNOSES: Osteomyelitis of right great toe distal phalanx. POSTOPERATIVE DIAGNOSIS: Osteomyelitis of right great toe distal phalanx. PROCEDURE: Amputation, distal right hallux with debridement of necrotic bone and soft tissue, right hallux. PROPHYLAXIS: On IV antibiotics. SPECIMENS: 1. Culture right hallux. 2. Right distal hallux to pathology. ANESTHESIA: General endotracheal anesthesia, plus local consisting of 10 mL of 0.25% Marcaine plain. ESTIMATED BLOOD LOSS: Minimal. No tourniquet utilized. COMPLICATIONS: None. DISPOSITION: Weightbearing as tolerated, right foot in surgical shoe. We will continue to monitor tissues. Vascular consult to determine if further treatment is required. ROMA Ruff/yaya , 05:17 PM , 05:25 PM
[2018-05-06] MEDS ORDERED: Pharmacy Ordered Lab Info OTHER ONE (20:45)
[2018-05-06] MEDS: Montelukast 10 MG Tablet PO SCH (21:05)
[2018-05-06] MEDS: Vancomycin Inj 1,500 MG in Sodium Chlor 0.9% Inj 500 ML IV.SIG SCH (21:45)
[2018-05-07] MEDS: Ibuprofen 600 MG Tablet PO SCH ×4 (00:51→17:41)
[2018-05-07] MEDS: Piperacil/Tazo 3.375 GM Premix 50 ML IV.SIG SCH ×2 (03:50→10:39)
[2018-05-07 08:42] LABS: Baso # (Auto) 0.1 th/mm3 (0.0-0.2); Baso % (Auto) 0.9 % (0.0-2.0); Eos # (Auto) 0.6 th/mm3 (0.0-0.4); Eos % (Auto) 7.1 % (0.0-4.0); Hematocrit 33.1 % (35.0-46.0); Hemoglobin 11.7 gm/dL (11.6-15.3); Lymph # (Auto) 1.7 th/mm3 (1.0-4.8); Lymph % (Auto) 18.8 % (9.0-44.0); Mean Corpuscular HGB Conc 35.4 % (32.0-36.0); Mean Corpuscular Hemoglobin 33.2 pg (27.0-34.0); Mean Corpuscular Volume 93.6 fL (80.0-100.0); Mean Platelet Volume 7.1 fL (7.0-11.0); Mono # (Auto) 0.9 th/mm3 (0.0-0.9); Mono % (Auto) 9.7 % (0.0-8.0); Neut # (Auto) 5.7 th/mm3 (1.8-7.7); Neut % (Auto) 63.5 % (16.0-70.0); Platelet Count 258 th/mm3 (150-450); Red Blood Count 3.54 mil/mm3 (4.00-5.30); Red Cell Distribution Width 13.7 % (11.6-17.2); White Blood Count 8.9 th/mm3 (4.0-11.0)
[2018-05-07 08:50] LABS: Calcium 8.4 mg/dL (8.5-10.1); Carbon Dioxide 22.7 meq/L (21.0-32.0); Potassium 3.8 meq/L (3.5-5.1)
[2018-05-07] MEDS: Glimepiride 2 MG Tablet PO SCH ×2 (09:16→17:43)
[2018-05-07] MEDS: Ibuprofen 600 MG Tablet PO PRN (09:18)
[2018-05-07] MEDS: Aspirin 325 MG Tablet PO SCH (09:19)
[2018-05-07] MEDS: Metoprolol Tartrate 25 MG Tablet PO SCH ×2 (09:20→20:19)
[2018-05-07] MEDS: Senna/Docusate Sodium 8.6/50 MG Tablet PO SCH ×2 (09:20→20:22)
[2018-05-07] MEDS: Insulin NovoLOG Aspart Correctional Sugar Inj SQ SCH ×4 (09:21→20:22)
[2018-05-07] MEDS: Insulin Detemir Inj 1,000 UNIT/10 ML Vial SQ SCH ×2 (09:21→20:21)
--- NOTE | 2018-05-07 10:38 | P.PNIM ---
Subjective Interval history: No new complaints. Overall pt is feeling well today She slept much better last night than the night before. Physical Exam Vital signs: Last Vital Signs Temp 97.8 F 05/07/18 08:00 Pulse 61 05/07/18 08:00 Resp 20 05/07/18 08:00 BP 151/68 H 05/07/18 08:00 Pulse Ox 99 05/07/18 08:00 Narrative: GENERAL: This is a obese 77-year-old female, well-developed patient, in no apparent distress. SKIN: RLE is bandaged, C/D/I CARDIO: Regular RESP: CTA bilaterally. ABD: +BS, soft, non-tender, nondistended. Normal active bowel sounds EXT: Postop dressing dry and intact Results Labs CBC & Chem 7: 05/07/18 06:57 05/07/18 06:57 Imaging Chest X-Ray 05/01/18 15:48 CONCLUSION: No acute intrathoracic disease. Foot X-Ray 05/01/18 15:48 CONCLUSION: No acute fracture or joint dislocation. Primary degenerative changes are noted throughout the foot. Knee X-Ray 05/01/18 16:22 CONCLUSION: Advanced arthropathy with moderate joint effusion No evidence of acute fracture. Foot MRI 05/01/18 18:30 CONCLUSION: 1. Soft tissue swelling and ulceration distally of the great toe. There is suspected osteomyelitis of the distal phalanx, mostly the distal half of the bone. No osteomyelitis of the great toe proximal phalanx or other bones of the right foot. 2. No abscess. Extremity Arterial Study 05/02/18 00:00 CONCLUSION: 1. Significantly reduced DULCE on the right with super normal DULCE on the left. The elevation of the left DULCE likely relates to a heavily calcified atherosclerotic plaque involving the left lower leg which artifactually elevates the DULCE. Foot X-Ray 05/02/18 00:00 CONCLUSION: Post surgical changes are identified first digit. Aorta w/Runoff CTA 05/03/18 00:00 CONCLUSION: 1. Previous stent placement in the proximal superficial femoral arteries bilaterally. No focal discrete high-grade stenosis. Poor to moderate 1-2 vessel runoff bilaterally. See above discussion. No aneurysm or dissection. Assessment and Plan Assessment (1) Diabetic foot infection: Code(s): E11.628 - Type 2 diabetes mellitus with other skin complications; L08.9 - Local infection of the skin and subcutaneous tissue, unspecified Status: Acute (2) Sepsis: Code(s): A41.9 - Sepsis, unspecified organism Status: Acute Plan Diabetic foot infection Osteomyelitis - This a 77-year-old female patient with past medical history which includes chronic kidney disease stage II, diabetes mellitus type 2, diabetic retinopathy , depression, and hypertension. Patient presented to the ER on 05/01/18 due to nonhealing wound right great toe, with fevers and generally feeling unwell. Patient reports that she has had a nonhealing wound on the right great toe for approximately 3 weeks. She stepped on a piece of glass. Patient reports for the past week it is been getting progressively worse. Patient states that it has become more red, swollen, and painful over the past week. Redness began traveling up the foot and ankle from that area. She running a fever and generally feeling unwell yesterday therefore she proceeded to the emergency department for further evaluation and treatment. - Chest X-Ray (05/01/18) -->No acute intrathoracic disease. - X-Ray 05/01/18 --> No acute fracture or joint dislocation. Primary degenerative changes are noted throughout the foot. - Knee X-Ray 05/01/18 --> Advanced arthropathy with moderate joint effusion. No evidence of acute fracture. - Foot MRI (05/01/18) 1. Soft tissue swelling and ulceration distally of the great toe. There is suspected osteomyelitis of the distal phalanx, mostly the distal half of the bone. No osteomyelitis of the great toe proximal phalanx or other bones of the right foot. 2. No abscess. - CTA with runoff (05/03/18) Previous stent placement in the proximal superficial femoral arteries bilaterally. No focal discrete high-grade stenosis. Poor to moderate 1-2 vessel runoff bilaterally. See above discussion. No aneurysm or dissection.Electronically signed by: Brandon Parson MD 05/03/2018 1:16 PM EST - Pt was started on aspirin - Pt underwent Amputation distal right hallux with debridement of necrotic bone and soft tissue performed by Dr. Wooten (05/02/18) - Pathology (05/02): DIGIT, RIGHT DISTAL HALLUX, AMPUTATION: -EPIDERMAL NECROSIS, SOFT TISSUE SUPPURATION WITH ABSCESS, AND ACUTE OSTEOMYELITIS OF UNDERLYING BONE. -ACUTE OSTEOMYELITIS EXTENDS TO THE ARTICULAR END, HOWEVER DOES NOT INVOLVE THE INKED RESECTION MARGIN - Blood cultures (05/01/18) --> group B strep - Intraoperative culture (05/02) --> group B strep, proteus - Repeat blood cultures (05/04/18) --> NGTD - Appreciate consult from ID - Zosyn (05/01 - present) - Vancomycin (05/02 - present) - ibuprofen and Roxicodone as needed for pain. Pt now states that she is NOT allergic to Tylenol - Pt underwent RLE revascularization with Dr. Ames (05/05/18) 1. Aortogram w/ R LE angiogram 2. Right TP trunk and peroneal artery angioplasty with a 2.5-3 mm tapered balloon. 3. Left common femoral to Angio-Seal - Per podiatry Dr. Mckeon: 05/04 Continue weightbearing as tolerated in surgical shoe. - Await final antibiotic recommendations per ID now that pathology has resulted. - DVT prophylaxis - supportive care Diabetes mellitus type 2 - At home patient takes Levemir 45 mg subcu every morning and Levemir 30 mg subcu every afternoon - Accu-Cheks AC at bedtime with sliding scale insulin coverage - HgA1C 10.2 (05/02) which is c/w prior outpt measurements - amaryl 2mg BID ordered but patient refusing - continue Levemir - increase to 20units qAM - continue 15 units qPM - observe Hypertension - Continue patient's home metoprolol 12.5 mg p.o. twice daily Hyperlipidemia - Continue patient's home Crestor 5 mg p.o. daily Chronic kidney disease stage II - Avoid nephrotoxic agents monitor renal function Attending Attestation Patient examined. Assessment and plan formulated with Jemima Gracia PA-C. I agree with the above. Progress Note: Quality VTE Deep Vein Thrombosis/Pulmonary Embolism Present on Admission: No _ (1) Sepsis Qualifiers: Sepsis type: sepsis due to unspecified organism Qualified Code(s): A41.9 - Sepsis, unspecified organism
--- NOTE | 2018-05-07 14:25 | P.PNID ---
Subjective Remarks: Ms. Cisneros is a 77-year-old female with past medical history significant for chronic kidney disease stage II, diabetes type 2, diabetic retinopathy, depression and hypertension. Patient reports that she is fairly independent of activities of daily living and lives by herself at home. It was very difficult to obtain proper chronological history from the patient as she kept interrupting every sentence I spoke. I was able to confirm facts when patient would let me. Patient presented to the emergency room yesterday due to a nonhealing wound in the right great toe with fevers and generalized feeling of unwellness. Patient reports that she has a non-healing wound on the great toe for approximately 3 weeks when she initially stepped on a piece of glass. Patient reports that she loves to decorate her inside and outside of her home and may have stepped on a piece of glass. Patient reports that this became more red swollen and painful over the past week. The redness began to travel up the foot and ankle from that area. This a 77-year-old female patient with past medical history which includes chronic kidney disease stage II, diabetes mellitus type 2, diabetic retinopathy , depression, and hypertension. Patient presented to the ER yesterday due to nonhealing wound right great toe, with fevers and generally feeling unwell. Patient reports that she has had a nonhealing wound on the right great toe for approximately 3 weeks. She reports stepped on a piece of glass. Patient reports for the past week it is been getting progressively worse. Patient states that it has become more red, swollen, and painful over the past week. Redness began traveling up the foot and ankle from that area. She running a fever and generally feeling unwell yesterday therefore she proceeded to the emergency department for further evaluation and treatment. Patient reports she has not yet seen outpatient podiatry or PCP for treatment of the wound. Patient denies nausea vomiting diarrhea constipation shortness of breath or chest pain. MRI showed findings consistent with osteomyelitis to distal phalanx of hallux. She does not see a psych assistant as outpatient currently. Overnight events reviewed. No fever No rash No diarrhea S/b podiatry and cleared for discharge. Antibiotics: Zosyn IV Vanco IV Lines: Line sites with no e.o infection Past Medical History: reviewed Allergies/Adverse Reactions: Allergies adhesive Allergy (Unknown, Verified 05/05/18 12:26) Rash Sulfa (Sulfonamide Antibiotics) Allergy (Unknown, Verified 05/05/18 12:26) Hives acetaminophen [From Lortab] Allergy (Verified 05/01/18 15:33) Hives hydrocodone [From Lortab] Allergy (Verified 05/01/18 15:33) Hives lovastatin, amlodipine besylate, alcohol (drinking) Allergy (Intermediate, Uncoded 05/01/18 15:33) Hives PEPPERS Allergy (Unknown, Uncoded 05/01/18 15:33) Anaphylaxis Objective Vital Signs 05/06/18 16:00 05/06/18 17:44 05/06/18 20:00 Temperature 97.3 F L 98.3 F Pulse Rate 71 69 Respiratory Rate 18 19 Blood Pressure 157/82 H 113/61 Pulse Oximetry 97 97 96 05/06/18 23:55 05/07/18 08:00 05/07/18 11:58 Temperature 97.7 F 97.8 F 97.7 F Pulse Rate 56 L 61 56 L Respiratory Rate 20 20 20 Blood Pressure 145/67 H 151/68 H 165/74 H Pulse Oximetry 96 99 100 Intake & Output 05/06/18 05/07/18 05/07/18 18:59 06:59 18:59 Intake Total 100 / 100 1515 / 1515 50 / 50 Output Total 700 / 700 Balance 100 / 100 1515 / 1515 -650 / -650 Weight 83.8 kg Intake: IV 100 / 100 615 / 615 50 / 50 Zosyn 3.375 GM Premix 50 ML @ 100 / 100 100 / 100 50 / 50 100 mls/hr IV.SIG Q6H [facility] Rx#: [id number] Vancomycin Inj 1,500 MG In NS 515 / 515 Inj 500 ML @ 257.5 mls/hr IV. SIG Q24H [facility] Rx#:[id number] Oral 900 / 900 Output: Urine 700 / 700 Other: # Voids 4 1 # Incontinent Voids 0 Date of Last Bowel Movement 05/04/18 05/07/18 # Bowel Movements 4 1 05/04/18 04:09 Blood - Peripheral Aerobic Blood Culture - Preliminary No growth in 3 days 05/04/18 04:09 Blood - Peripheral Anaerobic Blood Culture - Preliminary No growth in 3 days 05/04/18 04:00 Blood - Peripheral Aerobic Blood Culture - Preliminary No growth in 3 days 05/04/18 04:00 Blood - Peripheral Anaerobic Blood Culture - Preliminary No growth in 3 days 05/02/18 11:15 Tissue - Toe Acid Fast Bacilli Smear - Final No acid fast bacilli seen 05/02/18 11:15 Tissue - Toe Mycobacterial Culture - Pending 05/02/18 11:15 Tissue - Toe Gram Stain - Final 05/02/18 11:15 Tissue - Toe Wound Culture - Final Group B beta Strep Proteus mirabilis 05/01/18 16:25 Blood - Peripheral Aerobic Blood Culture - Final Group B beta Strep 05/01/18 16:25 Blood - Peripheral Anaerobic Blood Culture - Final Group B beta Strep 05/01/18 16:20 Blood - Peripheral Aerobic Blood Culture - Final Group B beta Strep 05/01/18 16:20 Blood - Peripheral Anaerobic Blood Culture - Final Group B beta Strep Lab - Hematology Results 05/06/18 05/07/18 06:43 06:57 WBC 9.0 8.9 RBC 3.58 L 3.54 L Hgb 11.7 11.7 Hct 33.0 L 33.1 L MCV 92.3 93.6 MCH 32.8 33.2 MCHC 35.6 35.4 RDW 13.1 13.7 Plt Count 257 258 MPV 6.9 L 7.1 Neut % (Auto) 68.8 63.5 Lymph % (Auto) 17.0 18.8 [place] % (Auto) 9.0 H 9.7 H Eos % (Auto) 4.5 H 7.1 H Baso % (Auto) 0.7 0.9 Neut # (Auto) 6.2 5.7 Lymph # (Auto) 1.5 1.7 [place] # (Auto) 0.8 0.9 Eos # (Auto) 0.4 0.6 H Baso # (Auto) 0.1 0.1 WBC Differential . . Differential Comment Auto diff final Auto diff final Lab - Chemistry Results 05/03/18 05/05/18 05/05/18 19:11 17:34 21:08 Sodium Potassium Chloride Carbon Dioxide Anion Gap BUN Creatinine Estimated GFR POC Glucose 276 H 297 H Random Glucose C-Peptide 0.78 L Calcium Magnesium 05/06/18 05/06/18 05/06/18 06:43 07:31 11:53 Sodium 143 Potassium 3.6 Chloride 111 H Carbon Dioxide 22.6 Anion Gap 9 BUN 8 Creatinine 0.86 Estimated GFR 64 L POC Glucose 107 243 H Random Glucose 95 C-Peptide Calcium 8.3 L Magnesium 2.1 05/06/18 05/06/18 05/07/18 16:16 19:29 06:57 Sodium 142 Potassium 3.8 Chloride 110 H Carbon Dioxide 22.7 Anion Gap 9 BUN 10 Creatinine 1.02 H Estimated GFR 53 L POC Glucose 270 H 242 H Random Glucose 156 H C-Peptide Calcium 8.4 L Magnesium 2.0 05/07/18 05/07/18 07:48 11:48 Sodium Potassium Chloride Carbon Dioxide Anion Gap BUN Creatinine Estimated GFR POC Glucose 161 H 252 H Random Glucose C-Peptide Calcium Magnesium Imaging: ITS Impressions Chest X-Ray 05/01/18 15:48 CONCLUSION: No acute intrathoracic disease. Knee X-Ray 05/01/18 16:22 CONCLUSION: Advanced arthropathy with moderate joint effusion No evidence of acute fracture. Foot MRI 05/01/18 18:30 CONCLUSION: 1. Soft tissue swelling and ulceration distally of the great toe. There is suspected osteomyelitis of the distal phalanx, mostly the distal half of the bone. No osteomyelitis of the great toe proximal phalanx or other bones of the right foot. 2. No abscess. Extremity Arterial Study 05/02/18 00:00 CONCLUSION: 1. Significantly reduced DULCE on the right with super normal DULCE on the left. The elevation of the left DULCE likely relates to a heavily calcified atherosclerotic plaque involving the left lower leg which artifactually elevates the DULCE. Foot X-Ray 05/02/18 00:00 CONCLUSION: Post surgical changes are identified first digit. Aorta w/Runoff CTA 05/03/18 00:00 CONCLUSION: 1. Previous stent placement in the proximal superficial femoral arteries bilaterally. No focal discrete high-grade stenosis. Poor to moderate 1-2 vessel runoff bilaterally. See above discussion. No aneurysm or dissection. Physical Exam: GENERAL: Well-nourished well-developed, not in acute distress SKIN: Cool and dry, no generalized rash HEAD: Atraumatic. Normocephalic. No temporal or scalp tenderness. EYES: Pupils equal round and reactive. Scleral icterus. No injection or drainage. No petechia ENT: Nothing abnormal detected NECK: Trachea midline. Supple, nontender, no meningeal signs. CARDIOVASCULAR: HS audible. RESPIRATORY: Clear to auscultation bilaterally. GASTROINTESTINAL: Abdomen soft nontender. MUSCULOSKELETAL: Right foot in post op dressing. NEUROLOGICAL: Alert oriented 3. Nonfocal. Psych cooperative IV line sites ok. Assessment and Plan - Plan Sepsis present on admission (fever, leucocytosis and foot infection) Gram positive bacteremia (Strep Grp B) likely secondary to foot infection. Right great toe osteomyelitis atleast 3 weeks duration. DM2 with DM retinopathy. PVD Recs: DC Zosyn IV DC Vanco IV Start Ceftriaxone IV Post hospital infusion orders in chart. PICC order placed. Morgan OSBORNE for [facility] dw patient. Will sign off please call back if any change in clinical condition or questions.
[2018-05-07 14:36] VITALS: RESP 18
--- NOTE | 2018-05-07 14:39 | P.DCO ---
Post Hospital Infusion Therapy - Infusion Therapy Location of Infusion Therapy: Home Health Care IV Infusion Order Appointment Date: 05/07/18 - Patient Information Patient Weight: 83.8 kg - Diagnosis (1) Streptococcus group B infection Code(s): A49.1 - Streptococcal infection, unspecified site (2) Streptococcal bacteremia Code(s): R78.81 - Bacteremia; B95.5 - Unspecified streptococcus as the cause of diseases classified elsewhere (3) Diabetic foot infection Code(s): E11.628 - Type 2 diabetes mellitus with other skin complications; L08.9 - Local infection of the skin and subcutaneous tissue, unspecified - Administer Medication Ceftriaxone Dose: 2 grams IV Directions: q 24 hours Start Treatment: 05/07/18 Stop Treatment: 05/22/18 - Additional Information Venous Access: PICC Line (Ok to place Midline if appropriate.) Additional Instructions: [x] Peripheral flush and dressing changes per protocol [x] 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 [] May leave port accessed during therapy. [] May leave peripheral site accessed for duration of therapy. [x] If patient has SOB or respiratory distress, check oxygen saturation. If less than 90% or clinical signs of respiratory distress, administer oxygen at 2 L/min. via nasal cannula and notify physician. [x] Anaphylaxis/Reaction orders: * Stop infusion. * Keep IV line open with saline flush. * Notify physician. * Monitor vital signs every 15 minutes until symptoms resolve. * Check Oxygen saturation; Oxygen at 2 L/min. via nasal cannula if less than 90% or clinical signs of respiratory distress. * Administer diphenhydramine (Benadryl) 25 mg IV STAT, (unless patient has received as pre-med). May repeat once, if necessary. * Solu-Cortef 250 mg IVP over 30-60 seconds, use 100 mg vials for each dissolution. * Epinephrine (1mg/1 ml) 0.3 mg subcutaneously or IVP now with any signs of respiratory distress. * Check with physician for new additional pre-med orders if patient is re- challenged or re-treated. [x] May remove PICC line when treatment complete, after confirming with Physician. [x] If the patient is admitted to the hospital, the ED, or transferred via [facility] , complete transfer form including medication reconciliation order sheet. Weekly Labs: CBC w/diff, Creatinine, CRP, LFTs (Hepatic Function Test) Additional Information: Please draw weekly labs and fax to Dr.Mitchell Crowder at [facility]. Please call with abnormal lab values or change in clinical condition to her as well. - Case Management Consult Case Management Consult-IVF: Yes - Patient Information Allergies adhesive Allergy (Unknown, Verified 05/05/18 12:26) Rash Sulfa (Sulfonamide Antibiotics) Allergy (Unknown, Verified 05/05/18 12:26) Hives acetaminophen [From Lortab] Allergy (Verified 05/01/18 15:33) Hives hydrocodone [From Lortab] Allergy (Verified 05/01/18 15:33) Hives lovastatin, amlodipine besylate, alcohol (drinking) Allergy (Intermediate, Uncoded 05/01/18 15:33) Hives PEPPERS Allergy (Unknown, Uncoded 05/01/18 15:33) Anaphylaxis
--- NOTE | 2018-05-07 15:04 | P.DCO ---
Diagnosis (1) Streptococcus group B infection: Status: Acute (2) Streptococcal bacteremia: Status: Acute (3) Diabetic foot infection: Status: Acute Home Health Nursing Order: Medical education, Wound care and dressing changes and IV medication administration Case Management Consult Case Management Consult-Home Health: Yes I have seen patient Margarita Cisneros on 05/07/18. My clinical findings support the need for the requested home health care services because: I certify that my clinical findings support that this patient is homebound because:
[2018-05-07] MEDS: Montelukast 10 MG Tablet PO SCH (20:20)
--- NOTE | 2018-05-07 20:58 | P.PNPOD ---
Subjective Interval history: s/p right hallux amputation. DOs 05/02/18 Dr Marley. doing well and seen at bedside this pm. Physical Exam Vital signs: Vital Signs 05/06/18 23:55 05/07/18 08:00 05/07/18 11:58 Temperature 97.7 F 97.8 F 97.7 F Pulse Rate 56 L 61 56 L Respiratory Rate 20 20 20 Blood Pressure 145/67 H 151/68 H 165/74 H Pulse Oximetry 96 99 100 05/07/18 14:35 05/07/18 20:00 Temperature 98.1 F 98.3 F Pulse Rate 62 63 Respiratory Rate 18 18 Blood Pressure 161/92 H 132/62 Pulse Oximetry 100 96 Intake & Output 05/07/18 05/07/18 05/08/18 06:59 18:59 06:59 Intake Total 1515 / 1515 50 / 50 Output Total 700 / 700 Balance 1515 / 1515 -650 / -650 Weight 83.8 kg 83.8 kg Intake: IV 615 / 615 50 / 50 Zosyn 3.375 GM Premix 50 ML @ 100 / 100 50 / 50 100 mls/hr IV.SIG Q6H [facility] Rx#: [id number] Vancomycin Inj 1,500 MG In NS 515 / 515 Inj 500 ML @ 257.5 mls/hr IV. SIG Q24H [facility] Rx#:[id number] Oral 900 / 900 Output: Urine 700 / 700 Other: # Voids 4 1 # Incontinent Voids 0 Date of Last Bowel Movement 05/07/18 # Bowel Movements 4 1 Narrative: RLE: Intact dressing and no strikethrough. Medications and Allergies Active Medications: Active Medications Al Hydroxide/Mg Hydroxide (Milk Of Magnesia Liq) 30 ml PO Q12H PRN PRN Reason: Mild Constipation Alprazolam (Xanax) 0.25 mg PO Q8H PRN PRN Reason: ANXIETY AND/OR AGITATION Aspirin (Aspirin) 325 mg PO DAILY [facility] Last Admin: 05/07/18 09:19 Dose: 325 mg Atorvastatin Calcium (Lipitor) 10 mg PO DAILY [facility] Last Admin: 05/07/18 09:18 Dose: 10 mg Bisacodyl (Dulcolax Supp) 10 mg RECTAL DAILY PRN PRN Reason: SEVERE CONSITIPATION Clonidine HCl (Catapres) 0.2 mg PO Q6H PRN PRN Reason: SBP>160, DBP>90 Last Admin: 05/07/18 14:39 Dose: 0.2 mg Clopidogrel Bisulfate (Plavix) 75 mg PO DAILY [facility] Last Admin: 05/07/18 09:19 Dose: 75 mg Dextrose (D50w Vial) 50 ml IV.PUSH UNSCH PRN PRN Reason: PER HYPOGLYCEMIA PROTOCOL Enalaprilat (Vasotec Inj) 1.5 mg IV.PUSH Q6H PRN PRN Reason: SYS BP GREATER THAN 160 MMHG Glimepiride (Amaryl) 2 mg PO BIDAC [facility] Last Admin: 05/07/18 17:43 Dose: Not Given Glucagon (Glucagon Inj) 1 mg OTHER PRN PRN PRN Reason: for Hypoglycemia Protocol Sodium Chloride (Ns Inj) 500 mls @ 30 mls/hr IV.SIG .Q10H [facility] Last Admin: 05/02/18 13:38 Dose: Not Given Ceftriaxone Sodium 2,000 mg/ (Sodium Chloride) 100 mls @ 200 mls/hr IV.SIG Q24H [facility] Last Admin: 05/07/18 14:39 Dose: 100 mls/hr Ibuprofen (Motrin) 600 mg PO Q6HR PRN PRN Reason: temp above 100f Last Admin: 05/07/18 09:18 Dose: 600 mg Ibuprofen (Motrin) 600 mg PO Q6HR [facility] Last Admin: 05/07/18 17:41 Dose: 600 mg Insulin Aspart (Novolog Insulin [place] Sugar Inj) 0 unit SQ [facility]; Protocol Last Admin: 05/07/18 20:22 Dose: 4 unit Insulin Detemir (Levemir Inj) 15 unit SQ BID [facility] Last Admin: 05/07/18 20:21 Dose: 15 unit Lactulose (Lactulose Liq) 30 ml PO DAILY PRN PRN Reason: SEVERE CONSITIPATION Metoprolol Tartrate (Lopressor) 12.5 mg PO BID [facility] Last Admin: 05/07/18 20:19 Dose: 12.5 mg Miscellaneous Information ([facility] Ordered Lab Info) 0 each OTHER ONCE ONE Stop: 05/10/18 20:46 Montelukast Sodium (Singulair) 10 mg PO HS [facility] Last Admin: 05/07/18 20:20 Dose: 10 mg Ondansetron HCl (Zofran Inj) 4 mg IV.PUSH Q6H PRN PRN Reason: NAUSEA OR VOMITING Oxycodone HCl (Roxicodone) 5 mg PO Q6H PRN PRN Reason: pain scale 6-10, (Chlorthalidone [ Chlorthalidone] 25 Mg) 1 each PO DAILY [facility] Senna/Docusate Sodium (Maribel-Colace) 1 tab PO BID [facility] Last Admin: 05/07/18 20:22 Dose: Not Given Sennosides (Senokot) 17.2 mg PO Q12H PRN PRN Reason: Moderate Constipation Sodium Chloride (Ns Flush) 2 ml IV.FLUSH BID [facility] Last Admin: 05/07/18 20:23 Dose: 2 ml Sodium Chloride (Ns Flush) 2 ml IV.FLUSH PRN PRN PRN Reason: FLUSH AFTER USING IV ACCESS Last Admin: 05/06/18 16:11 Dose: 2 ml Throat Lozenges (Chloraseptic [place]) 2 spray OROPHARYNG Q2H PRN PRN Reason: SORE THROAT Last Admin: 05/05/18 05:28 Dose: 2 spray Allergies Allergy/AdvReac Type Severity Reaction Status Date / Time adhesive Allergy Unknown Rash Verified 05/05/18 12:26 Sulfa (Sulfonamide Allergy Unknown Hives Verified 05/05/18 12:26 Antibiotics) acetaminophen [From Lortab] Allergy Hives Verified 05/01/18 15:33 hydrocodone [From Lortab] Allergy Hives Verified 05/01/18 15:33 lovastatin, amlodipine Allergy Intermediate Hives Uncoded 05/01/18 15:33 besylate, alcohol (drinking) PEPPERS Allergy Unknown Anaphylaxis Uncoded 05/01/18 15:33 Home Medications Medication Instructions Recorded Confirmed Type chlorthalidone 25 mg PO DAILY 05/01/18 05/01/18 History insulin aspart U-100 [Novolog 1 - 10 sliding scale dose SUBCUT 05/01/18 History U-100 Insulin aspart] TIDAC insulin detemir U-100 [Levemir 30 unit SUBCUT QPM 05/01/18 05/01/18 History U-100 Insulin] insulin detemir U-100 [Levemir 45 unit SUBCUT QAM 05/01/18 05/01/18 History U-100 Insulin] metoprolol tartrate 12.5 mg PO BID 05/01/18 05/01/18 History rosuvastatin [Crestor] 5 mg PO DAILY 05/01/18 05/01/18 History Results - Labs CBC & Chem 7: 05/07/18 06:57 05/07/18 06:57 Laboratory Results - last 24 hr 05/06/18 05/07/18 05/07/18 21:45 06:57 06:57 WBC 8.9 RBC 3.54 L Hgb 11.7 Hct 33.1 L MCV 93.6 MCH 33.2 MCHC 35.4 RDW 13.7 Plt Count 258 MPV 7.1 Neut % (Auto) 63.5 Lymph % (Auto) 18.8 [place] % (Auto) 9.7 H Eos % (Auto) 7.1 H Baso % (Auto) 0.9 Neut # (Auto) 5.7 Lymph # (Auto) 1.7 [place] # (Auto) 0.9 Eos # (Auto) 0.6 H Baso # (Auto) 0.1 WBC Differential . Differential Comment Auto diff final Sodium 142 Potassium 3.8 Chloride 110 H Carbon Dioxide 22.7 Anion Gap 9 BUN 10 Creatinine 1.02 H Estimated GFR 53 L POC Glucose Random Glucose 156 H Calcium 8.4 L Magnesium 2.0 Vancomycin Trough 14.8 H 05/07/18 05/07/18 05/07/18 07:48 11:48 17:05 WBC RBC Hgb Hct MCV MCH MCHC RDW Plt Count MPV Neut % (Auto) Lymph % (Auto) [place] % (Auto) Eos % (Auto) Baso % (Auto) Neut # (Auto) Lymph # (Auto) [place] # (Auto) Eos # (Auto) Baso # (Auto) WBC Differential Differential Comment Sodium Potassium Chloride Carbon Dioxide Anion Gap BUN Creatinine Estimated GFR POC Glucose 161 H 252 H 207 H Random Glucose Calcium Magnesium Vancomycin Trough 05/07/18 20:17 WBC RBC Hgb Hct MCV MCH MCHC RDW Plt Count MPV Neut % (Auto) Lymph % (Auto) [place] % (Auto) Eos % (Auto) Baso % (Auto) Neut # (Auto) Lymph # (Auto) [place] # (Auto) Eos # (Auto) Baso # (Auto) WBC Differential Differential Comment Sodium Potassium Chloride Carbon Dioxide Anion Gap BUN Creatinine Estimated GFR POC Glucose 223 H Random Glucose Calcium Magnesium Vancomycin Trough Microbiology 05/04/18 04:09 Blood - Peripheral Aerobic Blood Culture - Preliminary No growth in 3 days 05/04/18 04:09 Blood - Peripheral Anaerobic Blood Culture - Preliminary No growth in 3 days 05/04/18 04:00 Blood - Peripheral Aerobic Blood Culture - Preliminary No growth in 3 days 05/04/18 04:00 Blood - Peripheral Anaerobic Blood Culture - Preliminary No growth in 3 days Assessment and Plan - Assessment (1) Diabetic foot infection Code(s): E11.628 - Type 2 diabetes mellitus with other skin complications; L08.9 - Local infection of the skin and subcutaneous tissue, unspecified Status: Acute (2) Sepsis Code(s): A41.9 - Sepsis, unspecified organism Status: Acute - Plan OK to d/c per Podiatry F/U with on 1 week of d/c 2 weeks IV abx, d/w Dr Benz. Dressing change 05/07/18 (2) Sepsis Qualifiers: Sepsis type: sepsis due to unspecified organism Qualified Code(s): A41.9 - Sepsis, unspecified organism
[2018-05-08] MEDS: Ibuprofen 600 MG Tablet PO SCH ×4 (00:06→19:02)
--- NOTE | 2018-05-08 09:22 | P.DS ---
DS: Providers Date of admission: 05/01/18 17:38 Primary care physician: Jose Manuel Perkins MD Consults: 05/01/18 16:42 Consult to Podiatry Routine Consulting Provider: Marisel Marley Preferred Court Administrator:: Vernon Morelos Reason for Consultation: diabetic foot ulcer Notified:: Service Spoke with:: ADRIA Date Notified:: 05/01/18 Time Notified:: 17:08 Ordering Provider: CARINA 05/02/18 10:26 Consult to Vascular Surgery Routine Consulting Provider: Bhargav Ames Preferred Court Administrator:: Bhargav Ames Reason for Consultation: right hallux infection Notified:: Physician Spoke with:: Date Notified:: 05/02/18 Time Notified:: 10:33 Ordering Provider: DEANDRE 05/02/18 16:20 Consult to Infectious Diseases Routine Consulting Provider: Fay Benz Reason for Consultation: OM and pos blood cultures Notified:: Service Spoke with:: FABIANA Date Notified:: 05/02/18 Time Notified:: 16:42 Ordering Provider: MANA 05/06/18 16:32 HUB Only Consult Order Routine Consulting Provider: [facility] Brief History from admission: This a 77-year-old female patient with past medical history which includes chronic kidney disease stage II, diabetes mellitus type 2, diabetic retinopathy, depression, and hypertension. Patient presented to the ER yesterday due to nonhealing wound right great toe, with fevers and generally feeling unwell. Patient reports that she has had a nonhealing wound on the right great toe for approximately 3 weeks. She reports stepped on a piece of glass. Patient reports for the past week it is been getting progressively worse. Patient states that it has become more red, swollen, and painful over the past week. Redness began traveling up the foot and ankle from that area. She running a fever and generally feeling unwell yesterday therefore she proceeded to the emergency department for further evaluation and treatment. Patient reports she has not yet seen outpatient podiatry or PCP for treatment of the wound. Patient denies nausea vomiting diarrhea constipation shortness of breath or chest pain. MRI showed findings consistent with osteomyelitis to distal phalanx of hallux. She does not see a glass designer as outpatient currently. PMH: chronic kidney disease stage II, diabetes mellitus type 2, diabetic retinopathy , depression, and hypertension PSxH: Cataract surgery, left scopic cholecystectomy, colonoscopy, foot surgery, Iridotomy by YAG laser FMH: CAD, thyroid disorder, breast cancer, colon cancer, diabetes mellitus and hypertension Social history: patient has been approximately 5 years ago she now lives alone in Denies EtOH use Denies tobacco use now or in the past DS: Diagnosis Discharge Diagnosis (1) Diabetic foot infection: Status: Acute (2) Sepsis: Status: Acute DS: Summary Diabetic foot infection Osteomyelitis Step Bacteremia - This a 77-year-old female patient with past medical history which includes chronic kidney disease stage II, diabetes mellitus type 2, diabetic retinopathy , depression, and hypertension. Patient presented to the ER on 05/01/18 due to nonhealing wound right great toe, with fevers and generally feeling unwell. Patient reports that she has had a nonhealing wound on the right great toe for approximately 3 weeks. She stepped on a piece of glass. Patient reports for the past week it is been getting progressively worse. Patient states that it has become more red, swollen, and painful over the past week. Redness began traveling up the foot and ankle from that area. She running a fever and generally feeling unwell yesterday therefore she proceeded to the emergency department for further evaluation and treatment. Imaging studies during admission included: - Chest X-Ray (05/01/18) -->No acute intrathoracic disease. - X-Ray (05/01/18) --> No acute fracture or joint dislocation. Primary degenerative changes are noted throughout the foot. - Knee X-Ray (05/01/18) --> Advanced arthropathy with moderate joint effusion. No evidence of acute fracture. - Foot MRI (05/01/18) 1. Soft tissue swelling and ulceration distally of the great toe. There is suspected osteomyelitis of the distal phalanx, mostly the distal half of the bone. No osteomyelitis of the great toe proximal phalanx or other bones of the right foot. 2. No abscess. - CTA with runoff (05/03/18) - Previous stent placement in the proximal superficial femoral arteries bilaterally. No focal discrete high-grade stenosis. Poor to moderate 1-2 vessel runoff bilaterally. No aneurysm or dissection. Pt was started on aspirin and Plavix by Vascular surgery and this will be continued per their recommendations. Pt underwent Amputation distal right hallux with debridement of necrotic bone and soft tissue performed by Dr. Marley (05/02/18). Pathology (05/02) -->DIGIT, RIGHT DISTAL HALLUX, AMPUTATION :-EPIDERMAL NECROSIS, SOFT TISSUE SUPPURATION WITH ABSCESS, AND ACUTE OSTEOMYELITIS OF UNDERLYING BONE. ACUTE OSTEOMYELITIS EXTENDS TO THE ARTICULAR END, HOWEVER DOES NOT INVOLVE THE INKED RESECTION MARGIN Blood cultures on 05/01/18 all grew out group B strep. Intraoperative culture () grew out group B strep and proteus. Infectious disease was consulted. Pt was started on Zosyn and Vancomycin on 05/01/18. Repeat blood cultures (05/04/18 ) --> NGTD Pt underwent RLE revascularization with Dr. Ames (05/05/18) --> 1. Aortogram w / R LE angiogram. 2. Right TP trunk and peroneal artery angioplasty with a 2.5- 3 mm tapered balloon. 3. Left common femoral to Angio-Seal Per podiatry Dr. Mckeon: 05/04 Continue weightbearing as tolerated in surgical shoe. Abx were changed to Rocephin 2000mg IV Q24H on 05/07 and ID has recommended continuing this for at least 2 weeks, through 05/22/18, with weekly labs: CBC w/ diff, Creatinine, CRP, LFTs. Weekly lab results to be faxed to Dr.Mitchell Crowder at [facility]. Pt will need followup with Dr. Perkins in 7-10 days She will need to followup with Dr. Ames in 1 week for repeat ABIs She will need to followup with Dr. Marley within 1 week Diabetes mellitus type 2 - At home patient takes Levemir 45 mg subcu every morning and Levemir 30 mg subcu every afternoon. While hospitalized she has been on NovoLog SSI and Levemir 20 units in AM and 15 units in PM. Her HgA1C 10.2 (05/02) which is c/w prior outpt measurements. Pt was ordered Amaryl 2mg BID ordered but patient refusing. She is to resume her previous insulin regimen but discussed with her that she may need to titrate down on her Levemir doses depending on what her blood sugars run following discharge. Hypertension - Continue patient's home metoprolol 12.5 mg p.o. twice daily Hyperlipidemia - Continue patient's home Crestor 5 mg p.o. daily Time spent discussing smoking cessation with patient: more than 10 minutes Status at Discharge Functional status at discharge: uses cane/walker Overall status at discharge: patient is not back to baseline Time Spent with Patient Total time spent providing and/or coordinating discharge services: Quality: VTE Deep Vein Thrombosis/Pulmonary Embolism Present on Admission: No Results Completed studies during hospitalization [Text1]: Pending at discharge 05/02/18 08:19 Surgical [PTH] Routine Labs on day of discharge: Labs from last 24 hours 05/08/18 05/07/18 05/07/18 07:54 20:17 17:05 POC Glucose 90 223 H 207 H 05/07/18 11:48 POC Glucose 252 H Preliminary micro results at discharge 05/04/18 04:09 Aerobic Blood Culture - Preliminary Blood - Peripheral No growth in 3 days Anaerobic Blood Culture - Preliminary No growth in 3 days 05/04/18 04:00 Aerobic Blood Culture - Preliminary Blood - Peripheral No growth in 3 days Anaerobic Blood Culture - Preliminary No growth in 3 days Impressions ITS Impressions Chest X-Ray 05/01/18 15:48 CONCLUSION: No acute intrathoracic disease. Knee X-Ray 05/01/18 16:22 CONCLUSION: Advanced arthropathy with moderate joint effusion No evidence of acute fracture. Foot MRI 05/01/18 18:30 CONCLUSION: 1. Soft tissue swelling and ulceration distally of the great toe. There is suspected osteomyelitis of the distal phalanx, mostly the distal half of the bone. No osteomyelitis of the great toe proximal phalanx or other bones of the right foot. 2. No abscess. Extremity Arterial Study 05/02/18 00:00 CONCLUSION: 1. Significantly reduced DULCE on the right with super normal DULCE on the left. The elevation of the left DULCE likely relates to a heavily calcified atherosclerotic plaque involving the left lower leg which artifactually elevates the DULCE. Foot X-Ray 05/02/18 00:00 CONCLUSION: Post surgical changes are identified first digit. Aorta w/Runoff CTA 05/03/18 00:00 CONCLUSION: 1. Previous stent placement in the proximal superficial femoral arteries bilaterally. No focal discrete high-grade stenosis. Poor to moderate 1-2 vessel runoff bilaterally. See above discussion. No aneurysm or dissection. Discharge Plan Discharge Disposition Patient Disposition: Disch W/Home Health Service Discharge Condition Condition: Stable Discharge Order Discharge Orders: Discharge Order (Routine); Ordered 05/08/18 Ordered By: Jemima Gracia Vascular Surgery Clear for Discharge (Routine); Ordered 05/06/18 Ordered By: Bhargav Ames Discharge Details Anticipated Discharge Date: 05/08/18 Discharge Comment: Pt to be discharged to home with [facility] once PICC is placed and arrangements made for outpt abx Pt is to followup with Dr. Marley next week, call for that appt. Pt is to followup with Dr. Ames in 1 week, call for that appt. Pt is to followup with Dr. Perkins in 7-10 days, call for that appt. Physicians Team ED Provider: Ang Booker ED Midlevel Provider: Aiyana Patterson Primary Care Provider: Jose Manuel Prekins Attending Provider: Dario Cabral Other Providers: Marisel Marley ; Bhargav Ames ; Fay Benz ; [facility] Rxs /Orders / Referrals /Forms Prescriptions: New clopidogrel [Plavix] 75 mg Tablet 75 mg PO DAILY Qty: 30 RF: 0 aspirin 325 mg Tablet 325 mg PO DAILY Qty: 30 RF: 0 montelukast 10 mg Tablet 10 mg PO HS Qty: 30 RF: 0 Continue chlorthalidone 25 mg Tablet 25 mg PO DAILY RF: 0 insulin aspart U-100 [Novolog U-100 Insulin aspart] 100 unit/mL Solution 1 - 10 sliding scale dose SUBCUT TIDAC RF: 0 rosuvastatin [Crestor] 5 mg Tablet 5 mg PO DAILY RF: 0 metoprolol tartrate 25 mg Tablet 12.5 mg PO BID RF: 0 insulin detemir U-100 [Levemir U-100 Insulin] 100 unit/mL Solution 45 unit SUBCUT QAM RF: 0 insulin detemir U-100 [Levemir U-100 Insulin] 100 unit/mL Solution 30 unit SUBCUT QPM RF: 0 Ambulatory Orders / Order Sets / DME: Commode 3-in-1 (1 each) (Routine) Location: Determined by Patient Ordered By: Jemima Gracia Walker With Front Wheels (1 each) (Routine) Location: Determined by Patient Ordered By: Jemima Gracia Referrals: Marisel Marley DPM [Physician] - See Instructions Jose Manuel Perkins MD [Primary Care Provider] - See Instructions Bhargav Ames MD [Physician] - See Instructions (Your post op follow up and surveillance DULCE is scheduled on 05/13/18 at 9:30) Discharge Instructions Patient Printed Instructions: Acute Wound Care (DC), Toe Amputation (DC), Incision and Drainage (DC), Angiogram (DC) Status ED Status: Left Department
[2018-05-08] MEDS: Glimepiride 2 MG Tablet PO SCH ×3 (09:24→19:05)
[2018-05-08] MEDS: Metoprolol Tartrate 25 MG Tablet PO SCH ×2 (09:24→20:17)
[2018-05-08] MEDS: Insulin Detemir Inj 1,000 UNIT/10 ML Vial SQ SCH (09:25)
[2018-05-08] MEDS: Insulin NovoLOG Aspart Correctional Sugar Inj SQ SCH ×3 (09:25→19:03)
[2018-05-08] MEDS: Senna/Docusate Sodium 8.6/50 MG Tablet PO SCH (09:26)
[2018-05-08] MEDS: Aspirin 325 MG Tablet PO SCH (09:27)
[2018-05-08 11:47] VITALS: BP 160/71; PULSE 52; TEMP 98.2; O2SAT 99
[2018-05-08] MEDS: Montelukast 10 MG Tablet PO SCH (20:18)
[2018-05-10] MEDS ORDERED: Pharmacy Ordered Lab Info OTHER ONE (20:45)
== END 2018-05-08 20:40 | disposition home health service (06) ==
LOC: NEPD 15:13 → NEDA 17:38 → N07 18:29
PROVIDERS: ADMIT Hospitalist; ATTEND Hospitalist
PROC: ANGIOLE (2018-05-05 14:00)
DX: M86.171 Other acute osteomyelitis, right ankle and foot; E66.9 Obesity, unspecified; F32.9 Major depressive disorder, single episode, unspecified; R09.82 Postnasal drip; A41.9 Sepsis, unspecified organism; E11.319 Type 2 diabetes mellitus with unspecified diabetic retinopathy without macular edema; E11.51 Type 2 diabetes mellitus with diabetic peripheral angiopathy without gangrene; N18.2 Chronic kidney disease, stage 2 (mild); E11.22 Type 2 diabetes mellitus with diabetic chronic kidney disease; S91.111A Laceration without foreign body of right great toe without damage to nail, initial encounter; Z68.33 Body mass index [BMI] 33.0-33.9, adult; E11.628 Type 2 diabetes mellitus with other skin complications; Z79.4 Long term (current) use of insulin; E78.5 Hyperlipidemia, unspecified; I12.9 Hypertensive chronic kidney disease with stage 1 through stage 4 chronic kidney disease, or unspecified chronic kidney disease; W25.XXXA Contact with sharp glass, initial encounter